=== PATIENT | female | born 1960 | race Caucasian/White ===

== ENCOUNTER → 2016-10-08 | Outpatient (CLI) | payer MEDICARE ==
--- NOTE | 2016-10-11 07:43 | MM ---
Reason for exam: screening (asymptomatic). Last mammogram was performed 1 year and 8 months ago. History: Patient is postmenopausal. Physical Findings: A clinical breast exam by your physician is recommended on an annual basis and results should be correlated with mammographic findings. MG 3D Screening Mammo W/Cad Bilateral CC and MLO view(s) were taken. Prior study comparison: January 31, 2015, bilateral MG screening mammo w CAD. November 23, 2012, CAD bilateral diagnostic mammogram. There are scattered fibroglandular densities. Finding: There are typically benign round calcifications in the right breast. There is no discrete abnormality. ASSESSMENT: Benign, BI-RAD 2 RECOMMENDATION: Routine screening mammogram of both breasts in 1 year. Manage on a clinical basis with regard to bilatearl pain.
== END | disposition home or self-care (01) ==
LOC: RADMAMWWP 07:28
PROVIDERS: ATTEND Internal Medicine
DX: Z12.31 Encounter for screening mammogram for malignant neoplasm of breast (principal)
CPT/HCPCS: 77052; 77063; G0202

== ENCOUNTER → 2016-12-07 | Outpatient (CLI) | payer MEDICARE, OTHER ==
[2016-12-07 11:24] LABS: Calcium 9.2 mg/dL (8.4-10.2)
[2016-12-07 12:00] LABS: Hemoglobin A1C 4.9 % (4.2-6.1)
--- NOTE | 2016-12-07 13:47 | XR ---
EXAMINATION TYPE: XR hand complete bilateral DATE OF EXAM: 12/07/2016 10:55 AM COMPARISON: NONE HISTORY: Pain TECHNIQUE: 3 view left hand FINDINGS: Left ankle: No acute fractures are evident. Joint spaces are preserved. Couple of punctate calcificat ions in the proximal interphalangeal joint space narrowing finger. Right hand: No acute fractures are evident. Soft tissues appear normal. Ulnar styloid avulsion with n onunion is likely present. IMPRESSION: 1. No acute osseous abnormality bilateral hands.
[2016-12-09 09:43] LABS: Vitamin E (Alpha Tocopherol) 980 ug/dL (500-1800)
[2016-12-13 10:29] LABS: Mis test requested (Blood) Vitamin B3/Niacin
[2016-12-15 19:39] LABS: Vitamin K 299 pg/mL (80-1160)
== END ==
LOC: LABWHC1 10:09
PROVIDERS: ATTEND Psychiatry & Neurology Pain Medicine
DX: M79.641 Pain in right hand (principal); M79.642 Pain in left hand; G89.29 Other chronic pain; Z79.899 Other long term (current) drug therapy
CPT/HCPCS: 36415; 82306; 82310; 82550; 82607; 83036; 83519; 83735; 84207; 84425; 84446; 84590; 84591; 84597

== ENCOUNTER → 2017-08-16 | Outpatient (CLI) | payer MEDICARE, OTHER ==
[2017-08-16 12:36] LABS: CH 29.7; CHCM 31.9; HCT 48.1 % (34.0-46.0); HDW 2.34; HGB 15.4 gm/dL (11.4-16.0); MCH 29.9 pg (25.0-35.0); MCV 93.6 fL (80.0-100.0); Mean Platelet Volume 7.6; RBC 5.14 m/uL (3.80-5.40); RDW 15.1 % (11.5-15.5); WBC 9.5 k/uL (3.8-10.6)
[2017-08-16 12:48] LABS: Anion Gap 12 mmol/L; Blood Urea Nitrogen 16 mg/dL (7-17); Calcium 10.2 mg/dL (8.4-10.2); Carbon Dioxide 24 mmol/L (22-30); Chloride 105 mmol/L (98-107); Glucose 92 mg/dL (74-99); Non-African American GFR(MDRD) >60 (>60 ml/min/1.73 sqM); Potassium 4.8 mmol/L (3.5-5.1); Sodium 141 mmol/L (137-145)
== END | disposition home or self-care (01) ==
LOC: LABWHC1 12:06
PROVIDERS: ATTEND Internal Medicine Clinical Cardiac Electrophysiology
DX: I49.3 Ventricular premature depolarization (principal)
CPT/HCPCS: 36415; 80048; 85027

== ENCOUNTER 2017-08-22 05:44 | Day surgery (SDC) | payer MEDICARE, OTHER ==
[2017-08-22] MEDS ORDERED: SODIUM CHLORIDE 0.9% 1,000 ML IV SCH (05:55)
[2017-08-22] MEDS ORDERED: HYDROmorphone 0.5 MG/0.5 ML SYRINGE IVP PRN (05:55)
[2017-08-22] MEDS ORDERED: LACTATED RINGERS 1,000 ML IV SCH (05:55)
[2017-08-22] MEDS ORDERED: MIDAZOLAM 2 MG/2 ML VIAL IV PRN (05:55)
[2017-08-22] MEDS ORDERED: MIDAZOLAM 2 MG/2 ML VIAL IV ONE (07:02)
[2017-08-22] MEDS ORDERED: ISOPROTERENOL 250 MCG/1.25 ML SYR IV ONE (07:26)
[2017-08-22] MEDS ORDERED: diphenhydrAMINE 50 MG/ML 1 ML VIAL ONE (07:26)
[2017-08-22] MEDS ORDERED: MIDAZOLAM 2 MG/2 ML VIAL ONE (07:26)
[2017-08-22] MEDS ORDERED: HEPARIN SODIUM,PORCINE 5,000 UNIT/ML 1 ML VIAL ONE (07:26)
[2017-08-22] MEDS ORDERED: fentaNYL (PF) 50 MCG/ML 2 ML AMP ONE (07:26)
[2017-08-22] MEDS ORDERED: ONDANSETRON 4 MG/2 ML VIAL ONE (07:26)
[2017-08-22] MEDS ORDERED: LIDOCAINE 2% INJ 20 MG/ML SQ ONE ×2 (08:21→08:30)
[2017-08-22] MEDS ORDERED: HEPARIN SODIUM,PORCINE/D5W PMX 25,000 UNIT in DEXTROSE/WATER 1 500ML.BAG IV ONE (09:54)
[2017-08-22] MEDS ORDERED: HEPARIN SODIUM (1,000 UNIT/ML) 1,000 UNIT in SODIUM CHLORIDE 0.9% 1,000 ML IRRIGATION ONE (10:30)
[2017-08-22] MEDS ORDERED: ACETAMINOPHEN IV (For NPO) 1,000 MG in EMPTY BAG 1 BAG IVPB ONE (12:04)
[2017-08-22] MEDS ORDERED: ACETAMINOPHEN TAB 325 MG TAB PO PRN (12:04)
[2017-08-22] MEDS ORDERED: HYDROcodone/APAP 5-325MG 1 EACH TAB PO PRN (12:04)
[2017-08-22] MEDS: SODIUM CHLORIDE 0.9% 500 ML IV ONE ×2 (12:36→14:33)
--- NOTE | 2017-08-22 13:04 | CE ---
CARDIAC ELECTROPHYSIOLOGY REPORT Brunilda Wan is a 56-year-old female who has recurrent palpitations and symptomatic PVCs with very high frequency. She has 2 different PVC morphologies with one predominant one for the left ventricle on the anterior base. She is brought in to the EP lab for an EP study and radiofrequency ablation. She also has a history of nonsustained atrial tachycardia and is on low-dose verapamil and this does not suppress her arrhythmias. Patient was brought to the EP lab in a fasting state. Written informed consent was obtained prior to the procedure. She was experiencing very frequent PVCs when she entered the lab, but even with light sedation which she received through the procedure, the PVC frequency significantly reduced. Therefore making the mapping process slow and tedious. Right and left groins were prepped and draped as per protocol. An 8-Yoruba sheath was placed in the right femoral artery and 3 venous sheaths were placed in the right and left femoral veins. Via these diagnostic catheters, intracardiac echo catheter, mapping catheter and ablation catheter were placed. The catheters were placed in the high right atrial, HIS bundle area, RV coronary sinus and the left ventricle. Sinus cycle length 1097 milliseconds, PA interval 178 milliseconds, QRS 79 milliseconds, QT 434 milliseconds. AH interval 74 milliseconds. HV interval 35 milliseconds. Sinus node recovery times of 600, 500, and 400 milliseconds. The 600 and 500 milliseconds were 639 and 1136 milliseconds respectively. Corresponding corrected sinus node recovery times were respectively. AV node Wenckebach block 410 milliseconds, VA Wenckebach block greater than 700 milliseconds. AV node ERP from coronary sinus was 500/380 milliseconds on Isuprel and with ventricular extra stimulation the ventricular ERP was 500/220 milliseconds on high-dose Isuprel. High-dose Isuprel did not induce any ventricular tachycardia. Intracardiac echocardiography was performed and 3-D mapping and anatomic mapping of the left ventricle and aortic root was performed. A PentaRay catheter was then placed in the left ventricle and mapping of the PVCs was performed. This PVC had a right bundle branch block morphology with an M shaped pattern in lead V1 and upright QRS's in the inferior leads and upright QRS's all along the precordial leads. The aVL was negatively oriented. Activation mapping was performed and was superimposed on the anatomic map of the left ventricle and the earliest activation site was identified just about 1.2 cm lateral to the left bundle that was tagged. Following that, the ablation catheter was then placed in the left ventricle and pace mapping was performed. Pace maps were suboptimal at these sites but the patient started to experience more PVCs as she was woken up and with very detailed mapping of the anterior base of the left ventricle the left bundle was identified and tagged and about 1.2 cm away laterally was the earliest activation site. Excellent bipolar signals which were earlier than the onset of the QRS as well as unipolar signals were obtained. RF ablation lesions were delivered at this site. The catheter was placed in a reverse loop and was very stable. Contact force was between 20 to 40 . RF ablation was begun at 10 painting then increased to 15 then to 20 and then to a max of 25 painting. Successful ablation was performed and thereafter no PVCs were identified from the left ventricle. Wide open Isuprel was used and during Isuprel infusion as well as during Isuprel withdrawal, no PVCs were induced. Ventricular extra stimulation was performed. No PVCs induced. Please note that the patient has a second PVC that was originally seen prior to inserting catheters. This is originating from the right ventricle closer to the apex and along the inferior wall but these PVCs subsided completely as mapping of the left ventricle was performed and were not seen even afterwards. If she experiences right- sided PVCs in the future, I will proceed with ablation of these PVCs. Following that, all catheters were removed. Intracardiac echo revealed absence of any pericardial effusion and normal LV function at the end of the procedure. Heparin had been given during the procedure and this was reversed at the end of the procedure and sheaths were removed. FemoStop was applied to the femoral artery puncture site. RESULT: Diagnostic EP study revealin. Normal baseline measurements. 2. Normal AH and HV intervals. 3. Normal sinus node function. 4. Normal AV node function without evidence for any slow pathway conduction or accessory pathway conduction. 5. Very frequent premature ventricular contractions of two different morphologies but one predominant morphology the second morphology subsided completely as the procedure went on. Successful mapping and ablation of an LV PVC from the base of the anterior LV just beyond the aortic root and about 1.2 cm lateral to the left bundle. The patient's AV node conduction remained intact. The PVCs were completely eliminated. MMODL / IJN: [id number] /
--- NOTE | 2017-08-22 13:16 | LTR ---
August 22, 2017 Re: Brunilda Wan Dear Dr. Jernigan: I had the pleasure of seeing Brunilda Wan in electrophysiology. Brunilda Wan underwent mapping and ablation of the left-sided PVCs and these PVCs were originating from the base of the anterior wall about 1.2 cm lateral to the left bundle/left-sided His bundle. They were successfully ablated without injuring the AV node. She also had a second PVC originating from the right ventricle but as the procedure went on these PVCs completely disappeared and therefore obviously were not mapped. If in the future these PVCs reappear, which is quite likely, we will proceed with mapping of these right-sided PVCs. I have asked her to take aspirin 325 mg p.o. daily for one month after this procedure. She also has nonsustained atrial tachycardia and therefore would continue verapamil for now. Thank you for entrusting me in the care of your patient. Warm regards. Sincerely, MD ALEJANDRO Amezcua / EDWIN: [id number] /
[2017-08-22] MEDS ORDERED: ONDANSETRON 4 MG/2 ML VIAL IVP PRN (16:56)
[2017-08-22] MEDS ORDERED: LATANOPROST 0.005% OPHTH DROPS 2.5 ML BTL BOTH EYES SCH (21:00)
[2017-08-22] MEDS ORDERED: MONTELUKAST 10 MG TAB PO SCH (21:00)
[2017-08-22 21:15] VITALS: BMI 30.4
[2017-08-23] MEDS: SERTRALINE 50 MG TAB PO SCH ×2 (00:11→08:22)
[2017-08-23] MEDS ORDERED: LEVOTHYROXINE 25 MCG TAB PO SCH (06:30)
[2017-08-23] MEDS ORDERED: PANTOPRAZOLE 40 MG TABLET PO SCH (07:30)
[2017-08-23 07:59] VITALS: RESP 18; TEMP 98.7
[2017-08-23] MEDS ORDERED: VERAPAMIL SR 120 MG TABLET.ER PO SCH (09:00)
[2017-08-23 12:11] VITALS: BP 124/58; PULSE 74
--- NOTE | 2017-08-23 18:30 | P.DS ---
Providers Attending physician: George Dailey Primary care physician: [facility] Course: Patient is doing well. She complains of a vague discomfort in the chest but looks very comfortable. This is a constant discomfort since yesterday since the ablation. Examination reveals no evidence for any pericardial rub. No JVD heart sounds are normal breath sounds are clear no rhonchi no crackles. She looks very comfortable she is resting comfortably in bed Afebrile 98.7F pulse rate in the 70s, blood pressure 124/58 mmHg Heart sounds S1 and S2 are normal Breath sounds are clear Extremity is warm no edema Groins have healed well Impression Very frequent PVCs from the anterior wall of the left ventricle anterior base just below the aortic root Status post ablation, successful This site was 1.2 cm lateral to the His bundle/left fascicle Today's 12-lead ECG shows sinus rhythm normal SD narrow QRS and normal ST segments No evidence for pericarditis on twelve-lead ECG or ischemia Plan Discharge home today and follow-up in the office in about 2 weeks Patient Condition at Discharge: Stable Plan - Discharge Summary Discharge Rx Participant: No New Discharge Prescriptions: New RX: Aspirin EC [Ecotrin] 325 mg PO DAILY #1 tablet. No Action Albuterol Sulfate [Proair Hfa] 1 - 2 puff INHALATION Q4HR PRN #1 inhaler PRN Reason: difficulty in breathing Sertraline HCl [Zoloft] 50 mg PO DAILY RX: Omeprazole 20 mg PO DAILY RX: Latanoprost Ophth [Xalatan 0.005%] 1 drop BOTH EYES HS Montelukast [Singulair] 10 mg PO HS Levothyroxine Sodium [Synthroid] 12.5 mcg PO DAILY ALPRAZolam [Xanax] 0.5 mg PO HS PRN PRN Reason: Anxiety Verapamil HCl [Verapamil ER] 120 mg PO DAILY Ibuprofen [Motrin] 400 mg PO Q6HR PRN PRN Reason: Moderate Pain Discharge Medication List Albuterol Sulfate [Proair Hfa] 1 - 2 puff INHALATION Q4HR PRN #1 inhaler [Rx] ALPRAZolam [Xanax] 0.5 mg PO HS PRN 08/17/17 [History] Levothyroxine Sodium [Synthroid] 12.5 mcg PO DAILY 08/17/17 [History] Montelukast [Singulair] 10 mg PO HS 08/17/17 [History] RX: Latanoprost Ophth [Xalatan 0.005%] 1 drop BOTH EYES HS 08/17/17 [History] RX: Omeprazole 20 mg PO DAILY 08/17/17 [History] Sertraline HCl [Zoloft] 50 mg PO DAILY 08/17/17 [History] Verapamil HCl [Verapamil ER] 120 mg PO DAILY 08/17/17 [History] Ibuprofen [Motrin] 400 mg PO Q6HR PRN 08/22/17 [History] RX: Aspirin EC [Ecotrin] 325 mg PO DAILY #1 tablet. 08/22/17 [Rx] Follow up Appointment(s)/Referral(s): George Dailey MD [STAFF PHYSICIAN] - 2 Weeks (Keep appointment as scheduled.) Patient Instructions/Handouts: Cardiac Ablation (DC) Care Plan Goals (MU): Post EP study - Ablation instructions 1. Keep access sites dry for 2 days. 2. No heavy lifting or straining for 2 days. 3. Avoid bending the hips repeatedly for 2 days. 4. You may go up and down stairs slowly Call if the following is noted 1. Bleeding, increasing swelling or pain at the access sites. 2. Increasing chest discomfort, especially upon taking a deep breath. 3. Increasing shortness of breath, at rest or with exertion. 4. Undue cough / phlegm 5. Difficulty or pain while swallowing. 6. Pain or change in color in the extremities. 7. Fever, chills, rigors. 8. Increasing headache or neurologic symptoms. 9. Dizziness, fainting, palpitations Discharge Disposition: HOME SELF-CARE
== END 2017-08-23 16:05 | disposition home or self-care (01) ==
LOC: CATHEP 05:44 → 3OBS 11:35 → CATHEP 08-23 16:05
PROVIDERS: ATTEND Internal Medicine Clinical Cardiac Electrophysiology
DX: I49.3 Ventricular premature depolarization (principal); I45.10 Unspecified right bundle-branch block; Z82.49 Family history of ischemic heart disease and other diseases of the circulatory system; E07.9 Disorder of thyroid, unspecified; K21.9 Gastro-esophageal reflux disease without esophagitis; Z79.51 Long term (current) use of inhaled steroids; Z79.899 Other long term (current) drug therapy; Z88.6 Allergy status to analgesic agent; Z88.3 Allergy status to other anti-infective agents
CPT/HCPCS: 93623; 93654; 93662

== ENCOUNTER → 2018-01-20 | Outpatient (CLI) | payer MEDICARE, OTHER ==
[2018-01-20 09:20] LABS: Basophils % (A) 0 %; Eosinophils # (A) 0.1 k/uL (0-0.7); Eosinophils % (A) 2 %; HCT 41.3 % (34.0-46.0); HGB 13.8 gm/dL (11.4-16.0); Lymphocytes # (A) 1.3 k/uL (1.0-4.8); Lymphocytes % (A) 21 %; MCH 30.4 pg (25.0-35.0); MCHC 33.5 g/dL (31.0-37.0); MCV 90.9 fL (80.0-100.0); Mean Platelet Volume 6.8; Monocytes # (A) 0.4 k/uL (0-1.0); Monocytes % (A) 6 %; Neutrophils # (A) 4.2 k/uL (1.3-7.7); Neutrophils % (A) 69 %; Platelet Count 285 k/uL (150-450); RBC 4.54 m/uL (3.80-5.40); RDW 14.1 % (11.5-15.5); WBC 6.1 k/uL (3.8-10.6)
[2018-01-20 10:39] LABS: ALT 17 U/L (9-52); AST 16 U/L (14-36); Albumin 3.9 g/dL (3.5-5.0); Alkaline Phosphatase 68 U/L (38-126); Anion Gap 14 mmol/L; Blood Urea Nitrogen 27 mg/dL (7-17); Calcium 9.5 mg/dL (8.4-10.2); Carbon Dioxide 25 mmol/L (22-30); Chloride 107 mmol/L (98-107); Cholesterol 211 mg/dL (<200); Glucose 95 mg/dL (74-99); HDL Cholesterol 63 mg/dL (40-60); LDL Cholesterol,Calculated 132 mg/dL (0-99); Potassium 4.3 mmol/L (3.5-5.1); Sodium 146 mmol/L (137-145); Total Bilirubin 0.4 mg/dL (0.2-1.3); Total Protein 6.3 g/dL (6.3-8.2); Triglycerides 80 mg/dL (<150)
[2018-01-20 10:57] LABS: T4, Free (Free Thyroxine) 0.94 ng/dL (0.78-2.19)
== END | disposition home or self-care (01) ==
LOC: LABWHC1 08:40
PROVIDERS: ATTEND Internal Medicine
DX: I10 Essential (primary) hypertension (principal); E78.5 Hyperlipidemia, unspecified; E03.9 Hypothyroidism, unspecified; E66.9 Obesity, unspecified; D32.0 Benign neoplasm of cerebral meninges; I63.9 Cerebral infarction, unspecified
CPT/HCPCS: 36415; 80053; 80061; 84439; 84443; 84481; 85025

== ENCOUNTER → 2018-01-23 | Outpatient (CLI) | payer MEDICARE, OTHER ==
--- NOTE | 2018-01-23 18:31 | US ---
EXAMINATION TYPE: US carotid duplex BILAT DATE OF EXAM: 01/23/2018 COMPARISON: NONE CLINICAL HISTORY: I63.9 Cerebral infarction / D32.9 Meningioma. TIA weakness EXAM MEASUREMENTS: RIGHT: Peak Systolic Velocity (PSV) cm/sec ----- Right CCA: 90.0 ----- Right ICA: 94.4 ----- Right ECA: 95.8 ICA/CCA ratio: 1.0 RIGHT: End Diastole cm/sec ----- Right CCA: 24.6 ----- Right ICA: 33.3 ----- Right ECA: 11.5 LEFT: Peak Systolic Velocity (PSV) cm/sec ----- Left CCA: 73.9 ----- Left ICA: 84.5 ----- Left ECA: 97.7 ICA/CCA ratio: 1.1 LEFT: End Diastole cm/sec ----- Left CCA: 21.0 ----- Left ICA: 26.3 ----- Left ECA: 10.4 VERTEBRALS (direction of flow): Right Vertebral: Antegrade Left Vertebral: Antegrade Rhythm: Normal No significant stenosis seen IMPRESSION: There is antegrade flow in the vertebral arteries. The images and measurements suggest l ess than 25% stenosis in both internal carotid arteries. Criteria for Assigning % of Stenosis / Diameter reduction (Estimation based on the indirect measurements of the internal carotid artery velocities (ICA PSV). 1. Normal (no stenosis)=ICA PSV < 125 cm/s: ratio < 2.0: ICA EDV<40 cm/s. 2. Less than 50% stenosis=ICA PSV < 125 cm/s: ratio < 2.0: ICA EDV<40 cm/s. 3. 50 to 69% stenosis=ICA PSV of 125 to 230 cm/s: ration 2.0 ? 4.0: ICA EDV 40-100 cm/s. 4. Greater than 70% stenosis to near occlusion= ICA PSV > 230 cm/s: ratio > 4.0: ICA EDV > 100 cm/s. 5. Near occlusion= ICA PSV velocities may be low or undetectable: variable ratio and ICA EDV. 6. Total occlusion=unable to detect flow.
--- NOTE | 2018-01-23 23:51 | MR ---
EXAMINATION TYPE: MR brain wo/w con DATE OF EXAM: 01/23/2018 COMPARISON: NONE HISTORY: TIA, meningioma TECHNIQUE: Multiplanar, multisequence images of the brain and brainstem is performed without and with IV contras t, utilizing 7.5 mL intravenous Gadavist . FINDINGS: On the FLAIR images there are scattered white matter high signal foci at the figueroa-white mat ter junction of both cerebral hemispheres. The largest measures 8 mm on the left side. The total numb ers less than 10. There is a 1 cm area of slight increased signal on the right side of the sangita. Ther e is no midline shift. There is no sign of intracranial hemorrhage. The contrast images show no patho logic enhancement. Sella turcica appears normal. IMPRESSION: There are scattered white matter lesions that also involve the right side of the sangita. Th erum appear slightly more numerous and larger than the previous exam. This could relate to demyelinati ng disease or microvascular ischemia. I do not see evidence of a meningioma.
== END | disposition home or self-care (01) ==
LOC: RADMRIMAIN 16:59
PROVIDERS: ATTEND Psychiatry & Neurology Neurology
DX: I63.9 Cerebral infarction, unspecified (principal); Z88.2 Allergy status to sulfonamides; Z88.1 Allergy status to other antibiotic agents
CPT/HCPCS: 70553; 93880

== ENCOUNTER → 2018-02-16 | Outpatient (CLI) | payer MEDICARE, OTHER ==
--- NOTE | 2018-02-16 13:40 | MM ---
Reason for exam: screening (asymptomatic). Last mammogram was performed 1 year and 4 months ago. History: Patient is postmenopausal. Physical Findings: A clinical breast exam by your physician is recommended on an annual basis and results should be correlated with mammographic findings. MG 3D Screening Mammo W/Cad Bilateral CC and MLO view(s) were taken. Prior study comparison: October 08, 2016, bilateral MG 3d screening mammo w/cad. January 31, 2015, bilateral MG screening mammo w CAD. There are scattered fibroglandular densities. No suspicious abnormality. ASSESSMENT: Negative, BI-RAD 1 RECOMMENDATION: Routine screening mammogram of both breasts in 1 year. Manage patient on a clinical basis. Clinical evaluation of patient's left breast lump/soreness. If this is a new finding diagnostic ultrasound of the left breast is recommended.
== END | disposition home or self-care (01) ==
LOC: RADMAMWWP 08:23
PROVIDERS: ATTEND Internal Medicine
DX: Z12.31 Encounter for screening mammogram for malignant neoplasm of breast (principal)
CPT/HCPCS: 77063; 77067

== ENCOUNTER 2018-03-13 06:43 | Emergency (ER) | payer MEDICARE, OTHER ==
[2018-03-13 06:50] VITALS: BP 138/82; PULSE 78; RESP 20; TEMP 98.1
[2018-03-13] MEDS ORDERED: AMOXIC-POT CLAV 875-125MG 1 EACH TAB PO STA (07:39)
[2018-03-13] MEDS ORDERED: predniSONE 50 MG TAB PO STA (07:39)
--- NOTE | 2018-03-13 07:44 | ED ---
URI HPI - General Chief Complaint: Upper Respiratory Infection Stated Complaint: Sore Thorat/Cough/SOB Time Seen by Provider: 03/13/18 07:20 Source: patient, RN notes reviewed Mode of arrival: ambulatory Limitations: no limitations - History of Present Illness Initial Comments: This is a 57-year-old female with a history of asthma COPD who states she had the onset over the past 1-2 days of sore throat cough with yellow phlegm some sweats slight headache. She states her developed this 2 days earlier after going to a graduation ceremony a local auditory and. She denies any chest pain with this no lightheadedness or dizziness just a cough. She states she does have an albuterol inhaler at home this has helped somewhat with the cough but now feel her symptoms. No other modifying factors at this time MD Complaint: cough, sore throat, other - Related Data Home Medications Medication Instructions Recorded Confirmed ALPRAZolam [Xanax] 0.5 mg PO HS PRN 08/17/17 08/22/17 Latanoprost Ophth [Xalatan 0.005%] 1 drop BOTH EYES HS 08/17/17 08/22/17 Levothyroxine Sodium [Synthroid] 12.5 mcg PO DAILY 08/17/17 08/22/17 Montelukast [Singulair] 10 mg PO HS 08/17/17 08/22/17 Omeprazole 20 mg PO DAILY 08/17/17 08/22/17 Sertraline HCl [Zoloft] 50 mg PO DAILY 08/17/17 08/22/17 Verapamil HCl [Verapamil ER] 120 mg PO DAILY 08/17/17 08/22/17 Ibuprofen [Motrin] 400 mg PO Q6HR PRN 08/22/17 08/22/17 Previous Rx's Medication Instructions Recorded Albuterol Sulfate [Proair Hfa] 1 - 2 puff INHALATION Q4HR PRN #1 01/11/16 inhaler Aspirin EC [Ecotrin] 325 mg PO DAILY #1 tablet. 08/22/17 Amoxicillin/Potassium Clav 1 tab PO Q12HR #20 tab 03/13/18 [Augmentin 875-125 Tablet] predniSONE 20 mg PO BID #10 tab 03/13/18 Allergies Allergy/AdvReac Type Severity Reaction Status Date / Time bacitracin Allergy Rash/Hives Verified 03/13/18 06:50 bacitracin zinc Allergy Rash/Hives Verified 03/13/18 06:50 [From Neosporin ([id number])] ketorolac [From Toradol] Allergy Swelling Verified 03/13/18 06:50 neomycin sulfate Allergy Rash/Hives Verified 03/13/18 06:50 [From Neosporin ([id number])] polymyxin B Allergy Rash/Hives Verified 03/13/18 06:50 [From Neosporin ([id number])] Review of Systems ROS Statement: Those systems with pertinent positive or pertinent negative responses have been documented in the HPI. ROS Other: All systems not noted in ROS Statement are negative. Past Medical History Past Medical History: Asthma, GERD/Reflux Additional Past Medical History / Comment(s): hiatel hernia, glaucoma History of Any Multi-Drug Resistant Organisms: None Reported Past Surgical History: Cholecystectomy Additional Past Surgical History / Comment(s): carpal tunnel, sinus surgery, heart ablasion Past Psychological History: No Psychological Hx Reported Smoking Status: Former smoker Past Alcohol Use History: None Reported Past Drug Use History: Marijuana General Exam - General Exam Comments Initial Comments: This is a well-developed well-nourished awake alert oriented 3 female Limitations: no limitations General appearance: alert, in no apparent distress Head exam: Present: atraumatic, normocephalic, normal inspection Eye exam: Present: normal appearance, PERRL, EOMI. Absent: scleral icterus, conjunctival injection, periorbital swelling ENT exam: Present: TM's normal bilaterally, other (Posterior pharyngeal hyperemia with tonsillar hyperemia mild prominence of the tonsils.) Neck exam: Present: normal inspection, full ROM, other (Some nontender lymphadenopathy noted.) Respiratory exam: Present: other (Some basilar rhonchi that clear with coughing and deep breathing.) Cardiovascular Exam: Present: regular rate, normal rhythm, normal heart sounds. Absent: systolic murmur, diastolic murmur, rubs, gallop, clicks GI/Abdominal exam: Present: soft, normal bowel sounds. Absent: distended, tenderness, guarding, rebound, rigid Extremities exam: Present: normal inspection, full ROM, normal capillary refill. Absent: tenderness, pedal edema, joint swelling, calf tenderness Back exam: Present: normal inspection Neurological exam: Present: alert, oriented X3, CN II-XII intact Psychiatric exam: Present: normal affect, normal mood Skin exam: Present: warm, dry, intact, normal color. Absent: rash Course Vital Signs 03/13/18 06:47 Temperature 98.1 F Pulse Rate 78 Respiratory 20 Rate Blood Pressure 138/82 O2 Sat by Pulse 97 Oximetry Medical Decision Making - Medical Decision Making No further workup was indicated this time the presentation is consistent with a tonsillitis and bronchitis. Patient will be placed on appropriate medication she has an inhaler at home she is instructed to use this as needed Disposition Clinical Impression: Tonsillitis, Tracheobronchitis Disposition: HOME SELF-CARE Condition: Good Instructions: Tonsillitis (ED), Acute Bronchitis (ED) Prescriptions: Amoxicillin/Potassium Clav [Augmentin 875-125 Tablet] 1 tab PO Q12HR #20 tab predniSONE 20 mg PO BID #10 tab Is patient prescribed a controlled substance at d/c from ED?: No Referrals: Jay Fall DO [Primary Care Provider] - 1-2 days
== END 2018-03-13 07:50 | disposition home or self-care (01) ==
LOC: EC 06:43
DX: J03.90 Acute tonsillitis, unspecified (principal); J44.9 Chronic obstructive pulmonary disease, unspecified; K21.9 Gastro-esophageal reflux disease without esophagitis; Z87.891 Personal history of nicotine dependence; Z79.899 Other long term (current) drug therapy; Z88.1 Allergy status to other antibiotic agents; Z88.6 Allergy status to analgesic agent
CPT/HCPCS: 99283 ×2; 73721; J7512

== ENCOUNTER → 2018-03-13 | Outpatient (CLI) | payer MEDICARE, OTHER ==
--- NOTE | 2018-03-13 08:24 | MR ---
EXAMINATION TYPE: MR knee RT wo con DATE OF EXAM: 03/13/2018 COMPARISON: NONE HISTORY: Right knee pain TECHNIQUE: Multiplanar, multisequence imaging of the right knee is performed without IV contrast. FINDINGS: MEDIAL MENISCUS: There is blunting of the free edge of the posterior horn of the lateral meniscus com patible with a small radial tear appearing more pronounced at the superior articular surface. LATERAL MENISCUS: Anterior and posterior horns are intact without tear. CRUCIATE LIGAMENTS: The anterior and posterior cruciate ligaments are intact and unremarkable. COLLATERAL LIGAMENTS: The medial collateral ligament and lateral collateral ligament complex are inta ct and unremarkable. EXTENSOR MECHANISM: Visualized quadriceps and patellar tendons are intact. There is slight increased signal at the origin of the patellar tendon insertion of the quadriceps tendon compatible low-grade i njury. Minimal nonspecific subcutaneous soft tissue swelling is seen overlying the patellar tendon. EFFUSION: No significant suprapatellar joint effusion. POPLITEAL CYST: There is a mildly loculated popliteal cyst that is elongated measuring at least 5.3 cm in craniocaudal dimension. TRICOMPARTMENT SPACES: There is mild medial compartment and patellofemoral compartment joint space na rrowing. CARTILAGE: Patellofemoral cartilage is slightly heterogenous in signal in the lateral facet but maint ained. There is partial thickness chondral defect of the weightbearing surface of the medial femoral condyle measuring 1.1 cm x 0.6 cm with focal fissure more laterally. There is generalized thinning and signal heterogeneity in the lateral compartment cartilage with smal l focal fissure towards the tibial eminence and small partial thickness chondral defect measuring 5 m m. BONE MARROW SIGNAL: There are bilateral stable appearing osteochondral defects. Within the lateral fe moral condyle the osteochondral defect measures 1.8 x 0.9 cm in anterior posterior by transverse dime nsion. Within the medial femoral condyle the osteochondral defect at the posterior weightbearing surf manoj is best seen on coronal images measuring 9 mm in transverse dimension and 9 mm in anterior notch machine operator ior dimension. This also appears stable. IMPRESSION: 1. Small radial tear of the free edge of the posterior horn of the medial meniscus best seen at the s uperior articular surface. 2. Stable appearing osteochondral defects of both the medial femoral condyle and lateral femoral cond yle measuring up to 1.8 cm within the lateral femoral condyle and 9 mm within the medial femoral cond yle. 3. Tricompartmental arthrosis and tricompartmental chondrosis with no full-thickness cartilaginous de fects. Partial-thickness chondral defect of the medial weightbearing surface measures 1.1 cm. 4. Elongated multiloculated popliteal cyst extending 5.3 cm in craniocaudal dimension. 5. Minimal increased signal at the insertion of the quadriceps tendon and origin of the patellar tend on compatible with low-grade injury.
== END | disposition home or self-care (01) ==
LOC: RADMRIMAIN 06:06
PROVIDERS: ATTEND Psychiatry & Neurology Pain Medicine
DX: S83.241A Other tear of medial meniscus, current injury, right knee, initial encounter (principal); M17.11 Unilateral primary osteoarthritis, right knee

== ENCOUNTER → 2018-06-01 | Outpatient (CLI) | payer MEDICARE, OTHER ==
[2018-06-01 09:05] LABS: T4, Free (Free Thyroxine) 0.94 ng/dL (0.78-2.19)
[2018-06-01 21:02] LABS: Iron Saturation 31.45 (12.00-45.00)
== END | disposition home or self-care (01) ==
LOC: LABWHC1 08:00
PROVIDERS: ATTEND Psychiatry & Neurology Neurology
DX: E03.9 Hypothyroidism, unspecified (principal); R53.82 Chronic fatigue, unspecified
CPT/HCPCS: 36415; 82607; 82728; 82746; 83540; 83550; 84207; 84425; 84439; 84443; 84466; 84481; 84591

== ENCOUNTER 2018-07-09 08:18 | Emergency (ER) | payer MEDICARE, OTHER ==
[2018-07-09] MEDS ORDERED: ONDANSETRON 4 MG/2 ML VIAL IVP STA (08:36)
[2018-07-09] MEDS ORDERED: SODIUM CHLORIDE 0.9% 2,000 ML IV STA (08:36)
[2018-07-09] MEDS ORDERED: SODIUM CHLORIDE 0.9% 1,000 ML IV STA (08:36)
--- NOTE | 2018-07-09 09:02 | ED ---
Nausea/Vomiting/Diarrhea HPI - General Chief complaint: Nausea/Vomiting/Diarrhea Stated complaint: Stomach pain/vomiting Time Seen by Provider: 07/09/18 08:29 Source: patient, family, RN notes reviewed Mode of arrival: wheelchair Limitations: no limitations - History of Present Illness Initial comments: This is a 57-year-old female who had the onset of nausea vomiting and diarrhea about 4 AM this morning. She's had multiple episodes of nausea vomiting and presents retching and vomiting to the emergency department. states that they're concerned about food poisoning days the same restaurant but had different food last night. She has not been sick. Additionally she has been sprain plants yesterday for about 4 hours with spinasyd and was concerned this may be the cause. No fevers chills nausea vomiting sweats chest pain or shortness of breath MD complaint: nausea, vomiting, diarrhea - Related Data Home Medications Medication Instructions Recorded Confirmed ALPRAZolam [Xanax] 0.5 mg PO HS PRN 08/17/17 08/22/17 Latanoprost Ophth [Xalatan 0.005%] 1 drop BOTH EYES HS 08/17/17 08/22/17 Levothyroxine Sodium [Synthroid] 12.5 mcg PO DAILY 08/17/17 08/22/17 Montelukast [Singulair] 10 mg PO HS 08/17/17 08/22/17 Omeprazole 20 mg PO DAILY 08/17/17 08/22/17 Sertraline HCl [Zoloft] 50 mg PO DAILY 08/17/17 08/22/17 Verapamil HCl [Verapamil ER] 120 mg PO DAILY 08/17/17 08/22/17 Ibuprofen [Motrin] 400 mg PO Q6HR PRN 08/22/17 08/22/17 Previous Rx's Medication Instructions Recorded Albuterol Sulfate [Proair Hfa] 1 - 2 puff INHALATION Q4HR PRN #1 01/11/16 inhaler Aspirin EC [Ecotrin] 325 mg PO DAILY #1 tablet. 08/22/17 Amoxicillin/Potassium Clav 1 tab PO Q12HR #20 tab 03/13/18 [Augmentin 875-125 Tablet] predniSONE 20 mg PO BID #10 tab 03/13/18 Promethazine [Phenergan] 25 mg PO Q6HR PRN #12 tablet 07/09/18 Allergies Allergy/AdvReac Type Severity Reaction Status Date / Time bacitracin Allergy Rash/Hives Verified 03/13/18 06:50 bacitracin zinc Allergy Rash/Hives Verified 03/13/18 06:50 [From Neosporin ([id number])] ketorolac [From Toradol] Allergy Swelling Verified 03/13/18 06:50 neomycin sulfate Allergy Rash/Hives Verified 03/13/18 06:50 [From Neosporin ([id number])] polymyxin B Allergy Rash/Hives Verified 03/13/18 06:50 [From Neosporin ([id number])] Review of Systems ROS Statement: Those systems with pertinent positive or pertinent negative responses have been documented in the HPI. ROS Other: All systems not noted in ROS Statement are negative. Past Medical History Past Medical History: Asthma, GERD/Reflux Additional Past Medical History / Comment(s): hiatel hernia, glaucoma History of Any Multi-Drug Resistant Organisms: None Reported Past Surgical History: Cholecystectomy Additional Past Surgical History / Comment(s): carpal tunnel, sinus surgery, heart ablasion Past Psychological History: No Psychological Hx Reported Smoking Status: Former smoker Past Alcohol Use History: None Reported Past Drug Use History: Marijuana General Exam - General Exam Comments Initial Comments: This is a well-developed well-nourished awake alert oriented 3 female she is actively vomiting Limitations: no limitations General appearance: alert, anxious, in distress Head exam: Present: atraumatic, normocephalic, normal inspection Eye exam: Present: normal appearance, PERRL, EOMI. Absent: scleral icterus, conjunctival injection, periorbital swelling ENT exam: Present: mucous membranes dry Neck exam: Present: normal inspection. Absent: tenderness, meningismus, lymphadenopathy Respiratory exam: Present: normal lung sounds bilaterally. Absent: respiratory distress, wheezes, rales, rhonchi, stridor Cardiovascular Exam: Present: regular rate, normal rhythm, normal heart sounds. Absent: systolic murmur, diastolic murmur, rubs, gallop, clicks GI/Abdominal exam: Present: soft, normal bowel sounds. Absent: distended, tenderness, guarding, rebound, rigid Extremities exam: Present: normal inspection, full ROM, normal capillary refill. Absent: tenderness, pedal edema, joint swelling, calf tenderness Back exam: Present: normal inspection Neurological exam: Present: alert, oriented X3, CN II-XII intact Psychiatric exam: Present: normal affect, anxious Skin exam: Present: warm, dry, intact, normal color. Absent: rash Course Vital Signs 07/09/18 08:24 Temperature 97.6 F Pulse Rate 73 Respiratory 22 Rate Blood Pressure 162/94 O2 Sat by Pulse 99 Oximetry Medical Decision Making - Medical Decision Making I did reevaluate patient several occasions she is feeling much improved at this time she will be discharged - Lab Data Result diagrams: 07/09/18 09:07 07/09/18 09:07 Lab Results 07/09/18 07/09/18 07/09/18 Range/Units 09:07 09:07 09:07 WBC 14.3 H (3.8-10.6) k/uL RBC 4.89 (3.80-5.40) m/uL Hgb 14.7 (11.4-16.0) gm/dL Hct 43.4 (34.0-46.0) % MCV 88.8 (80.0-100.0) fL MCH 30.0 (25.0-35.0) pg MCHC 33.8 (31.0-37.0) g/dL RDW 14.4 (11.5-15.5) % Plt Count 303 (150-450) k/uL Neutrophils % 91 % Lymphocytes % 5 % Monocytes % 3 % Eosinophils % 1 % Basophils % 0 % Neutrophils # 13.0 H (1.3-7.7) k/uL Lymphocytes # 0.7 L (1.0-4.8) k/uL Monocytes # 0.4 (0-1.0) k/uL Eosinophils # 0.1 (0-0.7) k/uL Basophils # 0.0 (0-0.2) k/uL Sodium 142 (137-145) mmol/L Potassium 4.4 (3.5-5.1) mmol/L Chloride 111 H (98-107) mmol/L Carbon Dioxide 21 L (22-30) mmol/L Anion Gap 10 mmol/L BUN 23 H (7-17) mg/dL Creatinine 0.72 (0.52-1.04) mg/dL Est GFR (CKD-EPI)AfAm >90 (>60 ml/min/1.73 sqM) Est GFR (CKD-EPI)NonAf >90 (>60 ml/min/1.73 sqM) Glucose 196 H (74-99) mg/dL Calcium 9.6 (8.4-10.2) mg/dL Total Bilirubin 0.6 (0.2-1.3) mg/dL AST 21 (14-36) U/L ALT 25 (9-52) U/L Alkaline Phosphatase 87 (38-126) U/L Total Creatine Kinase 104 (30-135) U/L CK-MB (CK-2) 1.2 (0.0-2.4) ng/mL CK-MB (CK-2) Rel Index 1.2 Troponin I <0.012 (0.000-0.034) ng/mL Total Protein 7.0 (6.3-8.2) g/dL Albumin 4.3 (3.5-5.0) g/dL Amylase 90 (30-110) U/L Lipase 156 (23-300) U/L - Radiology Data Radiology results: report reviewed, image reviewed (I did review the imaging and report no acute findings.) Disposition Clinical Impression: Gastroenteritis, Dehydration Disposition: HOME SELF-CARE Condition: Good Instructions: Acute Nausea and Vomiting (ED), Acute Diarrhea (ED), Dehydration (ED) Prescriptions: Promethazine [Phenergan] 25 mg PO Q6HR PRN #12 tablet PRN Reason: Nausea Is patient prescribed a controlled substance at d/c from ED?: No Referrals: Jay Fall DO [Primary Care Provider] - 1-2 days
[2018-07-09 09:16] LABS: Basophils % (A) 0 %; Eosinophils # (A) 0.1 k/uL (0-0.7); Eosinophils % (A) 1 %; HCT 43.4 % (34.0-46.0); HGB 14.7 gm/dL (11.4-16.0); Lymphocytes # (A) 0.7 k/uL (1.0-4.8); Lymphocytes % (A) 5 %; MCHC 33.8 g/dL (31.0-37.0); MCV 88.8 fL (80.0-100.0); Mean Platelet Volume 6.9; Monocytes # (A) 0.4 k/uL (0-1.0); Monocytes % (A) 3 %; Neutrophils % (A) 91 %; Platelet Count 303 k/uL (150-450); RBC 4.89 m/uL (3.80-5.40); RDW 14.4 % (11.5-15.5); WBC 14.3 k/uL (3.8-10.6)
[2018-07-09 09:25] LABS: ALT 25 U/L (9-52); AST 21 U/L (14-36); Albumin 4.3 g/dL (3.5-5.0); Alkaline Phosphatase 87 U/L (38-126); Amylase 90 U/L (30-110); Anion Gap 10 mmol/L; Blood Urea Nitrogen 23 mg/dL (7-17); Calcium 9.6 mg/dL (8.4-10.2); Carbon Dioxide 21 mmol/L (22-30); Chloride 111 mmol/L (98-107); Glucose 196 mg/dL (74-99); Lipase 156 U/L (23-300); Potassium 4.4 mmol/L (3.5-5.1); Sodium 142 mmol/L (137-145); Total Bilirubin 0.6 mg/dL (0.2-1.3)
[2018-07-09] MEDS ORDERED: PROMETHAZINE INJ 25 MG in SODIUM CHLORIDE 0.9% 50 ML IVPB STA (09:26)
[2018-07-09 09:38] LABS: Creatine Kinase 104 U/L (30-135)
[2018-07-09 09:51] LABS: Creatine Kinase MB 1.2 ng/mL (0.0-2.4); Troponin I <0.012 ng/mL (0.000-0.034)
--- NOTE | 2018-07-09 10:23 | XR ---
EXAMINATION TYPE: XR KUB , 2 VIEWS DATE OF EXAM ORDERED: 07/09/2018 HISTORY: pain. COMPARISON: None. FINDINGS: The lung bases are clear. Within the abdomen, the gallbladder is been removed. There is a paucity of gas within the bowel. Ther e is no evidence of obstruction or free air. No unusual calcifications are seen. IMPRESSION: NO ACUTE INTRA-ABDOMINAL ABNORMALITY.
[2018-07-09 11:33] VITALS: BP 131/79; PULSE 69; RESP 18; TEMP 98.2
== END 2018-07-09 11:33 | disposition home or self-care (01) ==
LOC: EC 08:18
DX: K52.9 Noninfective gastroenteritis and colitis, unspecified (principal); J45.909 Unspecified asthma, uncomplicated; K21.9 Gastro-esophageal reflux disease without esophagitis; H40.9 Unspecified glaucoma; Z87.19 Personal history of other diseases of the digestive system; Z90.49 Acquired absence of other specified parts of digestive tract; Z87.891 Personal history of nicotine dependence; Z79.899 Other long term (current) drug therapy; Z88.1 Allergy status to other antibiotic agents; Z88.6 Allergy status to analgesic agent
CPT/HCPCS: 36415; 80053; 82150; 82550; 82553; 83690; 84484; 85025; 74018; 99284; 96365; 96375; 96361; J2550; J2405

== ENCOUNTER → 2019-05-02 | Outpatient (CLI) | payer MEDICARE, OTHER ==
--- NOTE | 2019-05-02 13:41 | XR ---
EXAMINATION TYPE: XR cervical spine 6 views comp, XR lumbosacral spine 5 views DATE OF EXAM: 05/02/2019 COMPARISON: None HISTORY: 58-year-old female cervicalgia and low back pain FINDINGS: Cervical spine: Degenerative changes of the C1 dens articulation. No predental space widening or prevertebral soft ti ssue swelling. Moderate disc/endplate degenerative change at C5-C7 levels with endplate spondylosis. Facet arthropathy and uncovertebral joint arthropathy also noted mid cervical spine. On the right, there is moderate bony neuroforaminal narrowing at C5-C6. On the left, there is mild bony neuroforaminal narrowing C4-C5 and C5-C6 and mild to moderate at C6-C 7. Normal odontoid view. Cervical alignment is maintained. Lumbar spine: No pars interarticularis defect. Facet arthropathy lower lumbar spine. Transitional lumbosacral segme nt is noted as a sacralized L5. Vertebral body heights are preserved and alignment is maintained. Mil d degenerative disc disease throughout. IMPRESSION: 1. Cervical spine: Moderate spondylotic change especially from C5 through C7 levels. No malalignment. 2. Lumbar spine: Facet arthropathy lower lumbar spine and a transitional lumbosacral segment (sacrali zed L5). Mild multilevel degenerative disc disease. No vertebral compression collapse or malalignment .
== END | disposition home or self-care (01) ==
LOC: RADXRMAIN 11:26
PROVIDERS: ATTEND Family Medicine
DX: M51.36 Other intervertebral disc degeneration, lumbar region (principal); M47.812 Spondylosis without myelopathy or radiculopathy, cervical region; M46.96 Unspecified inflammatory spondylopathy, lumbar region
CPT/HCPCS: 72050; 72110

== ENCOUNTER → 2019-05-18 | Outpatient (CLI) | payer MEDICARE, OTHER ==
--- NOTE | 2019-05-18 19:57 | MR ---
EXAMINATION TYPE: MR cervical spine wo con DATE OF EXAM: 05/18/2019 COMPARISON: Plain film 05/02/2019 HISTORY: Neck pain, Vincent arm pain/stiffness TECHNIQUE: Multiplanar, multisequence images of the cervical spine were acquired. C2-C3: No evidence for degenerative disc disease. No disc bulge/herniation or protrusion. No Canal stenosis. Foramina are patent bilaterally. C3-C4: No evidence for degenerative disc disease. No disc bulge/herniation or protrusion. No Canal stenosis. Foramina are patent bilaterally. C4-C5: Posterior extension endplate disc complex causes anterior mass effect on the thecal sac and mi ld central stenosis. Uncovertebral joint hypertrophy results in bilateral foraminal encroachment. C5-C6: Similar findings as at C4-5, posterior extension endplate disc complex may contact the anterio r cervical cord, there is mild to moderate central stenosis. Bilateral foraminal encroachment is note d. C6-C7: Posterior extension endplate disc complex results in mild central stenosis. There is some left -sided foraminal encroachment greater than right. C7-T1: No evidence for degenerative disc disease. No disc bulge/herniation or protrusion. No Canal stenosis. Foramina are patent bilaterally. Cervical segments are intact. There is normal alignment. Cervical spinal cord is of normal signal. Craniovertebral junction relationships are within normal limits. Cervical vertebral bodies show anita e endplate discogenic marrow signal change, spondylosis especially at C4-5, C5-6 and C6-7 with associ ated loss of disc height and signal compatible disc desiccation and degenerative disc disease. IMPRESSION: Degenerative disc disease, foraminal encroachment as described.
== END | disposition home or self-care (01) ==
LOC: RADMRIMAIN 14:39
PROVIDERS: ATTEND Family Medicine
DX: M50.323 Other cervical disc degeneration at C6-C7 level (principal); M47.812 Spondylosis without myelopathy or radiculopathy, cervical region
CPT/HCPCS: 72141

== ENCOUNTER → 2019-05-30 | Outpatient (CLI) | payer MEDICARE, OTHER ==
--- NOTE | 2019-05-31 14:28 | MM ---
Reason for exam: screening (asymptomatic). Last mammogram was performed 1 year and 3 months ago. History: Patient is postmenopausal. Took hormonal contraceptives for 7 years. Physical Findings: A clinical breast exam by your physician is recommended on an annual basis and results should be correlated with mammographic findings. MG 3D Screening Mammo W/Cad Bilateral CC and MLO view(s) were taken. Prior study comparison: February 16, 2018, bilateral MG 3d screening mammo w/cad. October 08, 2016, bilateral MG 3d screening mammo w/cad. There are scattered fibroglandular densities. There is no discrete abnormality. ASSESSMENT: Negative, BI-RAD 1 RECOMMENDATION: Routine screening mammogram of both breasts in 1 year.
== END | disposition home or self-care (01) ==
LOC: RADMAMWWP 08:34
PROVIDERS: ATTEND Family Medicine
DX: Z12.31 Encounter for screening mammogram for malignant neoplasm of breast (principal)
CPT/HCPCS: 77063; 77067

== ENCOUNTER → 2019-06-16 | Outpatient (CLI) | payer MEDICARE, OTHER ==
--- NOTE | 2019-06-17 17:41 | MR ---
EXAMINATION TYPE: MR brain wo/w con DATE OF EXAM: 06/16/2019 COMPARISON: Prior MRI brain January 23, 2018 HISTORY: Headaches TECHNIQUE: Multiplanar, multisequence images of the brain and brainstem is performed without and with IV contras t, utilizing 7 mL intravenous Gadavist . FINDINGS: Diffusion weighted images demonstrate no evidence of a recent infarct or other diffusion ab normality. There is no worrisome extra-axial fluid collection. There is diffuse ventricular and sulc al prominence. Some scattered foci T2 intensity is seen throughout the white matter bilaterally. Refe rence 6 mm posterior left frontal lesion noted at axial image 20. Lesions are nonspecific in appearan ce and distribution and are most likely on basis of product of chronic small vessel ischemic change i n patient of this age. Midline structures demonstrate normal morphology. The craniocervical junction appears within normal limits. Post contrast images demonstrate no abnormal enhancement. The dural venous sinuses appear pa tent. The visualized sinuses are clear and the globes are intact. IMPRESSION: Redemonstration of mild diffuse age-related cerebral atrophy and mild nonspecific white m atter changes presumed on the basis of product of chronic small vessel ischemic change. No significan t change from prior MRI.
== END ==
LOC: RADMRIMAIN 14:26
PROVIDERS: ATTEND Psychiatry & Neurology Pain Medicine
DX: G31.1 Senile degeneration of brain, not elsewhere classified (principal); R90.89 Other abnormal findings on diagnostic imaging of central nervous system; Z88.1 Allergy status to other antibiotic agents
CPT/HCPCS: 70553; A9585

== ENCOUNTER → 2020-07-31 | Outpatient (CLI) | payer MEDICARE, OTHER ==
--- NOTE | 2020-08-04 08:15 | MM ---
Reason for exam: screening (asymptomatic). Last mammogram was performed 1 year and 2 months ago. History: Patient is postmenopausal. Took hormonal contraceptives for 7 years. Physical Findings: A clinical breast exam by your physician is recommended on an annual basis and results should be correlated with mammographic findings. MG 3D Screening Mammo W/Cad Bilateral CC, MLO, and XCCL view(s) were taken. Prior study comparison: May 30, 2019, bilateral MG 3d screening mammo w/cad. February 16, 2018, bilateral MG 3d screening mammo w/cad. There are scattered fibroglandular densities. There is no discrete abnormality. ASSESSMENT: Negative, BI-RAD 1 RECOMMENDATION: Routine screening mammogram of both breasts in 1 year.
== END | disposition home or self-care (01) ==
LOC: RADMAMWWP 12:24
PROVIDERS: ATTEND Family Medicine
DX: Z12.31 Encounter for screening mammogram for malignant neoplasm of breast (principal)
CPT/HCPCS: 77063; 77067

== ENCOUNTER → 2021-12-09 | Outpatient (CLI) | payer MEDICARE, OTHER ==
--- NOTE | 2021-12-09 10:19 | CT ---
EXAMINATION TYPE: CT neck chest w con DATE OF EXAM: 12/09/2021 9:19 AM COMPARISON: CT dated 07/13/2013 HISTORY: cough, hoarseness CT DLP: 767.9 mGycm Automated exposure control for dose reduction was used. CONTRAST: CT scan of the neck is performed following with IV Contrast, patient injected with 100 mL of Isovue 3 00. Axial images are obtained, coronal and sagittal reformatted images are reviewed. FINDINGS: Neck: Asymmetrical soft tissue fullness is seen between the proximal portions of the left internal and exte rnal carotid arteries posteriorly measuring 7 x 10 mm, not well appreciated previously and not seen o n the right side. This could represent a prominent hypertrophic muscle however underlying lesion diane ot be excluded. Unremarkable nasopharynx, oropharynx, hypopharynx and larynx. Symmetrical unremarkable parotid and elaine bmandibular salivary glands. Unremarkable thyroid gland. Scattered arterial atherosclerotic calcifica tions. Patent major neck vessels. No pathologically enlarged lymph nodes in the neck. Degenerative changes at the atlantoodontoid artic ulation as well as at C4-5, C5-6 and C6-7 levels. No aggressive bone lesion. Unremarkable visualized portion of the brain and orbits. CHEST: Minimal bilateral basal linear pulmonary atelectasis and subpleural reticulations. Minimal right uppe r lobe centrilobular emphysematous changes. Unremarkable lungs otherwise. Patent central airways. No pleural or pericardial effusion. No gross cardiomegaly. Scattered arterial atherosclerotic calcificat ions. The right pulmonary artery measures 3.2 cm which may suggest pulmonary hypertension. No pathologicall y enlarged lymph nodes in the chest. Previous cholecystectomy. Small bowel intussusception is seen in the left upper abdominal quadrant, possibly representing benign transient intussusception, please co rrelate clinically. Degenerative changes of the thoracic spine. IMPRESSION: 1. The described soft tissue fullness between the proximal portions of the left internal and external carotid arteries is nonspecific and could represent a hypertrophic muscle however underlying soft ti ssue lesion can't be excluded. Recommend further PET scan assessment. 2. No other suspicious lesion or lymphadenopathy seen in the neck or the chest. Incidental findings a s described above.
== END | disposition home or self-care (01) ==
LOC: RADCTMAIN 08:22
PROVIDERS: ATTEND Otolaryngology
DX: R49.0 Dysphonia (principal); R05.9 Cough, unspecified
CPT/HCPCS: 70491; 71260; Q9967

== ENCOUNTER → 2022-01-01 | Outpatient (CLI) | payer MEDICARE, OTHER ==
--- NOTE | 2022-01-02 11:51 | PE ---
EXAMINATION TYPE: PET CT fusion skull to thigh DATE OF EXAM: 01/01/2022 COMPARISON: CT neck and chest December 09, 2021. HISTORY: Unknown primary. Abnormal findings on diagnostic imaging. TECHNIQUE: Following the intravenous administration of 8.98 mCi of F-18 FDG, whole body images are p erformed from the skull base to the midthigh. Images are reviewed on the computer in the coronal, ax ial, and sagittal planes. Reconstructed rotating images are created on independent workstation and r eviewed on the computer. A localization and attenuation correction CT is performed in conjunction w ith the PET scan. Dedicated PET/CT imaging of the neck is performed. Blood glucose level equals 91. SCAN: Initial Scan FINDINGS: SKULL BASE AND NECK: No suspicious hypermetabolic uptake with particular attention to the area of shankar bcentimeter soft tissue fullness between left internal/external carotid artery shortly after the cherry tid bulb. CHEST, MEDIASTINUM, AND HILAR REGION: Persistent slightly prominent 9 x 7 mm lower left axillary lymp h node axial image 93 with mild hypermetabolic uptake. 2 views less than 2.5. No additional areas of abnormal hypermetabolic uptake.. ABDOMEN AND PELVIS: Normal excretion. Mild nonspecific bowel uptake appears slightly more prominent m oderate gastric uptake at site of persistent moderate concentric wall thickening. No additional areas of abnormal hypermetabolic uptake. OSSEOUS STRUCTURES: No additional areas of abnormal hypermetabolic uptake. OTHER CT: Prominent pulmonary arteries suggesting underlying pulmonary artery hypertension redemonstr ated. Cholecystectomy clips are redemonstrated. Moderate calcified plaque in the distal abdominal aorta. Shankar spect small calcified fibroid right aspect of the uterus axilla image 207. Small scattered inferior p elvic phleboliths. A few diverticula in the sigmoid colon are present. Facet arthropathy lower lumbar levels. IMPRESSION: No suspicious hypermetabolic uptake to suggest malignancy.
== END | disposition home or self-care (01) ==
LOC: RADPETMAIN 13:09
PROVIDERS: ATTEND Otolaryngology
DX: C80.1 Malignant (primary) neoplasm, unspecified (principal); R93.0 Abnormal findings on diagnostic imaging of skull and head, not elsewhere classified
CPT/HCPCS: 78815; A9552

== ENCOUNTER → 2022-01-27 | Outpatient (CLI) | payer MEDICARE, OTHER ==
--- NOTE | 2022-01-28 12:39 | MM ---
Reason for exam: screening (asymptomatic). Last mammogram was performed 1 year and 6 months ago. History: Patient is postmenopausal. Took hormonal contraceptives for 7 years. Physical Findings: A clinical breast exam by your physician is recommended on an annual basis and results should be correlated with mammographic findings. MG 3D Screening Mammo W/Cad Bilateral CC and MLO view(s) were taken. Prior study comparison: July 31, 2020, bilateral MG 3d screening mammo w/cad. May 30, 2019, bilateral MG 3d screening mammo w/cad. There are scattered fibroglandular densities. There is no discrete abnormality. ASSESSMENT: Negative, BI-RAD 1 RECOMMENDATION: Routine screening mammogram of both breasts in 1 year.
== END | disposition home or self-care (01) ==
LOC: RADMAMWWP 10:12
PROVIDERS: ATTEND Family Medicine
DX: Z12.31 Encounter for screening mammogram for malignant neoplasm of breast (principal); Z78.0 Asymptomatic menopausal state
CPT/HCPCS: 77063; 77067

== ENCOUNTER 2023-03-27 08:56 | Inpatient (IN) | payer MEDICARE, OTHER ==
[2023-03-27] MEDS ORDERED: methylPREDNISolone SOD SUCCI 125 MG/2 ML VIAL IV STA (09:17)
[2023-03-27] MEDS ORDERED: IPRATROPIUM-ALBUTEROL 3 ML NEB INHALATION STA (09:17)
[2023-03-27] MEDS ORDERED: FAMOTIDINE 20 MG/2 ML VIAL IV STA (09:18)
[2023-03-27] MEDS ORDERED: ONDANSETRON 4 MG/2 ML VIAL IVP STA (09:18)
--- NOTE | 2023-03-27 09:23 | ED ---
General Adult HPI - General Chief complaint: Shortness of Breath Stated complaint: JOVAN, nausea Time Seen by Provider: 03/27/23 09:12 Source: patient, RN notes reviewed Mode of arrival: wheelchair Limitations: no limitations - History of Present Illness Initial comments: Patient is a pleasant 62-year-old female presenting to the emergency Department with cough and dyspnea. Onset of symptoms was over a week ago. Patient has subjective fevers and chills. Patient has myalgias. Patient is nonproductive cough. Patient does have history of similar cough and dyspnea associated with COPD. No leg pain or leg swelling. No chest pain. Patient does have some nausea and decreased appetite - Related Data Home Medications Medication Instructions Recorded Confirmed ALPRAZolam [Xanax] 0.5 mg PO HS PRN 08/17/17 08/22/17 Latanoprost Ophth [Xalatan 0.005%] 1 drop BOTH EYES HS 08/17/17 08/22/17 Levothyroxine Sodium [Synthroid] 12.5 mcg PO DAILY 08/17/17 08/22/17 Montelukast [Singulair] 10 mg PO HS 08/17/17 08/22/17 Omeprazole 20 mg PO DAILY 08/17/17 08/22/17 Sertraline HCl [Zoloft] 50 mg PO DAILY 08/17/17 08/22/17 Verapamil HCl [Verapamil ER] 120 mg PO DAILY 08/17/17 08/22/17 Ibuprofen [Motrin] 400 mg PO Q6HR PRN 08/22/17 08/22/17 Previous Rx's Medication Instructions Recorded Albuterol Sulfate [Proair Hfa] 1 - 2 puff INHALATION Q4HR PRN #1 01/11/16 inhaler Aspirin EC [Ecotrin] 325 mg PO DAILY #1 tablet. 08/22/17 Amoxicillin/Potassium Clav 1 tab PO Q12HR #20 tab 03/13/18 [Augmentin 875-125 Tablet] predniSONE [Deltasone] 20 mg PO BID #10 tab 03/13/18 Promethazine [Phenergan] 25 mg PO Q6HR PRN #12 tablet 07/09/18 Allergies Allergy/AdvReac Type Severity Reaction Status Date / Time bacitracin Allergy Rash/Hives Verified 03/27/23 09:09 bacitracin zinc Allergy Rash/Hives Verified 03/27/23 09:09 [From Neosporin ([id number])] ketorolac [From Toradol] Allergy Swelling Verified 03/13/18 06:50 neomycin sulfate Allergy Rash/Hives Verified 03/27/23 09:09 [From Neosporin ([id number])] polymyxin B Allergy Rash/Hives Verified 03/27/23 09:09 [From Neosporin ([id number])] Review of Systems ROS Statement: Those systems with pertinent positive or pertinent negative responses have been documented in the HPI. ROS Other: All systems not noted in ROS Statement are negative. Constitutional: Reports: as per HPI Eyes: Denies: eye pain ENT: Denies: ear pain Respiratory: Reports: as per HPI, cough, dyspnea Cardiovascular: Denies: chest pain Endocrine: Reports: fatigue Gastrointestinal: Reports: nausea. Denies: abdominal pain, vomiting Genitourinary: Denies: urgency Musculoskeletal: Denies: back pain Skin: Denies: rash Neurological: Denies: weakness Past Medical History Past Medical History: Asthma, GERD/Reflux Additional Past Medical History / Comment(s): hiatel hernia, glaucoma History of Any Multi-Drug Resistant Organisms: None Reported Past Surgical History: Cholecystectomy Additional Past Surgical History / Comment(s): carpal tunnel, sinus surgery, heart ablasion Past Psychological History: No Psychological Hx Reported Smoking Status: Current every day smoker Past Alcohol Use History: None Reported Past Drug Use History: Marijuana General Exam Limitations: no limitations General appearance: alert, in no apparent distress Head exam: Present: normocephalic Eye exam: Present: normal appearance Neck exam: Present: normal inspection Respiratory exam: Present: wheezes, decreased breath sounds Cardiovascular Exam: Present: regular rate, normal rhythm GI/Abdominal exam: Present: soft. Absent: tenderness Extremities exam: Present: normal inspection. Absent: pedal edema, calf tenderness Neurological exam: Present: alert Psychiatric exam: Present: normal affect, normal mood Skin exam: Present: normal color Course Vital Signs 03/27/23 03/27/23 03/27/23 09:05 10:07 10:12 Temperature 98.1 F Pulse Rate 99 78 79 Respiratory 20 18 18 Rate Blood Pressure 125/77 O2 Sat by Pulse 93 L Oximetry 03/27/23 03/27/23 03/27/23 10:23 10:41 11:18 Temperature 98 F Pulse Rate 86 84 Respiratory 20 18 18 Rate Blood Pressure 130/62 116/65 O2 Sat by Pulse 91 L 96 96 Oximetry EKG Findings - EKG Results: EKG: interpreted by ERMD, sinus rhythm, normal axis, normal QRS, normal ST/T Medical Decision Making - Medical Decision Making Was pt. sent in by a medical professional or institution (, [facility], [facility]PR[facility], urgent care, hospital, or [facility]...) When possible be specific @ -No Did you speak to anyone other than the patient for history (EMS, parent, family, police, friend...)? What history was obtained from this source @ -No Did you review nursing and triage notes (agree or disagree)? Why? @ -I reviewed and agree with nursing and triage notes Were old charts reviewed (outside hosp., previous admission, EMS record, old EKG, old radiological studies, urgent care reports/EKG's, [facility] records)? Report findings @ -No old charts were reviewed Differential Diagnosis (chest pain, altered mental status, abdominal pain women, abdominal pain men, vaginal bleeding, weakness, fever, dyspnea, syncope, headache, dizziness, GI bleed, back pain, seizure, CVA, palpatations, mental health)? @ -Differential Dyspnea: Coronary syndrome, arrhythmia, tamponade, asthma, COPD, pulmonary embolism, pneumonia, pneumothorax, pulmonary effusion, anaphylaxis, diabetic ketoacidosis, flailed chest, pulmonary contusion, diaphragmatic rupture, anemia, neuromuscular, this is not meant to be an all-inclusive list. EKG interpreted by me (3pts min.). @ -As above X-rays interpreted by me (1pt min.). @ -Is x-ray shows no acute process CT interpreted by me (1pt min.). @ -None done U/S interpreted by me (1pt. min.). @ -None done What testing was considered but not performed or refused? (CT, X-rays, U/S, labs)? Why? @ -None What meds were considered but not given or refused? Why? @ -None Did you discuss the management of the patient with other professionals (professionals i.e. MALICK Hunter, [facility], lab, RT, psych nurse, group social worker, account administrator, teacher, driver license reviewing officer, returned case inspector)? Give summary @ -Case was discussed with Dr. sheet, who will admit covering Dr. Sheets. Was smoking cessation discussed for >3mins.? @ -No Was critical care preformed (if so, how long)? @ -No Were there social determinants of health that impacted care today? How? (Homelessness, low income, unemployed, alcoholism, drug addiction, transportation, low edu. Level, literacy, decrease access to med. care, prison, rehab)? @ -No Was there de-escalation of care discussed even if they declined (Discuss DNR or withdrawal of care, Hospice)? DNR status @ -No What co-morbidities impacted this encounter? (DM, HTN, Smoking, COPD, CAD, Ca ncer, CVA, ARF, Chemo, Hep., AIDS, mental health diagnosis, sleep apnea, morbid obesity)? @ -None Was patient admitted / discharged? Hospital course, mention meds given and route, prescriptions, significant lab abnormalities, going to OR and other pertinent info. @ -Patient reevaluated and still has short of breath. Patient is somewhat imp roved however is not want another treatment at this time. Patient updated on results and plan. Patient will be admitted with pulmonary consult. Undiagnosed new problem with uncertain prognosis? @ -No Drug Therapy requiring intensive monitoring for toxicity (Heparin, Nitro, Insulin, Cardizem)? @ -No Were any procedures done? @ -No Diagnosis/symptom? @ -COPD Acute, or Chronic, or Acute on Chronic? @ -Acute Uncomplicated (without systemic symptoms) or Complicated (systemic symptoms)? @ -default Side effects of treatment? @ -No Exacerbation, Progression, or Severe Exacerbation? @ -No Poses a threat to life or bodily function? How? (Chest pain, [place], [place], pneumonia, PE, COPD, DKA, ARF, appy, cholecystitis, CVA, Diverticulitis, Homicidal, Suicidal, threat to staff... and all critical care pts) @ -No - Lab Data Result diagrams: 03/27/23 09:34 03/27/23 09:34 Lab Results 03/27/23 03/27/23 03/27/23 Range/Units 09:34 09:34 09:34 WBC 14.3 H (3.8-10.6) k/uL RBC 4.56 (3.80-5.40) m/uL Hgb 12.8 (11.4-16.0) gm/dL Hct 38.9 (34.0-46.0) % MCV 85.2 (80.0-100.0) fL MCH 28.1 (25.0-35.0) pg MCHC 33.0 (31.0-37.0) g/dL RDW 15.9 H (11.5-15.5) % Plt Count 310 (150-450) k/uL MPV 7.8 Neutrophils % 87 % Lymphocytes % 8 % Monocytes % 4 % Eosinophils % 0 % Basophils % 0 % Neutrophils # 12.4 H (1.3-7.7) k/uL Lymphocytes # 1.2 (1.0-4.8) k/uL Monocytes # 0.6 (0-1.0) k/uL Eosinophils # 0.0 (0-0.7) k/uL Basophils # 0.0 (0-0.2) k/uL PT 11.3 (9.0-12.0) sec INR 1.1 (<1.2) APTT 25.4 (22.0-30.0) sec Sodium 136 L (137-145) mmol/L Potassium 3.6 (3.5-5.1) mmol/L Chloride 104 (98-107) mmol/L Carbon Dioxide 24 (22-30) mmol/L Anion Gap 8 mmol/L BUN 9 (7-17) mg/dL Creatinine 0.63 (0.52-1.04) mg/dL Est GFR (CKD-EPI)AfAm >90 (>60 ml/min/1.73 sqM) Est GFR (CKD-EPI)NonAf >90 (>60 ml/min/1.73 sqM) Glucose 102 H (74-99) mg/dL Plasma Lactic Acid Shaheed (0.7-2.0) mmol/L Calcium 8.8 (8.4-10.2) mg/dL Total Bilirubin 0.9 (0.2-1.3) mg/dL AST 26 (14-36) U/L ALT 19 (4-34) U/L Alkaline Phosphatase 80 (38-126) U/L Total Protein 6.2 L (6.3-8.2) g/dL Albumin 3.6 (3.5-5.0) g/dL Influenza Type A (PCR) (Not Detectd) Influenza Type B (PCR) (Not Detectd) RSV (PCR) (Not Detectd) SARS-CoV-2 (PCR) (Not Detectd) 03/27/23 03/27/23 Range/Units 09:34 09:39 WBC (3.8-10.6) k/uL RBC (3.80-5.40) m/uL Hgb (11.4-16.0) gm/dL Hct (34.0-46.0) % MCV (80.0-100.0) fL MCH (25.0-35.0) pg MCHC (31.0-37.0) g/dL RDW (11.5-15.5) % Plt Count (150-450) k/uL MPV Neutrophils % % Lymphocytes % % Monocytes % % Eosinophils % % Basophils % % Neutrophils # (1.3-7.7) k/uL Lymphocytes # (1.0-4.8) k/uL Monocytes # (0-1.0) k/uL Eosinophils # (0-0.7) k/uL Basophils # (0-0.2) k/uL PT (9.0-12.0) sec INR (<1.2) APTT (22.0-30.0) sec Sodium (137-145) mmol/L Potassium (3.5-5.1) mmol/L Chloride (98-107) mmol/L Carbon Dioxide (22-30) mmol/L Anion Gap mmol/L BUN (7-17) mg/dL Creatinine (0.52-1.04) mg/dL Est GFR (CKD-EPI)AfAm (>60 ml/min/1.73 sqM) Est GFR (CKD-EPI)NonAf (>60 ml/min/1.73 sqM) Glucose (74-99) mg/dL Plasma Lactic Acid Shaheed 1.0 (0.7-2.0) mmol/L Calcium (8.4-10.2) mg/dL Total Bilirubin (0.2-1.3) mg/dL AST (14-36) U/L ALT (4-34) U/L Alkaline Phosphatase (38-126) U/L Total Protein (6.3-8.2) g/dL Albumin (3.5-5.0) g/dL Influenza Type A (PCR) Not Detected (Not Detectd) Influenza Type B (PCR) Not Detected (Not Detectd) RSV (PCR) Not Detected (Not Detectd) SARS-CoV-2 (PCR) Not Detected (Not Detectd) Disposition Clinical Impression: Acute exacerbation of chronic obstructive pulmonary disease Disposition: ADMITTED IP TO THIS HOSP Is patient prescribed a controlled substance at d/c from ED?: No Referrals: Tarah Clark MD [Primary Care Provider] - 1-2 days Time of Disposition: 11:23
[2023-03-27 09:54] LABS: Basophils % (A) 0 %; Eosinophils % (A) 0 %; HCT 38.9 % (34.0-46.0); HGB 12.8 gm/dL (11.4-16.0); Lymphocytes # (A) 1.2 k/uL (1.0-4.8); Lymphocytes % (A) 8 %; MCH 28.1 pg (25.0-35.0); MCV 85.2 fL (80.0-100.0); Mean Platelet Volume 7.8; Monocytes # (A) 0.6 k/uL (0-1.0); Monocytes % (A) 4 %; Neutrophils # (A) 12.4 k/uL (1.3-7.7); Neutrophils % (A) 87 %; Platelet Count 310 k/uL (150-450); RBC 4.56 m/uL (3.80-5.40); RDW 15.9 % (11.5-15.5); WBC 14.3 k/uL (3.8-10.6)
[2023-03-27 10:03] LABS: INR 1.1 (<1.2); Partial Thromboplastin Time 25.4 sec (22.0-30.0); Prothrombin Time 11.3 sec (9.0-12.0)
[2023-03-27 10:07] LABS: ALT 19 U/L (4-34); AST 26 U/L (14-36); African American GFR (CKD) >90 (>60 ml/min/1.73 sqM); Albumin 3.6 g/dL (3.5-5.0); Alkaline Phosphatase 80 U/L (38-126); Anion Gap 8 mmol/L; Blood Urea Nitrogen 9 mg/dL (7-17); Calcium 8.8 mg/dL (8.4-10.2); Carbon Dioxide 24 mmol/L (22-30); Chloride 104 mmol/L (98-107); Glucose 102 mg/dL (74-99); Non-African American GFR(CKD) >90 (>60 ml/min/1.73 sqM); Potassium 3.6 mmol/L (3.5-5.1); Sodium 136 mmol/L (137-145); Total Bilirubin 0.9 mg/dL (0.2-1.3); Total Protein 6.2 g/dL (6.3-8.2)
--- NOTE | 2023-03-27 10:10 | XR ---
EXAMINATION TYPE: XR chest 2V DATE OF EXAM: 03/27/2023 COMPARISON: 01/11/2016 HISTORY: Shortness of breath TECHNIQUE: Frontal and lateral views of the chest are obtained. FINDINGS: Scattered senescent parenchymal changes noted. Hyperinflation compatible with COPD. No evidence for infiltrate. No evidence for atelectasis. Heart size is stable. Mediastinal structures are stable and grossly unremarkable. No evidence for hilar prominence. Degenerative changes dorsal spine. IMPRESSION: 1. No evidence for acute pulmonary disease.
[2023-03-27] MEDS ORDERED: ACETAMINOPHEN TAB 500 MG TAB PO STA (10:28)
[2023-03-27] MEDS ORDERED: NALOXONE 0.4 MG/ML 1 ML VIAL IVP PRN (11:24)
[2023-03-27] MEDS ORDERED: ONDANSETRON 4 MG/2 ML VIAL IVP PRN (11:24)
[2023-03-27] MEDS ORDERED: IPRATROPIUM-ALBUTEROL 3 ML NEB INHALATION PRN (11:24)
[2023-03-27] MEDS: IPRATROPIUM-ALBUTEROL 3 ML NEB INHALATION SCH ×3 (12:13→20:37)
[2023-03-27] MEDS: AZITHROMYCIN 500 MG TAB PO SCH (12:26)
[2023-03-27] MEDS: methylPREDNISolone SOD SUCCI 125 MG/2 ML VIAL IV SCH ×3 (12:27→23:21)
[2023-03-27] MEDS ORDERED: DEXTROSE 50% SYRINGE 50 ML IVP PRN ×2 (13:10)
--- NOTE | 2023-03-27 13:40 | P.HPIM ---
History of Present Illness This is a pleasant 62 years old female with multiple medical problems including COPD, asthma and GERD. Past because of dyspnea and coughing 10 days pt had diarrhea which is just stoped about three days ago, currently patient has good appetite no more GI stress or urinary symptoms. She has mild headache about 2/10. She drinks 10-12 cigarettes per day and she wants to quit but she declines nicotine patch no alcohol or illicit drugs Vital signs stable and afebrile Showed mild leukocytosis 14.3 rest of CBC, INR, BMP, liver enzymes are unremarkable Influenza A and type B, RSV, SARS (coronavirus) are and detected Chest x-ray: No acute process, COPD changes EKG showing normal sinus rhythm at [address] changes Review of Systems Review of systems CONSTITUTIONAL: No fever, no malaise, no fatigue. HEENT: No recent visual problems or hearing problems. Denied any sore throat. CARDIOVASCULAR: No orthopnea, PND, no palpitations, no syncope. PULMONARY: No chest wall tenderness, no hemoptysis. GASTROINTESTINAL: No diarrhea, no nausea, no vomiting, no abdominal pain. Normoactive bowel sounds. NEUROLOGICAL: No headaches, no weakness, no numbness. HEMATOLOGICAL: Denies any bleeding or petechiae. GENITOURINARY: Denies any burning micturition, frequency, or urgency. MUSCULOSKELETAL/RHEUMATOLOGICAL: Denies any joint pain, swelling, or any muscle pain. ENDOCRINE: Denies any polyuria or polydipsia. Chest wall tenderness Past Medical History Past Medical History: Asthma, GERD/Reflux Additional Past Medical History / Comment(s): hiatel hernia, glaucoma History of Any Multi-Drug Resistant Organisms: None Reported Past Surgical History: Cholecystectomy Additional Past Surgical History / Comment(s): carpal tunnel, sinus surgery, heart ablasion Past Psychological History: No Psychological Hx Reported Smoking Status: Current every day smoker Past Alcohol Use History: None Reported Past Drug Use History: Marijuana Medications and Allergies Home Medications Medication Instructions Recorded Confirmed Type Levothyroxine Sodium [Synthroid] 25 mcg PO DAILY 08/17/17 03/27/23 History Montelukast [Singulair] 10 mg PO HS 08/17/17 03/27/23 History Omeprazole 20 mg PO DAILY 08/17/17 03/27/23 History Verapamil HCl [Verapamil ER] 120 mg PO DAILY 08/17/17 03/27/23 History Albuterol Sulfate [Proair Hfa] 2 puff INHALATION RT-Q4H PRN 03/27/23 03/27/23 History Amoxicillin/Potassium Clav 1 tab PO DIRECTED 03/27/23 03/27/23 History [Augmentin 875-125 Tablet] Atorvastatin [Lipitor] 20 mg PO HS 03/27/23 03/27/23 History Cyclobenzaprine [Flexeril] 10 mg PO HS 03/27/23 03/27/23 History DULoxetine HCL [Cymbalta] 60 mg PO HS 03/27/23 03/27/23 History Gabapentin [Neurontin] 100 mg PO HS 03/27/23 03/27/23 History predniSONE [Deltasone] 20 mg PO DIRECTED 03/27/23 03/27/23 History Allergies Allergy/AdvReac Type Severity Reaction Status Date / Time bacitracin Allergy Rash/Hives Verified 03/27/23 12:03 bacitracin zinc Allergy Rash/Hives Verified 03/27/23 12:03 [From Neosporin ([id number])] ketorolac [From Toradol] Allergy Swelling Verified 03/27/23 12:03 neomycin sulfate Allergy Rash/Hives Verified 03/27/23 12:03 [From Neosporin ([id number])] polymyxin B Allergy Rash/Hives Verified 03/27/23 12:03 [From Neosporin ([id number])] Physical Exam Vitals: Vital Signs Temp Pulse Resp BP Pulse Ox 03/27/23 12:14 76 18 122/61 95 03/27/23 11:18 84 18 116/65 96 03/27/23 10:41 18 96 03/27/23 10:23 98 F 86 20 130/62 91 L 03/27/23 10:12 79 18 03/27/23 10:07 78 18 03/27/23 09:05 98.1 F 99 20 125/77 93 L Intake and Output 03/26/23 03/27/23 03/27/23 22:59 06:59 14:59 Other: Weight 71.214 kg GENERAL: The patient is alert and oriented x3, not in any acute distress. Well developed, well nourished. HEENT: Pupils are round and equally reacting to light. EOMI. No scleral icterus. No conjunctival pallor. Normocephalic, atraumatic. No pharyngeal erythema. No thyromegaly. CARDIOVASCULAR: S1 and S2 present. No murmurs, rubs, or gallops. -PULMONARY: Chest is clear to auscultation, bilateral expiratory wheezing , no crackles. ABDOMEN: Soft, nontender, nondistended, normoactive bowel sounds. No palpable organomegaly. MUSCULOSKELETAL: No joint swelling or deformity. EXTREMITIES: No cyanosis, clubbing, or pedal edema. NEUROLOGICAL: Gross neurological examination did not reveal any focal deficits. SKIN: No rashes. no petechiae. Results CBC & Chem 7: 03/27/23 09:34 03/27/23 09:34 Labs: Abnormal Lab Results - Last 24 Hours (Table) 03/27/23 03/27/23 Range/Units 09:34 09:34 WBC 14.3 H (3.8-10.6) k/uL RDW 15.9 H (11.5-15.5) % Neutrophils # 12.4 H (1.3-7.7) k/uL Sodium 136 L (137-145) mmol/L Glucose 102 H (74-99) mg/dL Total Protein 6.2 L (6.3-8.2) g/dL Assessment and Plan Assessment: Acute COPD/asthma exacerbation History of GERD nicotine dependance Plan: Solu-Medrol 60 mg intravenously Bronchodilator Breathing treatment Pulmonary consult Labs and medication were reviewed.. Continue same treatment. Continue with symptomatic treatment. Resume home medication. Monitor labs and vitals. DVT and GI prophylaxis. Further recommendations as per clinical course of the patient DVT prophylaxis: Subcutaneous heparin GI Prophylaxis: Pepcid Prognosis is guarded
[2023-03-27 17:24] LABS: Glucose,Whole Blood 160 mg/dL (70-110)
[2023-03-27] MEDS: INSULIN ASPART (NovoLOG) 100 UNIT/ML VIAL SQ SCH ×2 (18:04→20:43)
[2023-03-27 20:09] LABS: Glucose,Whole Blood 198 mg/dL (70-110)
[2023-03-27] MEDS: CYCLOBENZAPRINE 10 MG TAB PO SCH (20:43)
[2023-03-27] MEDS: ATORVASTATIN 20 MG TAB PO SCH (20:43)
[2023-03-27] MEDS: GABAPENTIN 100 MG CAP PO SCH (20:43)
[2023-03-27] MEDS: MONTELUKAST 10 MG TAB PO SCH (20:43)
[2023-03-27] MEDS: FAMOTIDINE 20 MG TAB PO SCH (20:43)
[2023-03-27] MEDS: DULoxetine HCL 60 MG CAPSULE.DR PO SCH (20:43)
[2023-03-27] MEDS: HEPARIN SODIUM,PORCINE/PF 5,000 UNIT/0.5 ML SYRINGE SQ SCH (20:44)
[2023-03-27] MEDS ORDERED: FAMOTIDINE 20 MG/2 ML VIAL IV SCH (21:00)
--- NOTE | 2023-03-28 00:49 | P.CNPUL ---
History of Present Illness Consult date: 03/28/23 Requesting physician: Zeferino Castellanos Reason for consult: COPD Chief complaint: Shortness of breath History of present illness: I am seeing this patient in new consultation today 03/28/2023 for a COPD exacerbation. Patient is a 62-year-old female with past medical history significant for mild to moderate COPD, chronic nicotine dependence, left axillary lymphadenopathy, hiatal hernia, GERD, hypothyroidism. Patient does follow in the office with Dr. Breen for management of her COPD. She utilizes a when necessary Ventolin inhaler. She continues to smoke tobacco, approximately one half pack per day. Patient presented to the emergency room yesterday morning complaining of shortness of breath for the last 10 days. She's also had associated nonproductive cough and chest tightness. She admits to subjective fevers and chills. Denies any significant sputum production, hemoptysis. Denies sick contacts. Denies chest pain, heart palpitations, lightheadedness, syncope, orthopnea, lower extremity swelling. She did reach out to her primary care provider, Dr. Myers, who had prescribed her antibiotics and steroids; however, she never picked up these medications from the pharmacy. Patient is currently sitting up in bed, on 2 L nasal cannula, in no acute distress. Chest x-ray on arrival shows no acute infiltrates or evidence of pneumonia. CBC on arrival shows some mild leukocytosis with a WBC count of 14.3, hemoglobin 12.8, hematocrit 38.9, platelets 310. BMP on arrival was unremarkable. Patient was negative for influenza, RSV, COVID-19. Patient was started empirically on az ithromycin. She is afebrile. Patient is admitted to the general medical floor. Review of Systems REVIEW OF SYSTEMS: CONSTITUTIONAL: Denies any recent significant weight loss or weight gain. EYES: Denies change in vision. EARS, NOSE, MOUTH, THROAT: Denies headaches, denies sore throat. CARDIOVASCULAR: See HPI RESPIRATORY: see HPI GASTROINTESTINAL: Admits nausea and some diarrhea which stopped approximately 3 years ago. No abdominal pain or reduced appetite. GENITOURINARY: Denies hematuria, denies infections. MUSKULOSKELETAL: Denies pain, denies swelling. INTEGUMENTARY: Denies rash, denies eczema. NEUROLOGICAL: Denies recent memory loss, no recent seizure activity. PSYCHIATRIC: Denies anxiety, denies depression. HEMATOLOGIC/LYMPHATIC: Denies anemia, denies enlarged lymph node Past Medical History Past Medical History: Asthma, COPD, GERD/Reflux Additional Past Medical History / Comment(s): hiatel hernia, glaucoma History of Any Multi-Drug Resistant Organisms: None Reported Past Surgical History: Cholecystectomy Additional Past Surgical History / Comment(s): carpal tunnel, sinus surgery, heart ablasion Past Anesthesia/Blood Transfusion Reactions: No Reported Reaction Past Psychological History: Anxiety Smoking Status: Current every day smoker Past Alcohol Use History: None Reported Past Drug Use History: Marijuana Additional Drug Use History / Comment(s): daily marijuana smoker - Past Family History Mother Family Medical History: Diabetes Mellitus, Hypertension Medications and Allergies Home Medications Medication Instructions Recorded Confirmed Type Levothyroxine Sodium [Synthroid] 25 mcg PO DAILY 08/17/17 03/27/23 History Montelukast [Singulair] 10 mg PO HS 08/17/17 03/27/23 History Omeprazole 20 mg PO DAILY 08/17/17 03/27/23 History Verapamil HCl [Verapamil ER] 120 mg PO DAILY 08/17/17 03/27/23 History Albuterol Sulfate [Proair Hfa] 2 puff INHALATION RT-Q4H PRN 03/27/23 03/27/23 History Amoxicillin/Potassium Clav 1 tab PO DIRECTED 03/27/23 03/27/23 History [Augmentin 875-125 Tablet] Atorvastatin [Lipitor] 20 mg PO HS 03/27/23 03/27/23 History Cyclobenzaprine [Flexeril] 10 mg PO HS 03/27/23 03/27/23 History DULoxetine HCL [Cymbalta] 60 mg PO HS 03/27/23 03/27/23 History Gabapentin [Neurontin] 100 mg PO HS 03/27/23 03/27/23 History predniSONE [Deltasone] 20 mg PO DIRECTED 03/27/23 03/27/23 History Allergies Allergy/AdvReac Type Severity Reaction Status Date / Time bacitracin Allergy Rash/Hives Verified 03/27/23 12:03 bacitracin zinc Allergy Rash/Hives Verified 03/27/23 12:03 [From Neosporin ([id number])] ketorolac [From Toradol] Allergy Swelling Verified 03/27/23 12:03 neomycin sulfate Allergy Rash/Hives Verified 03/27/23 12:03 [From Neosporin ([id number])] polymyxin B Allergy Rash/Hives Verified 03/27/23 12:03 [From Neosporin ([id number])] Physical Exam Vitals: Vital Signs Temp Pulse Pulse Resp BP BP Pulse Ox 03/27/23 20:50 20 03/27/23 20:49 100 03/27/23 20:39 98 03/27/23 19:01 98.3 F 98 20 113/69 94 L 03/27/23 15:51 74 16 03/27/23 15:41 75 16 03/27/23 14:45 97.6 F 89 18 117/70 92 L 03/27/23 14:19 80 18 102/55 96 03/27/23 12:14 76 18 122/61 95 03/27/23 11:18 84 18 116/65 96 03/27/23 10:41 18 96 03/27/23 10:23 98 F 86 20 130/62 91 L 03/27/23 10:12 79 18 03/27/23 10:07 78 18 03/27/23 09:05 98.1 F 99 20 125/77 93 L Intake and Output 03/27/23 03/27/23 03/28/23 14:59 22:59 06:59 Other: # Voids 1 Weight 71.214 kg GENERAL EXAM: Alert, 62-year-old white female , comfortable in no apparent distress. HEAD: Normocephalic and atraumatic EYES: Normal reaction of pupils, equal size. NOSE: Clear with pink turbinates. THROAT: No erythema or exudates. NECK: No masses, no JVD. CHEST: No chest wall deformity. LUNGS: Equal air entry with expiratory wheezes and rhonchi. Bronchospastic. On 2 L nasal cannula. No conversational dyspnea or accessory muscle use.. CVS: S1 and S2 normal with a soft systolic ejection murmur grade 1, regular rhythm. No other extra heart sounds ABDOMEN: No hepatosplenomegaly, active bowel sounds, no guarding or rigidity. SPINE: No scoliosis or deformity SKIN: No rashes CENTRAL NERVOUS SYSTEM: No focal deficits, tone is normal in all 4 extremities. EXTREMITIES: There is no peripheral edema, clubbing, or cyanosis. Peripheral pulses are intact. Results - Laboratory Findings CBC and BMP: 03/27/23 09:34 03/27/23 09:34 PT/INR, D-dimer PT 11.3 sec (9.0-12.0) 03/27/23 09:34 INR 1.1 (<1.2) 03/27/23 09:34 Abnormal lab findings: Abnormal Labs 03/27/23 03/27/23 03/27/23 09:34 09:34 17:22 WBC 14.3 H RDW 15.9 H Neutrophils # 12.4 H Sodium 136 L Glucose 102 H POC Glucose (mg/dL) 160 H Total Protein 6.2 L 03/27/23 20:07 WBC RDW Neutrophils # Sodium Glucose POC Glucose (mg/dL) 198 H Total Protein - Diagnostic Findings Chest x-ray: image reviewed Assessment and Plan Assessment: Acute COPD exacerbation. Chest x-ray on arrival shows no focal consolidation or evidence of pneumonia. Negative for influenza, RSV, COVID-19. Leukocytosis Hiatal hernia GERD without esophagitis Hypothyroidism History of left axillary lymphadenopathy, being followed up outpatient. Chronic nicotine dependence, continues to smoke one half pack per day Plan: Patient's medications, labs, chest x-ray reviewed Continue supplemental oxygen to maintain oxygen saturation 92% or greater Continue empiric azithromycin Check procalcitonin level Start the patient on a combination of bronchodilators, Symbicort inhaler, IV Solu-Medrol Smoking cessation education performed Nicotine replacement offered We will continue to follow I have personally seen and examined the patient, performed the documentation and the assessment and plan as written. Number of minutes spent on the visit:20 Time with Patient: Greater than 30
[2023-03-28] MEDS: methylPREDNISolone SOD SUCCI 125 MG/2 ML VIAL IV SCH ×4 (05:22→23:37)
[2023-03-28 07:19] LABS: Glucose,Whole Blood 146 mg/dL (70-110)
[2023-03-28] MEDS: LEVOTHYROXINE 25 MCG TAB PO SCH (08:30)
[2023-03-28] MEDS: AZITHROMYCIN 500 MG TAB PO SCH (08:30)
[2023-03-28] MEDS: HEPARIN SODIUM,PORCINE/PF 5,000 UNIT/0.5 ML SYRINGE SQ SCH ×2 (08:30→20:57)
[2023-03-28] MEDS: FAMOTIDINE 20 MG TAB PO SCH ×2 (08:30→20:56)
[2023-03-28] MEDS: INSULIN ASPART (NovoLOG) 100 UNIT/ML VIAL SQ SCH ×4 (08:36→20:57)
[2023-03-28] MEDS: NICOTINE 14MG/24HR PATCH TRANSDERM SCH (08:37)
[2023-03-28] MEDS: IPRATROPIUM-ALBUTEROL 3 ML NEB INHALATION SCH ×4 (10:00→21:03)
[2023-03-28] MEDS: SYMBICORT 160-4.5 MCG INHALER INHALATION SCH ×2 (10:00→21:03)
[2023-03-28] MEDS: VERAPAMIL SR 120 MG TABLET.ER PO SCH (11:40)
[2023-03-28] MEDS: ACETAMINOPHEN TAB 325 MG TAB PO PRN ×2 (11:41→23:38)
[2023-03-28 11:53] LABS: Glucose,Whole Blood 121 mg/dL (70-110)
[2023-03-28 17:10] LABS: Glucose,Whole Blood 178 mg/dL (70-110)
[2023-03-28 20:18] LABS: Glucose,Whole Blood 206 mg/dL (70-110)
--- NOTE | 2023-03-28 20:29 | P.PN ---
Subjective This is a pleasant 62 years old female with multiple medical problems including COPD, asthma and GERD. Past because of dyspnea and coughing 10 days pt had diarrhea which is just stoped about three days ago, currently patient has good appetite no more GI stress or urinary symptoms. She has mild headache about 2/10. She drinks 10-12 cigarettes per day and she wants to quit but she declines nicotine patch no alcohol or illicit drugs Vital signs stable and afebrile Showed mild leukocytosis 14.3 rest of CBC, INR, BMP, liver enzymes are unremark able Influenza A and type B, RSV, SARS (coronavirus) are and detected Chest x-ray: No acute process, COPD changes EKG showing normal sinus rhythm at [address] T changes 03/28/2023 Patient still shortness of breath She still has wheezing Continuous to the neutral Continue with Zithromax as part of COPD exacerbation. No evidence of pneumonia. Objective - Vital Signs Vital signs: Vital Signs Temp 99.0 F 03/28/23 07:19 Pulse 84 03/28/23 07:19 Resp 18 03/28/23 07:19 BP 124/71 03/28/23 07:19 Pulse Ox 92 L 03/28/23 07:19 FiO2 Intake & Output 03/27/23 03/28/23 03/28/23 18:59 06:59 18:59 Weight 71.214 kg Other: # Voids 1 2 - Exam GENERAL: The patient is alert and oriented x3, not in any acute distress. Well developed, well nourished. HEENT: Pupils are round and equally reacting to light. EOMI. No scleral icterus. No conjunctival pallor. Normocephalic, atraumatic. No pharyngeal erythema. No thyromegaly. CARDIOVASCULAR: S1 and S2 present. No murmurs, rubs, or gallops. -PULMONARY: Chest is clear to auscultation, bilateral expiratory wheezing . no crackles. ABDOMEN: Soft, nontender, nondistended, normoactive bowel sounds. No palpable organomegaly. MUSCULOSKELETAL: No joint swelling or deformity. EXTREMITIES: No cyanosis, clubbing, or pedal edema. NEUROLOGICAL: Gross neurological examination did not reveal any focal deficits. SKIN: No rashes. no petechiae. - Labs CBC & Chem 7: 03/27/23 09:34 03/27/23 09:34 Labs: Abnormal Lab Results - Last 24 Hours (Table) 03/27/23 03/27/23 03/28/23 Range/Units 17:22 20:07 07:17 POC Glucose (mg/dL) 160 H 198 H 146 H (70-110) mg/dL Assessment and Plan Assessment: Acute COPD/asthma exacerbation History of GERD nicotine dependance Plan: Solu-Medrol 60 mg intravenously Bronchodilator Breathing treatment Pulmonary consult Labs and medication were reviewed.. Continue same treatment. Continue with sym ptomatic treatment. Resume home medication. Monitor labs and vitals. DVT and GI prophylaxis. Further recommendations as per clinical course of the patient DVT prophylaxis: Subcutaneous heparin GI Prophylaxis: Pepcid Prognosis is guarded
[2023-03-28] MEDS: MONTELUKAST 10 MG TAB PO SCH (20:56)
[2023-03-28] MEDS: ATORVASTATIN 20 MG TAB PO SCH (20:56)
[2023-03-28] MEDS: GABAPENTIN 100 MG CAP PO SCH (20:56)
[2023-03-28] MEDS: CYCLOBENZAPRINE 10 MG TAB PO SCH (20:56)
[2023-03-28] MEDS: DULoxetine HCL 60 MG CAPSULE.DR PO SCH (20:56)
[2023-03-29] MEDS: methylPREDNISolone SOD SUCCI 125 MG/2 ML VIAL IV SCH ×4 (05:33→23:16)
[2023-03-29 07:55] LABS: Glucose,Whole Blood 126 mg/dL (70-110)
[2023-03-29] MEDS: SYMBICORT 160-4.5 MCG INHALER INHALATION SCH ×2 (07:56→21:28)
[2023-03-29] MEDS: IPRATROPIUM-ALBUTEROL 3 ML NEB INHALATION SCH ×4 (07:56→21:28)
[2023-03-29] MEDS: AZITHROMYCIN 500 MG TAB PO SCH (08:51)
[2023-03-29] MEDS: VERAPAMIL SR 120 MG TABLET.ER PO SCH (08:51)
[2023-03-29] MEDS: LEVOTHYROXINE 25 MCG TAB PO SCH (08:51)
[2023-03-29] MEDS: FAMOTIDINE 20 MG TAB PO SCH ×2 (08:51→21:57)
[2023-03-29] MEDS: HEPARIN SODIUM,PORCINE/PF 5,000 UNIT/0.5 ML SYRINGE SQ SCH ×2 (08:52→21:56)
[2023-03-29] MEDS: NICOTINE 14MG/24HR PATCH TRANSDERM SCH (08:52)
[2023-03-29] MEDS: INSULIN ASPART (NovoLOG) 100 UNIT/ML VIAL SQ SCH ×4 (08:52→21:20)
[2023-03-29] MEDS: ACETAMINOPHEN TAB 325 MG TAB PO PRN (08:54)
[2023-03-29 12:02] LABS: Glucose,Whole Blood 132 mg/dL (70-110)
--- NOTE | 2023-03-29 12:16 | P.PN ---
Subjective Progress Note Date: 03/29/23 I am seeing this patient in new consultation today 03/28/2023 for a COPD exacerbation. Patient is a 62-year-old female with past medical history significant for mild to moderate COPD, chronic nicotine dependence, left axillary lymphadenopathy, hiatal hernia, GERD, hypothyroidism. Patient does follow in the office with Dr. Breen for management of her COPD. She utilizes a when necessary Ventolin inhaler. She continues to smoke tobacco, approximately one half pack per day. Patient presented to the emergency room yesterday morning complaining of shortness of breath for the last 10 days. She's also had associated nonproductive cough and chest tightness. She admits to subjective fevers and chills. Denies any significant sputum production, hemoptysis. Denies sick contacts. Denies chest pain, heart palpitations, lightheadedness, syncope, orthopnea, lower extremity swelling. She did reach out to her primary care provider, Dr. Myers, who had prescribed her antibiotics and steroids; however, she never picked up these medications from the pharmacy. Patient is currently sitting up in bed, on 2 L nasal cannula, in no acute distress. Chest x-ray on arrival shows no acute infiltrates or evidence of pneumonia. CBC on arrival shows some mild leukocytosis with a WBC count of 14.3, hemoglobin 12.8, hematocrit 38.9, platelets 310. BMP on arrival was unremarkable. Patient was negative for influenza, RSV, COVID-19. Patient was started empirically on azithromycin. She is afebrile. Patient is admitted to the general medical floor. The patient is seen today 03/29/2023 in follow-up on the regular medical floor. She is currently sitting up at the bedside. Awake and alert in no acute distress. She states she is doing a bit better but did have a rough night. She continues to have a lot of cough and congestion. She continues to maintain good O2 saturations in the 90s on room air. She's been afebrile. Hemodynamically stable. Blood glucose 126. She is continued on DuoNeb inhalations, Symbicort, IV Solu-Medrol and Singulair. NicoDerm patch in place. Heparin for DVT proph ylaxis. Objective - Vital Signs Vital signs: Vital Signs Temp 98.5 F 03/29/23 11:25 Pulse 66 03/29/23 11:25 Resp 16 03/29/23 11:25 BP 133/68 03/29/23 11:25 Pulse Ox 97 03/29/23 11:25 FiO2 Intake & Output 03/28/23 03/29/23 03/29/23 18:59 06:59 18:59 Intake Total 120 Balance 120 Intake: Oral 120 Other: Voiding Method Toilet # Voids 3 2 - Exam GENERAL EXAM: Alert, pleasant 62-year-old female, on room air, fairly comfortable in no apparent distress. HEAD: Normocephalic. EYES: Normal reaction of pupils, equal size. NOSE: Clear with pink turbinates. THROAT: No erythema or exudates. NECK: No masses, no JVD. CHEST: No chest wall deformity. LUNGS: Equal air entry with bilateral end expiratory wheeze, diminished. CVS: S1 and S2 normal with no audible murmur, regular rhythm. ABDOMEN: No hepatosplenomegaly, normal bowel sounds, no guarding or rigidity. SPINE: No scoliosis or deformity SKIN: No rashes CENTRAL NERVOUS SYSTEM: No focal deficits, tone is normal in all 4 extremities. EXTREMITIES: There is no peripheral edema. No clubbing, no cyanosis. Peripheral pulses are intact. - Labs CBC & Chem 7: 03/27/23 09:34 03/27/23 09:34 Labs: Abnormal Lab Results - Last 24 Hours (Table) 03/28/23 03/28/23 03/29/23 Range/Units 17:09 20:18 07:52 POC Glucose (mg/dL) 178 H 206 H 126 H (70-110) mg/dL 03/29/23 Range/Units 12:00 POC Glucose (mg/dL) 132 H (70-110) mg/dL Assessment and Plan Assessment: Acute COPD exacerbation. Chest x-ray on arrival shows no focal consolidation or evidence of pneumonia. Pro-calcitonin 0.08. Negative for influenza, RSV, COVID- 19. Leukocytosis Hiatal hernia GERD without esophagitis Hypothyroidism History of left axillary lymphadenopathy, being followed up outpatient. Chronic nicotine dependence, continues to smoke one half pack per day Plan: The patient was seen and evaluated Medications are reviewed Not quite back to her baseline Continue the current treatment plan Educated regarding the importance of complete smoking cessation NicoDerm patch in place We will continue to follow I have personally seen and examined the patient, performed the documentation and the assessment and plan as written. Number of minutes spent on the visit: 10.
[2023-03-29 17:17] LABS: Glucose,Whole Blood 154 mg/dL (70-110)
[2023-03-29 20:12] LABS: Glucose,Whole Blood 121 mg/dL (70-110)
--- NOTE | 2023-03-29 21:33 | P.PN ---
Subjective This is a pleasant 62 years old female with multiple medical problems including COPD, asthma and GERD. Past because of dyspnea and coughing 10 days pt had diarrhea which is just stoped about three days ago, currently patient has good appetite no more GI stress or urinary symptoms. She has mild headache about 2/10. She drinks 10-12 cigarettes per day and she wants to quit but she declines nicotine patch no alcohol or illicit drugs Vital signs stable and afebrile Showed mild leukocytosis 14.3 rest of CBC, INR, BMP, liver enzymes are unremark able Influenza A and type B, RSV, SARS (coronavirus) are and detected Chest x-ray: No acute process, COPD changes EKG showing normal sinus rhythm at [address] T changes 03/28/2023 Patient still shortness of breath She still has wheezing Continuous to the neutral Continue with Zithromax as part of COPD exacerbation. No evidence of pneumonia. 03/29/2023 patient continued to improve and she looks better today however she is not completely resolved Continue with Solu-Medrol and the bronchodilator Anticipated discharge in 24-48 hours Objective - Vital Signs Vital signs: Vital Signs Temp 98.5 F 03/29/23 11:25 Pulse 66 03/29/23 11:25 Resp 16 03/29/23 11:25 BP 133/68 03/29/23 11:25 Pulse Ox 97 03/29/23 11:25 FiO2 Intake & Output 03/28/23 03/29/23 03/29/23 18:59 06:59 18:59 Intake Total 120 Balance 120 Intake: Oral 120 Other: Voiding Method Toilet # Voids 3 2 - Exam GENERAL: The patient is alert and oriented x3, not in any acute distress. Well developed, well nourished. HEENT: Pupils are round and equally reacting to light. EOMI. No scleral icterus. No conjunctival pallor. Normocephalic, atraumatic. No pharyngeal erythema. No thyromegaly. CARDIOVASCULAR: S1 and S2 present. No murmurs, rubs, or gallops. -PULMONARY: Chest is clear to auscultation, bilateral expiratory wheezing . no crackles. ABDOMEN: Soft, nontender, nondistended, normoactive bowel sounds. No palpable organomegaly. MUSCULOSKELETAL: No joint swelling or deformity. EXTREMITIES: No cyanosis, clubbing, or pedal edema. NEUROLOGICAL: Gross neurological examination did not reveal any focal deficits. SKIN: No rashes. no petechiae. - Labs CBC & Chem 7: 03/27/23 09:34 03/27/23 09:34 Labs: Abnormal Lab Results - Last 24 Hours (Table) 03/28/23 03/28/23 03/29/23 Range/Units 17:09 20:18 07:52 POC Glucose (mg/dL) 178 H 206 H 126 H (70-110) mg/dL 03/29/23 Range/Units 12:00 POC Glucose (mg/dL) 132 H (70-110) mg/dL Assessment and Plan Assessment: Acute COPD/asthma exacerbation History of GERD nicotine dependance Plan: Solu-Medrol 60 mg intravenously Bronchodilator Breathing treatment Pulmonary consult Labs and medication were reviewed.. Continue same treatment. Continue with symptomatic treatment. Resume home medication. Monitor labs and vitals. DVT and GI prophylaxis. Further recommendations as per clinical course of the patient DVT prophylaxis: Subcutaneous heparin GI Prophylaxis: Pepcid Prognosis is guarded
[2023-03-29] MEDS: CYCLOBENZAPRINE 10 MG TAB PO SCH (21:57)
[2023-03-29] MEDS: DULoxetine HCL 60 MG CAPSULE.DR PO SCH (21:57)
[2023-03-29] MEDS: GABAPENTIN 100 MG CAP PO SCH (21:57)
[2023-03-29] MEDS: ATORVASTATIN 20 MG TAB PO SCH (21:57)
[2023-03-29] MEDS: MONTELUKAST 10 MG TAB PO SCH (21:57)
[2023-03-30] MEDS: methylPREDNISolone SOD SUCCI 125 MG/2 ML VIAL IV SCH ×2 (05:20→12:41)
[2023-03-30] MEDS: ACETAMINOPHEN TAB 325 MG TAB PO PRN (05:24)
[2023-03-30 07:25] LABS: Glucose,Whole Blood 117 mg/dL (70-110)
[2023-03-30] MEDS: INSULIN ASPART (NovoLOG) 100 UNIT/ML VIAL SQ SCH ×2 (07:49→12:41)
[2023-03-30 08:08] VITALS: BP 136/73; RESP 16; TEMP 98.2
[2023-03-30] MEDS: SYMBICORT 160-4.5 MCG INHALER INHALATION SCH (08:55)
[2023-03-30] MEDS: IPRATROPIUM-ALBUTEROL 3 ML NEB INHALATION SCH ×2 (08:55→11:43)
[2023-03-30] MEDS: HEPARIN SODIUM,PORCINE/PF 5,000 UNIT/0.5 ML SYRINGE SQ SCH (08:58)
[2023-03-30] MEDS: NICOTINE 14MG/24HR PATCH TRANSDERM SCH (08:58)
[2023-03-30] MEDS: VERAPAMIL SR 120 MG TABLET.ER PO SCH (08:58)
[2023-03-30] MEDS: FAMOTIDINE 20 MG TAB PO SCH (08:59)
[2023-03-30] MEDS: LEVOTHYROXINE 25 MCG TAB PO SCH (08:59)
--- NOTE | 2023-03-30 10:43 | P.PN ---
Subjective Progress Note Date: 03/30/23 I am seeing this patient in new consultation today 03/28/2023 for a COPD exacerbation. Patient is a 62-year-old female with past medical history significant for mild to moderate COPD, chronic nicotine dependence, left axillary lymphadenopathy, hiatal hernia, GERD, hypothyroidism. Patient does follow in the office with Dr. Breen for management of her COPD. She utilizes a when necessary Ventolin inhaler. She continues to smoke tobacco, approximately one half pack per day. Patient presented to the emergency room yesterday morning complaining of shortness of breath for the last 10 days. She's also had associated nonproductive cough and chest tightness. She admits to subjective fevers and chills. Denies any significant sputum production, hemoptysis. Denies sick contacts. Denies chest pain, heart palpitations, lightheadedness, syncope, orthopnea, lower extremity swelling. She did reach out to her primary care provider, Dr. Myers, who had prescribed her antibiotics and steroids; however, she never picked up these medications from the pharmacy. Patient is currently sitting up in bed, on 2 L nasal cannula, in no acute distress. Chest x-ray on arrival shows no acute infiltrates or evidence of pneumonia. CBC on arrival shows some mild leukocytosis with a WBC count of 14.3, hemoglobin 12.8, hematocrit 38.9, platelets 310. BMP on arrival was unremarkable. Patient was negative for influenza, RSV, COVID-19. Patient was started empirically on azithromycin. She is afebrile. Patient is admitted to the general medical floor. The patient is seen today 03/29/2023 in follow-up on the regular medical floor. She is currently sitting up at the bedside. Awake and alert in no acute distress. She states she is doing a bit better but did have a rough night. She continues to have a lot of cough and congestion. She continues to maintain good O2 saturations in the 90s on room air. She's been afebrile. Hemodynamically stable. Blood glucose 126. She is continued on DuoNeb inhalations, Symbicort, IV Solu-Medrol and Singulair. NicoDerm patch in place. Heparin for DVT proph ylaxis. The patient is seen today 03/30/2023 in follow-up on the regular medical floor. She remains awake and alert in no acute distress. Feeling back to her baseline. Maintaining O2 saturation in the low 90s on room air. Afebrile. Hemodynamically stable. Blood glucose 117. She is continued on DuoNeb inhalations, Symbicort, Solu-Medrol and Singulair. NicoDerm patch in place. Heparin for DVT prophylaxis. Objective - Vital Signs Vital signs: Vital Signs Temp 98.2 F 03/30/23 07:24 Pulse 76 03/30/23 09:03 Resp 16 03/30/23 07:24 BP 136/73 03/30/23 07:24 Pulse Ox 92 L 03/30/23 08:56 FiO2 Intake & Output 03/29/23 03/30/23 03/30/23 18:59 06:59 18:59 Other: Voiding Method Toilet Toilet # Voids 1 2 # Bowel Movements 0 - Exam GENERAL EXAM: Alert, 62-year-old female, on room air, comfortable in no apparent distress. HEAD: Normocephalic. EYES: Normal reaction of pupils, equal size. NOSE: Clear with pink turbinates. THROAT: No erythema or exudates. NECK: No masses, no JVD. CHEST: No chest wall deformity. LUNGS: Equal air entry with bilateral end expiratory wheeze, diminished. CVS: S1 and S2 normal with no audible murmur, regular rhythm. ABDOMEN: No hepatosplenomegaly, normal bowel sounds, no guarding or rigidity. SPINE: No scoliosis or deformity SKIN: No rashes CENTRAL NERVOUS SYSTEM: No focal deficits, tone is normal in all 4 extremities. EXTREMITIES: There is no peripheral edema. No clubbing, no cyanosis. Peripheral pulses are intact. - Labs CBC & Chem 7: 03/27/23 09:34 03/27/23 09:34 Labs: Abnormal Lab Results - Last 24 Hours (Table) 03/29/23 03/29/23 03/29/23 Range/Units 12:00 17:15 20:10 POC Glucose (mg/dL) 132 H 154 H 121 H (70-110) mg/dL 03/30/23 Range/Units 07:24 POC Glucose (mg/dL) 117 H (70-110) mg/dL Assessment and Plan Assessment: Acute COPD exacerbation. Chest x-ray on arrival shows no focal consolidation or evidence of pneumonia. Pro-calcitonin 0.08. Negative for influenza, RSV, COVID- 19. Leukocytosis Hiatal hernia GERD without esophagitis Hypothyroidism History of left axillary lymphadenopathy, being followed up outpatient. Chronic nicotine dependence, continues to smoke one half pack per day Plan: The patient was seen and evaluated Medications are reviewed Currently stable and on room air Cleared for discharge from the pulmonary stand Continue Symbicort, albuterol, prednisone taper Again educated regarding the importance of complete smoking cessation NicoDerm patch in place Follow-up in the office in 1 week I have personally seen and examined the patient, performed the documentation and the assessment and plan as written. Number of minutes spent on the visit: 10.
[2023-03-30 11:54] VITALS: PULSE 79
[2023-03-30 12:37] LABS: Glucose,Whole Blood 105 mg/dL (70-110)
--- NOTE | 2023-03-30 22:24 | P.DS ---
Providers Date of admission: 03/27/23 11:24 Attending physician: Jr Watts MD Consults: 03/27/23 11:24 Consult Physician Routine Consulting Provider: Jeannie Arceo Consult Reason/Comments: copd Do you want consulting provider notified?: Yes Primary care physician: Tarah Clark [facility] Course: Diagnoses: Acute COPD/asthma exacerbation History of GERD nicotine dependance Hospital course: This is a pleasant 62 years old female with multiple medical problems including COPD, asthma and GERD. Past because of dyspnea and coughing 10 days Patient found to have acute COPD exacerbation treated with Solu-Medrol and Zithromax with pulmonary service were following the patient closely. Patient showed interval improvement and back to baseline. No new symptoms upon discharge. No need for home oxygen upon discharge Patient was cleared for discharge by pulmonary service Patient will be discharged on tapering steroids prednisone Problems and management plan were discussed with the patient and he verbalized understanding and acceptance Patient was found stable and can be discharged home in guarded prognosis however he needs follow-up as an outpatient. Patient was instructed to follow up with PCP Dr. cho within one week and patient agrees Patient was instructed to follow up with her internal corrosion specialist Dr. Gonzales in 1-2 weeks and she agrees Physical exam Gen: patient is a AAOx3, no distress CVS: S1-S2, RRR, no murmur Lungs: B/L CTA, no wheezing Abdomen: soft, no distention, no tenderness, positive bowel sounds Extremity: no leg edema or induration Time spent more than 35 minutes Plan - Discharge Summary Discharge Rx Participant: Yes New Discharge Prescriptions: New predniSONE 10 mg PO DIRECTED #40 tab Albuterol Inhaler [Ventolin Hfa Inhaler] 1 - 2 puff INHALATION Q6H PRN #1 each PRN Reason: Shortness Of Breath Or Wheezing Continue Omeprazole 20 mg PO DAILY Montelukast [Singulair] 10 mg PO HS Levothyroxine Sodium [Synthroid] 25 mcg PO DAILY Verapamil HCl [Verapamil ER] 120 mg PO DAILY Gabapentin [Neurontin] 100 mg PO HS Atorvastatin [Lipitor] 20 mg PO HS Albuterol Sulfate [Proair Hfa] 2 puff INHALATION RT-Q4H PRN PRN Reason: Shortness Of Breath DULoxetine HCL [Cymbalta] 60 mg PO HS Cyclobenzaprine [Flexeril] 10 mg PO HS Discontinued predniSONE [Deltasone] 20 mg PO DIRECTED Amoxicillin/Potassium Clav [Augmentin 875-125 Tablet] 1 tab PO DIRECTED Discharge Medication List Levothyroxine Sodium [Synthroid] 25 mcg PO DAILY 08/17/17 [History] Montelukast [Singulair] 10 mg PO HS 08/17/17 [History] Omeprazole 20 mg PO DAILY 08/17/17 [History] Verapamil HCl [Verapamil ER] 120 mg PO DAILY 08/17/17 [History] Albuterol Sulfate [Proair Hfa] 2 puff INHALATION RT-Q4H PRN 03/27/23 [History] Atorvastatin [Lipitor] 20 mg PO HS 03/27/23 [History] Cyclobenzaprine [Flexeril] 10 mg PO HS 03/27/23 [History] DULoxetine HCL [Cymbalta] 60 mg PO HS 03/27/23 [History] Gabapentin [Neurontin] 100 mg PO HS 03/27/23 [History] Albuterol Inhaler [Ventolin Hfa Inhaler] 1 - 2 puff INHALATION Q6H PRN #1 each 03/30/23 [Rx] predniSONE 10 mg PO DIRECTED #40 tab 03/30/23 [Rx] Follow up Appointment(s)/Referral(s): Prem Breen MD [STAFF PHYSICIAN] - 04/15/23 2:15 pm Tarah Clark MD [Primary Care Provider] - 04/29/23 9:00 am Patient Instructions/Handouts: Albuterol (By breathing), Prednisone (By mouth), COPD (Chronic Obstructive Pulmonary Disease) (DC) Activity/Diet/Wound Care/Special Instructions: Low carbohydrate diet while he was on steroids Activity is restricted till you see your doctor Discharge Disposition: HOME SELF-CARE
== END 2023-03-30 14:06 | disposition home or self-care (01) | DRG 191 ==
LOC: EC 08:56 → 5NMEDONC 11:24
PROVIDERS: ADMIT Internal Medicine; ATTEND Internal Medicine
DX: J44.1 Chronic obstructive pulmonary disease with (acute) exacerbation (principal); J45.901 Unspecified asthma with (acute) exacerbation; Z20.822 Contact with and (suspected) exposure to COVID-19; R51.9 Headache, unspecified; R59.1 Generalized enlarged lymph nodes; K21.9 Gastro-esophageal reflux disease without esophagitis; F17.210 Nicotine dependence, cigarettes, uncomplicated; K44.9 Diaphragmatic hernia without obstruction or gangrene; E03.9 Hypothyroidism, unspecified; Z71.6 Tobacco abuse counseling; Z79.890 Hormone replacement therapy; Z79.82 Long term (current) use of aspirin; Z90.49 Acquired absence of other specified parts of digestive tract; Z79.899 Other long term (current) drug therapy; Z88.1 Allergy status to other antibiotic agents; Z88.2 Allergy status to sulfonamides; Z88.8 Allergy status to other drugs, medicaments and biological substances
CPT/HCPCS: 36415; 71046; 80053; 83036; 83605; 84145; 85025; 85610; 85730; 87636; 93005; 94640; 94760; 96367; 96374; 96375; 99285

== ENCOUNTER → 2023-09-07 | Outpatient (CLI) | payer MEDICARE, OTHER ==
--- NOTE | 2023-09-07 07:59 | CTL ---
EXAMINATION TYPE: CT Low Dose Lung DATE OF EXAM ORDERED: 09/07/2023 HISTORY: Long-term tobacco use. Lung cancer screening CT DLP: 77.[address] CTDI: 23 mGy Automated exposure control for dose reduction was used. SCREENING VISIT: Baseline COMPARISON: None TECHNIQUE: Low dose computed tomography scan was performed through the chest at 1 mm thick sections a nd reconstructed images in multiple planes at 1 mm and [address] DIAGNOSTIC QUALITY: Satisfactory FINDINGS: LUNG NODULES: Present, detailed below: Some scattered small nodules for reference 3 mm right upper lobe nodule axial image 51. No greater th an 5 mm pulmonary nodules. LUNGS: COPD: Severity: Mild Fibrosis: Severity: Minimal bibasilar Lymph nodes: None Other findings: None RNone PLEURAL SPACE: Nonesion: None CaNoneication: None TNoneening: None Pneumothorax: None None PLEURAL SPACE: Nonesion: None CaNoneication: None TNoneening: None PneumothoraNormale HEART: Heart Size: NNonel Coronary CalcificatioNoneone Pericardial Effusion: None ONone FINDINGS: UppNonebdomen: Cholecystectomy clips. Bony thorax: Mild multilevel spurring. SupracNonecular region: e Other: None IMPRESSION: Tiny upper lung nodules. No greater than 5 mm noncalcified pulmonary nodules CT LUNG RAD D CT CHEST RECOMMENDATION: 2-benign S Modifier (other clin lly significant findings): None
--- NOTE | 2023-09-07 19:30 | BD ---
EXAMINATION TYPE: Axial Bone Density DATE OF EXAM: 09/07/2023 CLINICAL HISTORY: 62 years old Female. ICD-10 CODE: Z78.0 ASYMPTOMATIC MENOPAUSAL Height: 60.3 Weight: 176 FRAX RISK QUESTIONS: Glucocorticoids (More than 3mos): yes, copd meds (Ex: prednisone, prednisolone, methylprednisolone, dexamethasone, and hydrocortisone). History of Fracture in Adulthood: yes Secondary Osteoporosis: yes 3. Menopause before 45: yes Current Tobacco Use: yes RISK FACTORS HISTORY OF: hx of rt foot broken as an adult Postmenopausal woman: yes, early 40s, Lost more than 2 inches in height since high school: yes. 5'2" in highschool. Hyperparathyroidism: no Adrenal Insufficiency: no MEDICATIONS: Prednisone or other steroids: inhaler for copd, ventolin, Thyroid Medications: synthroid for 5 yrs. Additional Medications: bp meds, heart meds, reflux meds, statin for cholesterol, Additional History: hypertension, heart concerns, reflux, cholesterol, copd, thyroid, EXAM MEASUREMENTS: Bone mineral densitometry was performed using the tracx System. Bone mineral density as measured about the Lumbar spine is: ----- L1-L4(G/cm2): 1.150 T Score Values are as follows: ----- L1: -2.0 ----- L2: -1.0 ----- L3: 0.3 ----- L4: 1.4 ----- L1-L4: -0.2 Z Score Values are as follows: ----- L1: -1.2 ----- L2: -0.2 ----- L3: 1.1 ----- L4: 2.2 ----- L1-L4: 0.5 Bone mineral density is her first DEXA scan, baseline study. Bone mineral density about the R hip (g/cm2): 0.958 Bone mineral density about the L hip (g/cm2): 0.962 T Score values are as follows: -----R Neck: -0.1 -----L Neck: -0.6 -----R Total: -0.4 -----L Total: -0.4 Z Score values are as follows: -----R Neck: 0.8 -----L Neck: 0.3 -----R Total: 0.2 -----L Total: 0.2 Bone mineral density is her baseline study today. FRAX%s: The graph provided illustrates a 16.8% chance for a major osteoporotic fx and a 1.4% chance f or the hips probability for fx in 10 years time. IMPRESSION: Normal (Values between +1 and -1 indicate normal bone mass). Consider repeating this study in 5 year s or sooner if there is some new clinical indication. NOTE: T-SCORE=SD OF THE YOUNG ADULT MEAN.
--- NOTE | 2023-09-08 12:32 | MM ---
Reason for Exam: Screening (asymptomatic). Last mammogram was performed 1 year(s) and 8 month(s) ago. Patient History: Menarche at age 15. First Full-Term at age 20. Postmenopausal. Patient used Hormonal Contraceptives for 7 years. Risk Values: Mona 5 year model risk: 1.0%. NCI Lifetime model risk: 5.3%. Prior Study Comparison: 05/30/2019 Bilateral Screening Mammogram, [facility]. 07/31/2020 Bilateral Screening Mammogram, [facility]. 01/27/2022 Bilateral Screening Mammogram, [facility]. Tissue Density: There are scattered fibroglandular densities. Findings: Analyzed By CAD. There is no suspicious group of microcalcifications or new suspicious mass in either breast. Overall Assessment: Negative, BI-RAD 1 Management: Screening Mammogram of both breasts in 1 year. . Patient should continue monthly self-breast exams. A clinical breast exam by your physician is recommended on an annual basis. This exam should not preclude additional follow-up of suspicious palpable abnormalities. Note on Mona scores and lifetime risk: 1. A Mona score greater than 3% is considered moderate risk. If this is the case, consider specialist referral to assess eligibility for a risk reducing agent. 2. If overall lifetime risk for the development of breast cancer is 20% or higher, the patient may qualify for future screening with alternating mammogram and breast MRI. Electronically signed and approved by: Bony Guillen M.D. Radiologis
== END | disposition home or self-care (01) ==
LOC: RADCTMAIN 07:04
PROVIDERS: ATTEND Family Medicine
DX: Z12.2 Encounter for screening for malignant neoplasm of respiratory organs (principal); Z12.31 Encounter for screening mammogram for malignant neoplasm of breast; Z13.820 Encounter for screening for osteoporosis; I10 Essential (primary) hypertension; M85.88 Other specified disorders of bone density and structure, other site; Z87.891 Personal history of nicotine dependence; Z78.0 Asymptomatic menopausal state
CPT/HCPCS: 71271; 77063; 77067; 77080

== ENCOUNTER 2023-10-26 12:06 | Inpatient (IN) | payer MEDICARE, OTHER ==
--- NOTE | 2023-10-26 12:43 | XR ---
EXAMINATION TYPE: XR chest 2V DATE OF EXAM: 10/26/2023 COMPARISON: 03/27/2023 INDICATION: Cough and short of breath TECHNIQUE: Frontal and lateral views of the chest are obtained. FINDINGS: The heart size is normal. The pulmonary vasculature is normal. The lungs are clear. IMPRESSION: 1. No acute pulmonary process.
[2023-10-26 15:44] LABS: Basophils % (A) 0 %; Eosinophils % (A) 1 %; HCT 38.1 % (34.0-46.0); HGB 12.6 gm/dL (11.4-16.0); Hypochromasia Slight; Lymphocytes % (A) 14 %; MCH 27.4 pg (25.0-35.0); Mean Platelet Volume 7.5; Monocytes # (A) 0.2 k/uL (0-1.0); Monocytes % (A) 2 %; Neutrophils # (A) 5.9 k/uL (1.3-7.7); Neutrophils % (A) 82 %; Platelet Count 295 k/uL (150-450); RBC 4.59 m/uL (3.80-5.40); RDW 15.9 % (11.5-15.5); WBC 7.2 k/uL (3.8-10.6)
[2023-10-26 15:55] LABS: ALT 21 U/L (4-34); AST 24 U/L (14-36); African American GFR (CKD) >90 (>60 ml/min/1.73 sqM); Albumin 4.5 g/dL (3.5-5.0); Alkaline Phosphatase 83 U/L (38-126); Anion Gap 10 mmol/L; Blood Urea Nitrogen 16 mg/dL (7-17); Calcium 9.5 mg/dL (8.4-10.2); Carbon Dioxide 23 mmol/L (22-30); Chloride 106 mmol/L (98-107); Glucose 101 mg/dL (74-99); Non-African American GFR(CKD) >90 (>60 ml/min/1.73 sqM); Potassium 4.4 mmol/L (3.5-5.1); Sodium 139 mmol/L (137-145); Total Bilirubin 0.6 mg/dL (0.2-1.3); Total Protein 7.1 g/dL (6.3-8.2)
[2023-10-26 16:03] LABS: INR 0.9 (<1.2); Partial Thromboplastin Time 22.4 sec (22.0-30.0); Prothrombin Time 10.4 sec (10.0-12.5)
[2023-10-26 16:04] LABS: NT-Pro-B-Type Natriuretic Pept 129 pg/mL
[2023-10-26] MEDS: IPRATROPIUM-ALBUTEROL 3 ML NEB INHALATION STA ×2 (16:44→18:36)
[2023-10-26] MEDS: methylPREDNISolone SOD SUCCI 125 MG/2 ML VIAL IV STA (16:52)
[2023-10-26] MEDS: BENZONATATE 100 MG CAP PO STA (18:32)
--- NOTE | 2023-10-26 18:50 | ED ---
General Adult HPI - General Chief complaint: Shortness of Breath Stated complaint: SOB, history of COPD Time Seen by Provider: 10/26/23 13:39 Source: patient, RN notes reviewed Mode of arrival: ambulatory Limitations: no limitations - History of Present Illness Initial comments: 62-year-old female presents to the emergency department for evaluation of w orsening cough and shortness of breath. Patient states that her symptoms have been going on for around 7 days. He states that she was a Z-Deion and Medrol Dosepak with her last doses being yesterday. She states that she feels her shortness of breath has been getting worse. She has been utilizing her breathing treatments at home with minimal relief. She denies recent fever, chills, nausea, vomiting. - Related Data Home Medications Medication Instructions Recorded Confirmed Levothyroxine Sodium [Synthroid] 25 mcg PO DAILY 08/17/17 03/27/23 Montelukast [Singulair] 10 mg PO HS 08/17/17 03/27/23 Omeprazole 20 mg PO DAILY 08/17/17 03/27/23 Verapamil HCl [Verapamil ER] 120 mg PO DAILY 08/17/17 03/27/23 Albuterol Sulfate [Proair Hfa] 2 puff INHALATION RT-Q4H PRN 03/27/23 03/27/23 Atorvastatin [Lipitor] 20 mg PO HS 03/27/23 03/27/23 Cyclobenzaprine [Flexeril] 10 mg PO HS 03/27/23 03/27/23 DULoxetine HCL [Cymbalta] 60 mg PO HS 03/27/23 03/27/23 Gabapentin [Neurontin] 100 mg PO HS 03/27/23 03/27/23 Previous Rx's Medication Instructions Recorded Albuterol Inhaler [Ventolin Hfa 1 - 2 puff INHALATION Q6H PRN #1 03/30/23 Inhaler] each predniSONE 10 mg PO DIRECTED #40 tab 03/30/23 Allergies Allergy/AdvReac Type Severity Reaction Status Date / Time bacitracin Allergy Rash/Hives Verified 10/26/23 12:31 bacitracin zinc Allergy Rash/Hives Verified 10/26/23 12:31 [From Neosporin ([id number])] ketorolac [From Toradol] Allergy Swelling Verified 10/26/23 12:31 neomycin sulfate Allergy Rash/Hives Verified 10/26/23 12:31 [From Neosporin ([id number])] polymyxin B Allergy Rash/Hives Verified 10/26/23 12:31 [From Neosporin ([id number])] Review of Systems ROS Statement: Those systems with pertinent positive or pertinent negative responses have been documented in the HPI. ROS Other: All systems not noted in ROS Statement are negative. Past Medical History Past Medical History: Asthma, COPD, GERD/Reflux Additional Past Medical History / Comment(s): hiatel hernia, glaucoma History of Any Multi-Drug Resistant Organisms: None Reported Past Surgical History: Cholecystectomy Additional Past Surgical History / Comment(s): carpal tunnel, sinus surgery, heart ablasion Past Anesthesia/Blood Transfusion Reactions: No Reported Reaction Past Psychological History: Anxiety Smoking Status: Current every day smoker Past Alcohol Use History: None Reported Past Drug Use History: Marijuana - Past Family History Mother Family Medical History: Diabetes Mellitus, Hypertension General Exam Limitations: no limitations General appearance: alert, in distress (mild respiratory distress) Head exam: Present: atraumatic, normocephalic, normal inspection Eye exam: Present: normal appearance, PERRL, EOMI. Absent: scleral icterus, conjunctival injection, periorbital swelling ENT exam: Present: normal exam, mucous membranes moist Neck exam: Present: normal inspection, full ROM. Absent: tenderness, meningismus, lymphadenopathy Respiratory exam: Present: wheezes. Absent: respiratory distress, rales, rhonchi, stridor Cardiovascular Exam: Present: regular rate, normal rhythm, normal heart sounds. Absent: systolic murmur, diastolic murmur, rubs, gallop, clicks Extremities exam: Present: normal inspection, full ROM, normal capillary refill. Absent: tenderness, pedal edema, joint swelling, calf tenderness Back exam: Present: normal inspection Neurological exam: Present: alert, oriented X3 Psychiatric exam: Present: normal affect, normal mood Skin exam: Present: warm, dry, intact, normal color. Absent: rash Course Vital Signs 10/26/23 10/26/23 10/26/23 12:26 16:37 16:44 Temperature 97.9 F 98.3 F Pulse Rate 94 85 Respiratory 18 22 18 Rate Blood Pressure 149/68 128/83 O2 Sat by Pulse 96 95 Oximetry 10/26/23 10/26/2324 16:47 16:56 18:22 Temperature Pulse Rate 98 92 Respiratory Rate Blood Pressure O2 Sat by Pulse 93 L Oximetry 10/26/23 10/26/23 10/26/23 18:25 18:38 18:49 Temperature 98.1 F Pulse Rate 83 86 94 Respiratory 20 Rate Blood Pressure 146/79 O2 Sat by Pulse 95 Oximetry Medical Decision Making - Medical Decision Making Was pt. sent in by a medical professional or institution (, PA, PRESSROOM WORKER, urgent care, hospital, or halfway...) When possible be specific @ -No Did you speak to anyone other than the patient for history (EMS, parent, family, police, friend...)? What history was obtained from this source @ -No Did you review nursing and triage notes (agree or disagree)? Why? @ -I reviewed and agree with nursing and triage notes Were old charts reviewed (outside hosp., previous admission, EMS record, old EKG, old radiological studies, urgent care reports/EKG's, halfway records)? Report findings @ -No old charts were reviewed Differential Diagnosis (chest pain, altered mental status, abdominal pain women, abdominal pain men, vaginal bleeding, weakness, fever, dyspnea, syncope, headache, dizziness, GI bleed, back pain, seizure, CVA, palpatations, mental health, musculoskeletal)? @ -Differential Dyspnea: Coronary syndrome, arrhythmia, tamponade, asthma, COPD, pulmonary embolism, pneumonia, pneumothorax, pulmonary effusion, anaphylaxis, diabetic ketoacidosis, flailed chest, pulmonary contusion, diaphragmatic rupture, anemia, n euromuscular, this is not meant to be an all-inclusive list. EKG interpreted by me (3pts min.). @ -EKG at 1524 shows sinus rhythm rate 83, FL 136, QRS 94, QTQTc [id number] X-rays interpreted by me (1pt min.). @ -Chest x-ray shows no acute infiltrate CT interpreted by me (1pt min.). @ -None done U/S interpreted by me (1pt. min.). @ -None done What testing was considered but not performed or refused? (CT, X-rays, U/S, labs)? Why? @ -None What meds were considered but not given or refused? Why? @ -None Did you discuss the management of the patient with other professionals (professionals i.e. , MALICK, PRESSROOM WORKER, lab, RT, psych nurse, social insurance adviser, air surveillance operator, teacher, forest fire officer, family service caseworker)? Give summary @ -Management discussed with RT therapy who believes patient will benefit from IV steroids and breathing treatments. Case discussed with Delilah Bob NP with [facility] who is accepting of the admission Was smoking cessation discussed for >3mins.? @ -No Was critical care preformed (if so, how long)? @ -No Were there social determinants of health that impacted care today? How? (Homelessness, low income, unemployed, alcoholism, drug addiction, transportation, low edu. Level, literacy, decrease access to med. care, shelter, rehab)? @ -No Was there de-escalation of care discussed even if they declined (Discuss DNR or withdrawal of care, Hospice)? DNR status @ -No What co-morbidities impacted this encounter? (DM, HTN, Smoking, COPD, CAD, Cancer, CVA, ARF, Chemo, Hep., AIDS, mental health diagnosis, sleep apnea, morbid obesity)? @ -None Was patient admitted / discharged? Hospital course, mention meds given and route, prescriptions, significant lab abnormalities, going to OR and other pertinent info. @ -Admitted. Patient presented to the emergency department for evaluation of worsening shortness of breath and cough x 7 days. She has been on a Medrol Dosepak and a Z-Deion. She states that she did not have any significant improvement with this. Laboratory studies obtained which are essentially unremarkable. Patient did test positive for RSV. Patients O2 stable at rest. O2 dropped to 91% while ambulatory. Based on clinical presentation, patient will be admitted for IV steroids and duo-neb treatments. Patient did receive Solu- Medrol and 2 DuoNeb treatments in the emergency department. Case discussed with Delilah Bob with [facility] who is accepting of the admission. Patient stable at time of admission. Case discussed with Dr. Resendez Undiagnosed new problem with uncertain prognosis? @ -No Drug Therapy requiring intensive monitoring for toxicity (Heparin, Nitro, Insu ryan, Cardizem)? @ -No Were any procedures done? @ -No Diagnosis/symptom? @ -RSV, COPD exacerbation Acute, or Chronic, or Acute on Chronic? @ -acute Uncomplicated (without systemic symptoms) or Complicated (systemic symptoms)? @ -uncomplicated Side effects of treatment? @ -No Exacerbation, Progression, or Severe Exacerbation? @ -No Poses a threat to life or bodily function? How? (Chest pain, USA, MD, pneumonia, PE, COPD, DKA, ARF, appy, cholecystitis, CVA, Diverticulitis, Homicidal, Suicid al, threat to staff... and all critical care pts) @ -No - Lab Data Result diagrams: 10/26/23 15:29 10/26/23 15:29 Lab Results 10/26/23 10/26/23 10/26/23 Range/Units 12:31 15:29 15:29 WBC 7.2 (3.8-10.6) k/uL RBC 4.59 (3.80-5.40) m/uL Hgb 12.6 (11.4-16.0) gm/dL Hct 38.1 (34.0-46.0) % MCV 83.0 (80.0-100.0) fL MCH 27.4 (25.0-35.0) pg MCHC 33.0 (31.0-37.0) g/dL RDW 15.9 H (11.5-15.5) % Plt Count 295 (150-450) k/uL MPV 7.5 Neutrophils % 82 % Lymphocytes % 14 % Monocytes % 2 % Eosinophils % 1 % Basophils % 0 % Neutrophils # 5.9 (1.3-7.7) k/uL Lymphocytes # 1.0 (1.0-4.8) k/uL Monocytes # 0.2 (0-1.0) k/uL Eosinophils # 0.0 (0-0.7) k/uL Basophils # 0.0 (0-0.2) k/uL Hypochromasia Slight PT 10.4 (10.0-12.5) sec INR 0.9 (<1.2) APTT 22.4 (22.0-30.0) sec Sodium (137-145) mmol/L Potassium (3.5-5.1) mmol/L Chloride (98-107) mmol/L Carbon Dioxide (22-30) mmol/L Anion Gap mmol/L BUN (7-17) mg/dL Creatinine (0.52-1.04) mg/dL Est GFR (CKD-EPI)AfAm (>60 ml/min/1.73 sqM) Est GFR (CKD-EPI)NonAf (>60 ml/min/1.73 sqM) Glucose (74-99) mg/dL Plasma Lactic Acid Shaheed (0.7-2.0) mmol/L Calcium (8.4-10.2) mg/dL Total Bilirubin (0.2-1.3) mg/dL AST (14-36) U/L ALT (4-34) U/L Alkaline Phosphatase (38-126) U/L NT-Pro-B Natriuret Pep pg/mL Total Protein (6.3-8.2) g/dL Albumin (3.5-5.0) g/dL Influenza Type A (PCR) Not Detected (Not Detectd) Influenza Type B (PCR) Not Detected (Not Detectd) RSV (PCR) Detected A (Not Detectd) SARS-CoV-2 (PCR) Not Detected (Not Detectd) 10/26/23 10/26/23 Range/Units 15:29 15:29 WBC (3.8-10.6) k/uL RBC (3.80-5.40) m/uL Hgb (11.4-16.0) gm/dL Hct (34.0-46.0) % MCV (80.0-100.0) fL MCH (25.0-35.0) pg MCHC (31.0-37.0) g/dL RDW (11.5-15.5) % Plt Count (150-450) k/uL MPV Neutrophils % % Lymphocytes % % Monocytes % % Eosinophils % % Basophils % % Neutrophils # (1.3-7.7) k/uL Lymphocytes # (1.0-4.8) k/uL Monocytes # (0-1.0) k/uL Eosinophils # (0-0.7) k/uL Basophils # (0-0.2) k/uL Hypochromasia PT (10.0-12.5) sec INR (<1.2) APTT (22.0-30.0) sec Sodium 139 (137-145) mmol/L Potassium 4.4 (3.5-5.1) mmol/L Chloride 106 (98-107) mmol/L Carbon Dioxide 23 (22-30) mmol/L Anion Gap 10 mmol/L BUN 16 (7-17) mg/dL Creatinine 0.71 (0.52-1.04) mg/dL Est GFR (CKD-EPI)AfAm >90 (>60 ml/min/1.73 sqM) Est GFR (CKD-EPI)NonAf >90 (>60 ml/min/1.73 sqM) Glucose 101 H (74-99) mg/dL Plasma Lactic Acid Shaheed 1.0 (0.7-2.0) mmol/L Calcium 9.5 (8.4-10.2) mg/dL Total Bilirubin 0.6 (0.2-1.3) mg/dL AST 24 (14-36) U/L ALT 21 (4-34) U/L Alkaline Phosphatase 83 (38-126) U/L NT-Pro-B Natriuret Pep 129 pg/mL Total Protein 7.1 (6.3-8.2) g/dL Albumin 4.5 (3.5-5.0) g/dL Influenza Type A (PCR) (Not Detectd) Influenza Type B (PCR) (Not Detectd) RSV (PCR) (Not Detectd) SARS-CoV-2 (PCR) (Not Detectd) Disposition Clinical Impression: RSV (acute bronchiolitis due to respiratory syncytial virus), COPD exacerbation Disposition: ADMITTED IP TO THIS HOSP Condition: Stable Instructions (If sedation given, give patient instructions): Respiratory Syncytial Virus (ED) Is patient prescribed a controlled substance at d/c from ED?: No Referrals: Tarah Clark MD [Primary Care Provider] - 1-2 days
[2023-10-26] MEDS ORDERED: NALOXONE 0.4 MG/ML 1 ML VIAL IVP PRN (19:07)
[2023-10-26] MEDS: LORazepam 1 MG TAB PO STA (19:24)
[2023-10-26] MEDS: IPRATROPIUM-ALBUTEROL 3 ML NEB INHALATION SCH (20:04)
[2023-10-26] MEDS: DOXYCYCLINE 100 MG CAP PO SCH (20:17)
[2023-10-26] MEDS: methylPREDNISolone SOD SUCCI 125 MG/2 ML VIAL IV SCH (23:50)
[2023-10-27] MEDS: BENZONATATE 100 MG CAP PO PRN
--- NOTE | 2023-10-27 03:34 | P.CNPUL ---
History of Present Illness Consult date: 10/27/23 Requesting physician: Kinza Cooper Reason for consult: COPD, other (RSV) Chief complaint: Shortness of breath and cough that started last Tuesday History of present illness: I am seeing this patient in consultation today October 27, 2023 in the emergency room after she failed outpatient treatment for COPD exacerbation. Patient is a 62-year-old white female with past medical history significant for COPD, GERD, recent ex-smoker as of April,. Patient is known to have mild COPD, she does follow with Dr. Gonzales in the pulmonary office. Most recent FEV1 80% of predicted. She was recently treated for a COPD exacerbation outpatient last month. Starting last Tuesday the patient started to develop recurrent symptoms of progressively worsening shortness of breath, mostly nonproductive cough with occasional white frothy sputum, chest tightness, and wheezing. Denies fevers, chest pain, hemoptysis. Patient states that she received another round of azithromycin and Medrol Dosepak on Tuesday. Despite taking these medications, her symptoms became severe starting 2 days ago, and she presented the emergency room yesterday afternoon. On arrival, she was found to be positive for RSV. Chest x-ray does not show any acute cardiopulmonary process. No focal infiltrates or evidence of pneumonia. CBC on arrival unremarkable. No leukocytosis. BMP on arrival also unremarkable. She has been started on standard medications for COPD including bronchodilators, Symbicort inhaler, and IV Solu-Medrol. She is currently afebrile. She is resting in bed on 2 L nasal cannula, in no acute distress. She appears nontoxic. Vital signs are stable. Review of Systems REVIEW OF SYSTEMS: CONSTITUTIONAL: Denies any recent significant weight loss or weight gain. Admi ts generalized malaise and fatigue. Denies fevers. EYES: Denies change in vision. EARS, NOSE, MOUTH, THROAT: Denies headaches, denies sore throat. CARDIOVASCULAR: Denies chest pain or syncopal episodes or lower extremity swelling or orthopnea. Admits occasional self-limiting heart palpitations RESPIRATORY: See HPI GASTROINTESTINAL: Denies abdominal pain, nausea and vomiting, or diarrhea. Admits reduced appetite GENITOURINARY: Denies hematuria, denies infections. MUSKULOSKELETAL: Denies pain, denies swelling. INTEGUMENTARY: Denies rash, denies eczema. NEUROLOGICAL: Denies recent memory loss, no recent seizure activity. PSYCHIATRIC: Denies anxiety, denies depression. HEMATOLOGIC/LYMPHATIC: Denies anemia, denies enlarged lymph node Past Medical History Past Medical History: Asthma, COPD, GERD/Reflux Additional Past Medical History / Comment(s): hiatel hernia, glaucoma History of Any Multi-Drug Resistant Organisms: None Reported Past Surgical History: Cholecystectomy Additional Past Surgical History / Comment(s): carpal tunnel, sinus surgery, h eart ablasion Past Anesthesia/Blood Transfusion Reactions: No Reported Reaction Past Psychological History: Anxiety Smoking Status: Current every day smoker Past Alcohol Use History: None Reported Past Drug Use History: Marijuana - Past Family History Mother Family Medical History: Diabetes Mellitus, Hypertension Medications and Allergies Home Medications Medication Instructions Recorded Confirmed Type Montelukast [Singulair] 10 mg PO HS 08/17/17 10/26/23 History Omeprazole 20 mg PO DAILY 08/17/17 10/26/23 History Verapamil HCl [Verapamil ER] 120 mg PO DAILY 08/17/17 10/26/23 History Atorvastatin [Lipitor] 20 mg PO HS 03/27/23 10/26/23 History Cyclobenzaprine [Flexeril] 10 mg PO HS 03/27/23 10/26/23 History DULoxetine HCL [Cymbalta] 60 mg PO HS 03/27/23 10/26/23 History Albuterol Inhaler [Ventolin Hfa 1 - 2 puff INHALATION RT-Q6H PRN 10/26/23 0 10/26/23 History Inhaler] Levothyroxine Sodium [Synthroid] 50 mcg PO [id number]-[id number] 10/26/23 10/26/23 History methylPREDNISolone Dose Pack See Taper PO DIRECTED 10/26/23 10/26/23 History [Medrol Dose Pack] rOPINIRole HCL [Requip] 0.25 mg PO HS 10/26/23 10/26/23 History Allergies Allergy/AdvReac Type Severity Reaction Status Date / Time bacitracin Allergy Rash/Hives Verified 10/26/23 19:38 bacitracin zinc Allergy Rash/Hives Verified 10/26/23 19:38 [From Neosporin ([id number])] ketorolac [From Toradol] Allergy Swelling Verified 10/26/23 19:38 neomycin sulfate Allergy Rash/Hives Verified 10/26/23 19:38 [From Neosporin ([id number])] polymyxin B Allergy Rash/Hives Verified 10/26/23 19:38 [From Neosporin ([id number])] Physical Exam Vitals: Vital Signs Temp Pulse Pulse Resp BP BP Pulse Ox 10/27/23 01:05 98.3 F 95 17 152/81 97 10/26/23 20:23 95 10/26/23 20:18 98.3 F 89 20 162/85 94 L 10/26/23 20:14 90 10/26/23 20:05 89 10/26/23 18:49 94 10/26/23 18:38 86 10/26/23 18:25 98.1 F 83 20 146/79 95 10/26/23 18:22 93 L 10/26/23 16:56 92 10/26/23 16:47 98 10/26/23 16:44 98.3 F 85 18 128/83 95 10/26/23 16:37 22 10/26/23 12:26 97.9 F 94 18 149/68 96 Intake and Output 10/26/23 10/26/23 10/27/23 14:59 22:59 06:59 Other: # Voids 1 Weight 77.111 kg GENERAL EXAM: Alert, 62-year-old white female, comfortable in no apparent distress. HEAD: Normocephalic and atraumatic EYES: Normal reaction of pupils, equal size. NOSE: Clear with pink turbinates. THROAT: No erythema or exudates. NECK: No masses, no JVD. CHEST: No chest wall deformity. LUNGS: Equal air entry with end expiratory wheezes heard throughout. She has a persistent harsh cough that is nonproductive. On 2 L/min nasal cannula. no conversational dyspnea or accessory muscle use while at rest.. CVS: S1 and S2 normal with no audible murmur, regular rhythm. No extra heart sounds ABDOMEN: No hepatosplenomegaly, active bowel sounds, no guarding or rigidity. SPINE: No scoliosis or deformity SKIN: No rashes CENTRAL NERVOUS SYSTEM: No focal deficits, tone is normal in all 4 extremities. EXTREMITIES: There is no peripheral edema, clubbing, or cyanosis. Peripheral pulses are intact. Results - Laboratory Findings CBC and BMP: 10/26/23 15:29 10/26/23 15:29 PT/INR, D-dimer PT 10.4 sec (10.0-12.5) 10/26/23 15:29 INR 0.9 (<1.2) 10/26/23 15:29 Abnormal lab findings: Abnormal Labs 10/26/23 10/26/23 10/26/23 12:31 15:29 15:29 RDW 15.9 H Glucose 101 H RSV (PCR) Detected A - Diagnostic Findings Chest x-ray: image reviewed Assessment and Plan Assessment: Acute COPD exacerbation, secondary to acute bronchitis and RSV infection. Chest x-ray on arrival shows no focal infiltrates or evidence of pneumonia. She is positive for RSV. Negative for influenza and COVID-19. GERD without esophagitis Hypothyroidism History of left axillary lymphadenopathy, being followed up outpatient History of hiatal hernia Recent ex-smoker as of April, Obesity, with a BMI of 31.1 kg/m Plan: Patient's medications, labs, chest x-ray reviewed Continue supplemental oxygen Continue combination of bronchodilators, Symbicort inhaler, and IV Solu-Medrol Patient was started on empiric doxycycline in the emergency room. Continue supportive treatment for RSV infection. She is tolerating oral intake now. Continue as needed Tessalon Perles for persistent cough. We will continue to follow I have personally seen and examined the patient, performed the documentation and the assessment and plan as written. Number of minutes spent on the visit:20 Time with Patient: Greater than 30
[2023-10-27] MEDS: ACETAMINOPHEN TAB 325 MG TAB PO PRN (07:35)
[2023-10-27] MEDS: SYMBICORT 160-4.5 MCG INHALER INHALATION SCH (09:52)
[2023-10-27] MEDS: PANTOPRAZOLE 40 MG TABLET PO SCH (12:41)
[2023-10-27] MEDS: LEVOTHYROXINE 50 MCG TAB PO SCH (12:41)
[2023-10-27] MEDS: VERAPAMIL SR 120 MG TABLET.ER PO SCH (14:51)
[2023-10-27] MEDS: HEPARIN SODIUM,PORCINE 5,000 UNIT/ML 1 ML VIAL SQ SCH (14:52)
[2023-10-27] MEDS: DULoxetine HCL 60 MG CAPSULE.DR PO SCH (20:56)
[2023-10-27] MEDS: MONTELUKAST 10 MG TAB PO SCH (20:56)
[2023-10-27] MEDS: ATORVASTATIN 20 MG TAB PO SCH (20:56)
--- NOTE | 2023-10-28 00:09 | P.HPIM ---
History of Present Illness H&P Date: 10/27/23 Chief Complaint: Shortness of breath Patient is a 62-year-old female with a known history of COPD/asthma, GERD, anxiety, current everyday smoker and occasional marijuana use presents to ER with complaints of worsening shortness of breath for the past 5 days. Patient was recently treated for COPD exacerbation as an outpatient. She has been having progressively worsening shortness of breath and cough with whitish sputum production and chest tightness. Denies any fever or chills. No nausea or vomiting or abdominal pain. Patient was started on antibiotics azithromycin and Medrol Dosepak as an outpatient on Tuesday. Patient started taking her medications getting worse. Presents to ER for further evaluation. In the ER chest x-ray showed no acute cardiopulmonary process. EKG showed sinus rhythm. Laboratory data showed WBC 7.2 hemoglobin 12.6 and platelets 295 BUN 16 creatinine 0.71 [place] episode not elevated. proBNP 129 and patient is tested positive for RSV PCR. Review of Systems Constitutional: Patient denies any fever or chills . Generalized weakness and fatigue. Abdomen: Patient denied any nausea or vomiting or abd. pain Cardiovascular: Patient denies any chest pain positive for short of breath no palpitations. No leg swelling Respiratory: patient complains of cough with whitish sputum production. Does have shortness of breath Neurologic: Patient denied any numbness or tingling or headache. Musculoskeletal: Patient denies any complaints of joint swelling or deformity. Skin: Negative Psychiatric: Negative Endocrine: No heat or cold intolerance. No recent weight gain. Genitourinary: No dysuria or hematuria. All other 14 point ROS negative except the above Past Medical History Past Medical History: Asthma, COPD, GERD/Reflux Additional Past Medical History / Comment(s): hiatel hernia, glaucoma History of Any Multi-Drug Resistant Organisms: None Reported Past Surgical History: Cholecystectomy Additional Past Surgical History / Comment(s): carpal tunnel, sinus surgery, heart ablasion Past Anesthesia/Blood Transfusion Reactions: No Reported Reaction Past Psychological History: Anxiety Smoking Status: Current every day smoker Past Alcohol Use History: None Reported Past Drug Use History: Marijuana - Past Family History Mother Family Medical History: Diabetes Mellitus, Hypertension Medications and Allergies Home Medications Medication Instructions Recorded Confirmed Type RX: Montelukast [Singulair] 10 mg PO HS 08/17/17 10/26/23 History RX: Omeprazole 20 mg PO DAILY 08/17/17 10/26/23 History RX: Verapamil HCl [Verapamil ER] 120 mg PO DAILY 08/17/17 10/26/23 History RX: Atorvastatin [Lipitor] 20 mg PO HS 03/27/23 10/26/23 History RX: Cyclobenzaprine [Flexeril] 10 mg PO HS 03/27/23 10/26/23 History RX: DULoxetine HCL [Cymbalta] 60 mg PO HS 03/27/23 10/26/23 History Levothyroxine Sodium [Synthroid] 50 mcg PO AC-BRKFST 10/26/23 10/26/23 History RX: Albuterol Inhaler [Ventolin 1 - 2 puff INHALATION RT-Q6H PRN 10/26/23 10/26/23 History Hfa Inhaler] methylPREDNISolone Dose Pack See Taper PO DIRECTED 10/26/23 10/26/23 History [Medrol Dose Pack] rOPINIRole HCL [Requip] 0.25 mg PO HS 10/26/23 10/26/23 History Allergies Allergy/AdvReac Type Severity Reaction Status Date / Time bacitracin Allergy Rash/Hives Verified 10/26/23 19:38 bacitracin zinc Allergy Rash/Hives Verified 10/26/23 19:38 [From Neosporin ([id number])] ketorolac [From Toradol] Allergy Swelling Verified 10/26/23 19:38 neomycin sulfate Allergy Rash/Hives Verified 10/26/23 19:38 [From Neosporin ([id number])] polymyxin B Allergy Rash/Hives Verified 10/26/23 19:38 [From Neosporin ([id number])] Physical Exam Vitals: Vital Signs Temp Pulse Pulse Resp BP BP Pulse Ox 10/27/23 12:00 98.1 F 88 20 132/80 94 L 10/27/23 11:48 90 10/27/23 11:40 92 10/27/23 10:25 98.4 F 90 22 153/81 95 10/27/23 08:14 89 10/27/23 08:04 91 10/27/23 07:35 98.7 F 89 17 154/89 95 10/27/23 01:05 98.3 F 95 17 152/81 97 10/26/23 20:23 95 10/26/23 20:18 98.3 F 89 20 162/85 94 L 10/26/23 20:14 90 10/26/23 20:05 89 10/26/23 18:49 94 10/26/23 18:38 86 10/26/23 18:25 98.1 F 83 20 146/79 95 10/26/23 18:22 93 L 10/26/23 16:56 92 10/26/23 16:47 98 10/26/23 16:44 98.3 F 85 18 128/83 95 10/26/23 16:37 22 10/26/23 12:26 97.9 F 94 18 149/68 96 Intake and Output 10/26/23 10/27/23 10/27/23 22:59 06:59 14:59 Other: # Voids 1 1 PHYSICAL EXAMINATION: Patient is lying in the bed comfortably, no acute distress, awake alert and oriented.. HEENT: Normocephalic. Neck is supple. Pupils reactive. Nostrils clear. Oral cavity is moist. Neck reveals no JVD, carotid bruits, or thyromegaly. CHEST EXAMINATION: Trachea is central. Symmetrical expansion. Patient does have bilateral diffuse wheezing, diminished sounds and scattered coarse sounds. Nonlabored breathing.. CARDIAC: Normal S1, S2 with no gallops. No murmurs ABDOMEN: Soft. Bowel sounds present. Nontender. No organomegaly. No abdominal bruits. Extremities: reveal no edema. No clubbing or cyanosis Neurologically awake, alert, oriented x3 with well-coordinated movements. No focal deficits noted Skin: No rash or skin lesions. Psychiatric: Coperative. Nonsuicidal, Musculoskeletal: No joint swelling or deformity. Normal range of motion. Results CBC & Chem 7: 10/26/23 15:29 10/26/23 15:29 Labs: Abnormal Lab Results - Last 24 Hours (Table) 10/26/23 10/26/23 10/26/23 Range/Units 12:31 15:29 15:29 RDW 15.9 H (11.5-15.5) % Glucose 101 H (74-99) mg/dL RSV (PCR) Detected A (Not Detectd) Thrombosis Risk Factor Assmnt - DVT/VTE Prophylaxis DVT/VTE Prophylaxis: Pharmacologic Prophylaxis ordered Assessment and Plan Assessment: Acute COPD exacerbation due to underlying RSV infection. Failed outpatient treatment. Acute RSV infection. Chest x-ray showed no acute process. Severe GERD Nicotine addiction quit in April 2023 History of left axillary lymphadenopathy, follow-up as outpatient Hiatal hernia Obesity with BMI 31.1 GI and DVT prophylaxis with Protonix and heparin subcu Plan: Patient will be continued on IV Solu-Medrol 60 mg every 6 hourly and DuoNebs and Symbicort. Procalcitonin level was ordered. Pulmonary is on board. Start back on home blood pressure medications/verapamil. On doxycycline for possible acute bronchitis. Continue to follow closely. Time with Patient: Greater than 30
[2023-10-28 11:13] LABS: Basophils # (A) 0.01 X 10*3/uL (0.00-0.10); Basophils % (A) 0.1 %; Eosinophils # (A) 0 X 10*3/uL (0.04-0.35); Eosinophils % (A) 0 %; HCT 35.4 % (37.2-46.3); HGB 11.4 g/dL (12.0-15.0); Lymphocytes # (A) 0.76 X 10*3/uL (0.90-5.00); Lymphocytes % (A) 5.2 %; MCH 26.1 pg (27.0-32.0); MCHC 32.2 g/dL (32.0-37.0); Mean Platelet Volume 10.1 FL (9.5-12.2); Monocytes % (A) 2.7 %; NRBC Per 100 WBC 0 X 10*3/uL (0.00-0.01); Neutrophils % (A) 91.2 %; Platelet Count 362 X 10*3/uL (140-440); RBC 4.37 X 10*6/uL (4.10-5.20); RDW 16.1 % (11.5-14.5); WBC 14.58 X 10*3/uL (4.50-10.00)
[2023-10-28 11:33] LABS: BUN/Creat Ratio 28.88 Ratio (12.00-20.00); Blood Urea Nitrogen 23.1 mg/dL (9.0-27.0); Calcium 10.1 mg/dL (8.7-10.3); Carbon Dioxide 23.8 mmol/L (21.6-31.8); Chloride 102 mmol/L (96-109); Glucose 135 mg/dL (70-110); Potassium 4.8 mmol/L (3.5-5.5); Sodium 138 mmol/L (135-145)
[2023-10-28] MEDS ORDERED: SENNOSIDES 8.6 MG TAB PO PRN (11:40)
[2023-10-28] MEDS: LIDOCAINE 4% PATCH TOPICAL SCH (12:48)
--- NOTE | 2023-10-28 13:24 | P.PN ---
Subjective Progress Note Date: 10/28/23 I am seeing this patient in consultation today October 27, 2023 in the emergency room after she failed outpatient treatment for COPD exacerbation. Patient is a 62-year-old white female with past medical history significant for COPD, GERD, recent ex-smoker as of April,. Patient is known to have mild COPD, she does follow with Dr. Gonzales in the pulmonary office. Most recent FEV1 80% of predicted. She was recently treated for a COPD exacerbation outpatient last month. Starting last Tuesday the patient started to develop recurrent symptoms of progressively worsening shortness of breath, mostly nonproductive cough with occasional white frothy sputum, chest tightness, and wheezing. Denies fevers, chest pain, hemoptysis. Patient states that she received another round of azithromycin and Medrol Dosepak on Tuesday. Despite taking these medications, her symptoms became severe starting 2 days ago, and she presented the emergency room yesterday afternoon. On arrival, she was found to be positive for RSV. Chest x-ray does not show any acute cardiopulmonary process. No focal infiltrates or evidence of pneumonia. CBC on arrival unremarkable. No leukocytosis. BMP on arrival also unremarkable. She has been started on standard medications for COPD including bronchodilators, Symbicort inhaler, and IV Solu-Medrol. She is currently afebrile. She is resting in bed on 2 L nasal cannula, in no acute distress. She appears nontoxic. Vital signs are stable. The patient is seen today October 28, 2023 and follow-up on the regular medical floor. She is currently sitting up in bed. Awake and alert in no acute distress. Not much improved today compared to yesterday. Still somewhat b ronchospastic and wheezing. Dyspneic with conversation. Dyspneic with minimal exertion. She is maintaining O2 saturations in the 90s on 3 L/min per nasal cannula. She is afebrile. Hemodynamically stable. She is continued on DuoNeb ventilations, Symbicort, Solu-Medrol. Empiric antibiotics in the form of doxycycline. Procalcitonin was 0.03. She is having some yellow productive sputum. White count 14.5. Hemoglobin 11.4. Sodium 138. Potassium 4.8. Bicarb 24. BUN 23. Creatinine 0.8. Glucose 135. She is positive for RSV. Objective - Vital Signs Vital signs: Vital Signs Temp 98.4 F 10/28/23 07:50 Pulse 90 10/28/23 12:32 Resp 22 10/28/23 09:30 BP 144/82 10/28/23 07:50 Pulse Ox 96 10/28/23 09:14 FiO2 Intake & Output 10/27/23 10/28/23 10/28/23 18:59 06:59 18:59 Intake Total 590 Balance 590 Intake: Oral 590 Other: # Voids 3 - Exam GENERAL EXAM: Alert, pleasant 62-year-old female, on 3 L nasal cannula, fairly comfortable in no apparent distress. HEAD: Normocephalic. EYES: Normal reaction of pupils, equal size. NOSE: Clear with pink turbinates. THROAT: No erythema or exudates. NECK: No masses, no JVD. CHEST: No chest wall deformity. LUNGS: Equal air entry with bilateral end expiratory wheeze, diminished. CVS: S1 and S2 normal with no audible murmur, regular rhythm. ABDOMEN: No hepatosplenomegaly, normal bowel sounds, no guarding or rigidity. SPINE: No scoliosis or deformity SKIN: No rashes CENTRAL NERVOUS SYSTEM: No focal deficits, tone is normal in all 4 extremities. EXTREMITIES: There is no peripheral edema. No clubbing, no cyanosis. Peripheral pulses are intact. - Labs CBC & Chem 7: 10/28/23 07:02 10/28/23 07:02 Labs: Abnormal Lab Results - Last 24 Hours (Table) 10/28/23 10/28/23 Range/Units 07:02 07:02 WBC 14.58 H (4.50-10.00) X 10*3/uL Hgb 11.4 L (12.0-15.0) g/dL Hct 35.4 L (37.2-46.3) % MCH 26.1 L (27.0-32.0) pg RDW 16.1 H (11.5-14.5) % Immature Gran # 0.11 H (0.00-0.04) X 10*3/uL Neutrophils # 13.30 H (1.80-7.70) X 10*3/uL Lymphocytes # 0.76 L (0.90-5.00) X 10*3/uL Eosinophils # 0 L (0.04-0.35) X 10*3/uL Anion Gap 12.20 H (4.00-12.00) mmol/L BUN/Creatinine Ratio 28.88 H (12.00-20.00) Ratio Glucose 135 H (70-110) mg/dL Assessment and Plan Assessment: Acute COPD exacerbation, secondary to acute bronchitis and RSV infection. Chest x-ray on arrival shows no focal infiltrates or evidence of pneumonia. She is positive for RSV. Negative for influenza and COVID-19. GERD without esophagitis Hypothyroidism History of left axillary lymphadenopathy, being followed up outpatient History of hiatal hernia Recent ex-smoker as of April, Obesity, with a BMI of 31.1 kg/m Plan: The patient was seen and evaluated Improved but not back to her baseline Titrate the FiO2 as tolerated Continue the current treatment plan Continue empiric antibiotics Increase her activity as tolerated We will continue to follow I have personally seen and examined the patient, performed the documentation and the assessment and plan as written. Number of minutes spent on the visit: 10.
[2023-10-28] MEDS: KETOROLAC 15 MG/ML 1 ML VIAL IVP PRN (18:57)
--- NOTE | 2023-10-29 02:39 | P.PN ---
Subjective Progress Note Date: 10/28/23 Patient is a 62-year-old female with a known history of COPD/asthma, GERD, anxiety, current everyday smoker and occasional marijuana use presents to ER with complaints of worsening shortness of breath for the past 5 days. Patient was recently treated for COPD exacerbation as an outpatient. She has been having progressively worsening shortness of breath and cough with whitish sputum production and chest tightness. Denies any fever or chills. No nausea or vomiting or abdominal pain. Patient was started on antibiotics azithromycin and Medrol Dosepak as an outpatient on Tuesday. Patient started taking her medications getting worse. Presents to ER for further evaluation. In the ER chest x-ray showed no acute cardiopulmonary process. EKG showed sinus rhythm. Laboratory data showed WBC 7.2 hemoglobin 12.6 and platelets 295 BUN 16 creatinine 0.71 [place] episode not elevated. proBNP 129 and patient is tested positive for RSV PCR. 10/28/2023 Patient is seen in follow-up today with pulmonary following maintained on IV steroids along with breathing treatments and continued supplemental oxygen of 2 to 3 L. Patient does not wear oxygen outpatient. Patient continues to be extremely bronchospastic with significant expiratory wheezing noted on exam. Patient is afebrile and continues to report shortness of breath and frequent coughing spells with exertion. Patient tolerating diet with no reported nausea or vomiting. Patient also having some left-sided rib cage pain likely secondary to the cough and will add lidocaine patches. Encouraged to increase activity as tolerated. Review of systems: Constitutional: No reports of fatigue, fever, or chills Cardiovascular: No reports of chest pain or palpitations, reports chest wall pain from the coughing Respiratory: reports of shortness of breath and continued cough GI: No reports of nausea, vomiting, or diarrhea : No reports of dysuria or retention Neurovascular: No reports of weakness or numbness All medications have been reviewed PHYSICAL EXAMINATION: Patient is a 62-year-old female who is sitting up in the bed, awake alert and oriented x 3, well-developed, well-nourished, obese.. HEENT: Normocephalic. Neck is supple. Pupils reactive. Nostrils clear. Oral cavity is moist. Neck reveals no JVD, carotid bruits, or thyromegaly. CHEST EXAMINATION: Trachea is central. Symmetrical expansion. Patient does have bilateral diffuse expiratory wheezing, diminished sounds and scattered coarse sounds. Nonlabored breathing.. CARDIAC: Normal S1, S2 with no gallops. No murmurs ABDOMEN: Soft. Obese. Bowel sounds present. Nontender. No organomegaly. No abdominal bruits. Extremities: reveal no edema. No clubbing or cyanosis Neurologically awake, alert, oriented x3 with well-coordinated movements. No focal deficits noted Skin: No rash or skin lesions. Psychiatric: Cooperative. Non-suicidal, Musculoskeletal: No joint swelling or deformity. Normal range of motion. Assessment: Acute COPD exacerbation due to underlying RSV infection. Failed outpatient treatment. Acute RSV infection. Chest x-ray showed no acute process. Severe GERD Nicotine addiction quit in April 2023 History of left axillary lymphadenopathy, follow-up as outpatient Hiatal hernia Obesity with BMI 31.1 GI and DVT prophylaxis with Protonix and heparin subcu Plan: Patient will be continued on IV Solu-Medrol 60 mg every 6 hourly and DuoNebs and Symbicort. Procalcitonin level was normal Pulmonary following recommending to continue with steroids and treatments. Patient is wearing 2 to 3 L of oxygen via nasal cannula and recommend to wean FiO2 as tolerated as patient does not wear oxygen outpatient Will add incentive spirometer and encourage at least 10 times every hour while awake Home medications reviewed and resumed On doxycycline for possible acute bronchitis. Encouraged to increase activity as tolerated The impression and plan of care has been dictated by Delilah Bob, Nurse Practitioner as directed. Dr. Clementina MD I have performed a history and examination and MDM of this patient, discussed the same with the dictator, and agree with the dictator's assessment and plan as written ,documented as a scribe. Based on total visit time, I have performed more than 50% of the visit. Objective - Vital Signs Vital signs: Vital Signs Temp 98.4 F 10/28/23 07:50 Pulse 88 10/28/23 09:27 Resp 18 10/28/23 07:50 BP 144/82 10/28/23 07:50 Pulse Ox 96 10/28/23 09:14 FiO2 Intake & Output 10/27/23 10/28/23 10/28/23 18:59 06:59 18:59 Intake Total 590 Balance 590 Intake: Oral 590 Other: # Voids 3 - Labs CBC & Chem 7: 10/28/23 07:02 10/28/23 07:02
--- NOTE | 2023-10-29 12:05 | P.PN ---
Subjective Progress Note Date: 10/29/23 I am seeing this patient in consultation today October 27, 2023 in the emergency room after she failed outpatient treatment for COPD exacerbation. Patient is a 62-year-old white female with past medical history significant for COPD, GERD, recent ex-smoker as of April,. Patient is known to have mild COPD, she does follow with Dr. Gonzales in the pulmonary office. Most recent FEV1 80% of predicted. She was recently treated for a COPD exacerbation outpatient last month. Starting last Tuesday the patient started to develop recurrent symptoms of progressively worsening shortness of breath, mostly nonproductive cough with occasional white frothy sputum, chest tightness, and wheezing. Denies fevers, chest pain, hemoptysis. Patient states that she received another round of azithromycin and Medrol Dosepak on Tuesday. Despite taking these medications, her symptoms became severe starting 2 days ago, and she presented the emergency room yesterday afternoon. On arrival, she was found to be positive for RSV. Chest x-ray does not show any acute cardiopulmonary process. No focal infiltrates or evidence of pneumonia. CBC on arrival unremarkable. No leukocytosis. BMP on arrival also unremarkable. She has been started on standard medications for COPD including bronchodilators, Symbicort inhaler, and IV Solu-Medrol. She is currently afebrile. She is resting in bed on 2 L nasal cannula, in no acute distress. She appears nontoxic. Vital signs are stable. The patient is seen today October 28, 2023 and follow-up on the regular medical floor. She is currently sitting up in bed. Awake and alert in no acute distress. Not much improved today compared to yesterday. Still somewhat b ronchospastic and wheezing. Dyspneic with conversation. Dyspneic with minimal exertion. She is maintaining O2 saturations in the 90s on 3 L/min per nasal cannula. She is afebrile. Hemodynamically stable. She is continued on DuoNeb ventilations, Symbicort, Solu-Medrol. Empiric antibiotics in the form of doxycycline. Procalcitonin was 0.03. She is having some yellow productive sputum. White count 14.5. Hemoglobin 11.4. Sodium 138. Potassium 4.8. Bicarb 24. BUN 23. Creatinine 0.8. Glucose 135. She is positive for RSV. The patient is seen today October 29, 2023 in follow-up on the regular medical floor. She is resting in bed. Awake and alert in no acute distress. She has been slow to progress. Still with some loose congested cough and wheezing. She is maintaining O2 saturations in the 90s on 3 L/min per nasal cannula. No new labs today. She is continued on DuoNeb elations, Symbicort, Solu-Medrol. Heparin for DVT prophylaxis. Empiric antibiotics in the form of Vibramycin. Remains on Tessalon Perles. Objective - Vital Signs Vital signs: Vital Signs Temp 99.1 F 10/29/23 08:00 Pulse 84 10/29/23 08:26 Resp 16 10/29/23 08:00 BP 137/80 10/29/23 08:00 Pulse Ox 95 10/29/23 08:00 FiO2 Intake & Output 10/28/23 10/29/23 10/29/23 18:59 06:59 18:59 Intake Total 236 360 Balance 236 360 Intake: Oral 236 360 Other: # Voids 3 2 - Exam GENERAL EXAM: Alert, 62-year-old female, on 3 L nasal cannula, comfortable in no apparent distress. HEAD: Normocephalic. EYES: Normal reaction of pupils, equal size. NOSE: Clear with pink turbinates. THROAT: No erythema or exudates. NECK: No masses, no JVD. CHEST: No chest wall deformity. LUNGS: Equal air entry with bilateral end expiratory wheeze, diminished. CVS: S1 and S2 normal with no audible murmur, regular rhythm. ABDOMEN: No hepatosplenomegaly, normal bowel sounds, no guarding or rigidity. SPINE: No scoliosis or deformity SKIN: No rashes CENTRAL NERVOUS SYSTEM: No focal deficits, tone is normal in all 4 extremities. EXTREMITIES: There is no peripheral edema. No clubbing, no cyanosis. Peripheral pulses are intact. - Labs CBC & Chem 7: 10/28/23 07:02 10/28/23 07:02 Assessment and Plan Assessment: Acute COPD exacerbation, secondary to acute bronchitis and RSV infection. Chest x-ray on arrival shows no focal infiltrates or evidence of pneumonia. GERD without esophagitis Hypothyroidism History of left axillary lymphadenopathy, being followed up outpatient History of hiatal hernia Recent ex-smoker as of April, Obesity, with a BMI of 31.1 kg/m Plan: The patient was seen and evaluated Medications reviewed Slow to progress Titrate the FiO2 as tolerated Continue the current treatment plan Increase her activity as tolerated Probable discharge in the a.m. We will continue to follow I have personally seen and examined the patient, performed the documentation and the assessment and plan as written. Number of minutes spent on the visit: 10.
--- NOTE | 2023-10-29 19:22 | P.PN ---
Subjective Progress Note Date: 10/29/23 Patient is a 62-year-old female with a known history of COPD/asthma, GERD, anxiety, current everyday smoker and occasional marijuana use presents to ER with complaints of worsening shortness of breath for the past 5 days. Patient was recently treated for COPD exacerbation as an outpatient. She has been having progressively worsening shortness of breath and cough with whitish sputum production and chest tightness. Denies any fever or chills. No nausea or vomiting or abdominal pain. Patient was started on antibiotics azithromycin and Medrol Dosepak as an outpatient on Tuesday. Patient started taking her medications getting worse. Presents to ER for further evaluation. In the ER chest x-ray showed no acute cardiopulmonary process. EKG showed sinus rhythm. Laboratory data showed WBC 7.2 hemoglobin 12.6 and platelets 295 BUN 16 creatinine 0.71 [place] episode not elevated. proBNP 129 and patient is tested positive for RSV PCR. 10/28/2023 Patient is seen in follow-up today with pulmonary following maintained on IV steroids along with breathing treatments and continued supplemental oxygen of 2 to 3 L. Patient does not wear oxygen outpatient. Patient continues to be extremely bronchospastic with significant expiratory wheezing noted on exam. Patient is afebrile and continues to report shortness of breath and frequent coughing spells with exertion. Patient tolerating diet with no reported nausea or vomiting. Patient also having some left-sided rib cage pain likely secondary to the cough and will add lidocaine patches. Encouraged to increase activity as tolerated. 10/29/2023 Patient is seen in follow-up today continues to have significant wheezing and frequent coughing spells with shortness of breath. Patient is continued on 2 L and does not normally wear any oxygen outpatient. Pulmonary following and maintained on empiric antibiotics along with IV steroids and continued breathing treatments [id number]. Patient reports continued rib cage pain with coughing although feels somewhat improved with Toradol. Patient is afebrile with no reported chest pain or palpitations noted. Patient is tolerating diet. Encouraged to increase activity as tolerated and sitting up in the chair more often. Review of systems: Constitutional: No reports of fatigue, fever, or chills Cardiovascular: No reports of chest pain or palpitations, reports chest wall pain from the coughing Respiratory: reports of continued headache shortness of breath and continued cough GI: No reports of nausea, vomiting, or diarrhea : No reports of dysuria or retention Neurovascular: No reports of weakness or numbness All medications have been reviewed PHYSICAL EXAMINATION: Patient is a 62-year-old female who is sitting up in the bed, awake alert and oriented x 3, well-developed, well-nourished, obese.. HEENT: Normocephalic. Neck is supple. Pupils reactive. Nostrils clear. Oral cavity is moist. Neck reveals no JVD, carotid bruits, or thyromegaly. CHEST EXAMINATION: Trachea is central. Symmetrical expansion. Patient does have bilateral diffuse expiratory wheezing, diminished sounds and scattered coarse sounds. Nonlabored breathing.. CARDIAC: Normal S1, S2 with no gallops. No murmurs ABDOMEN: Soft. Obese. Bowel sounds present. Nontender. No organomegaly. No abdominal bruits. Extremities: reveal no edema. No clubbing or cyanosis Neurologically awake, alert, oriented x3 with well-coordinated movements. No focal deficits noted Skin: No rash or skin lesions. Psychiatric: Cooperative. Non-suicidal, Musculoskeletal: No joint swelling or deformity. Normal range of motion. Assessment: Acute COPD exacerbation due to underlying RSV infection. Failed outpatient treatment. Acute RSV infection. Chest x-ray showed no acute process. Severe GERD Nicotine addiction quit in April 2023 History of left axillary lymphadenopathy, follow-up as outpatient Hiatal hernia Obesity with BMI 31.1 GI and DVT prophylaxis with Protonix and heparin subcu Plan: Patient will be continued on IV Solu-Medrol 60 mg every 6 hourly and DuoNebs and Symbicort. Procalcitonin level was normal Pulmonary following recommending to continue with steroids and treatments. Patient is wearing 2 to 3 L of oxygen via nasal cannula and recommend to wean FiO2 as tolerated as patient does not wear oxygen outpatient Will add incentive spirometer and encourage at least 10 times every hour while awake Home medications reviewed and resumed On doxycycline for possible acute bronchitis. Encouraged to increase activity as tolerated and sitting up out of the bed more often Patient encouraged to get up and take a shower. The impression and plan of care has been dictated by Delilah Bob, Nurse Practitioner as directed. Dr. Clementina MD I have performed a history and examination and MDM of this patient, discussed the same with the dictator, and agree with the dictator's assessment and plan as written ,documented as a scribe. Based on total visit time, I have performed more than 50% of the visit. Objective - Vital Signs Vital signs: Vital Signs Temp 98.3 F 10/29/23 14:00 Pulse 73 10/29/23 18:42 Resp 16 10/29/23 14:00 BP 145/81 10/29/23 14:00 Pulse Ox 98 10/29/23 14:00 FiO2 Intake & Output 10/29/23 10/29/23 10/30/23 06:59 18:59 06:59 Intake Total 600 Balance 600 Intake: Oral 600 Other: # Voids 2 2 # Bowel Movements 1 - Labs CBC & Chem 7: 10/28/23 07:02 10/28/23 07:02
--- NOTE | 2023-10-30 11:44 | P.PN ---
Subjective Progress Note Date: 10/30/23 I am seeing this patient in consultation today October 27, 2023 in the emergency room after she failed outpatient treatment for COPD exacerbation. Patient is a 62-year-old white female with past medical history significant for COPD, GERD, recent ex-smoker as of April,. Patient is known to have mild COPD, she does follow with Dr. Gonzales in the pulmonary office. Most recent FEV1 80% of predicted. She was recently treated for a COPD exacerbation outpatient last month. Starting last Tuesday the patient started to develop recurrent symptoms of progressively worsening shortness of breath, mostly nonproductive cough with occasional white frothy sputum, chest tightness, and wheezing. Denies fevers, chest pain, hemoptysis. Patient states that she received another round of azithromycin and Medrol Dosepak on Tuesday. Despite taking these medications, her symptoms became severe starting 2 days ago, and she presented the emergency room yesterday afternoon. On arrival, she was found to be positive for RSV. Chest x-ray does not show any acute cardiopulmonary process. No focal infiltrates or evidence of pneumonia. CBC on arrival unremarkable. No leukocytosis. BMP on arrival also unremarkable. She has been started on standard medications for COPD including bronchodilators, Symbicort inhaler, and IV Solu-Medrol. She is currently afebrile. She is resting in bed on 2 L nasal cannula, in no acute distress. She appears nontoxic. Vital signs are stable. The patient is seen today October 28, 2023 and follow-up on the regular medical floor. She is currently sitting up in bed. Awake and alert in no acute distress. Not much improved today compared to yesterday. Still somewhat b ronchospastic and wheezing. Dyspneic with conversation. Dyspneic with minimal exertion. She is maintaining O2 saturations in the 90s on 3 L/min per nasal cannula. She is afebrile. Hemodynamically stable. She is continued on DuoNeb ventilations, Symbicort, Solu-Medrol. Empiric antibiotics in the form of doxycycline. Procalcitonin was 0.03. She is having some yellow productive sputum. White count 14.5. Hemoglobin 11.4. Sodium 138. Potassium 4.8. Bicarb 24. BUN 23. Creatinine 0.8. Glucose 135. She is positive for RSV. The patient is seen today October 29, 2023 in follow-up on the regular medical floor. She is resting in bed. Awake and alert in no acute distress. She has been slow to progress. Still with some loose congested cough and wheezing. She is maintaining O2 saturations in the 90s on 3 L/min per nasal cannula. No new labs today. She is continued on DuoNeb elations, Symbicort, Solu-Medrol. Heparin for DVT prophylaxis. Empiric antibiotics in the form of Vibramycin. Remains on Tessalon Perles. The patient is seen today October 30, 2023 and follow-up on the regular medical floor. She is sitting up in bed. Awake and alert in no acute distress. She is still somewhat bronchospastic and wheezing. Not quite back to her baseline. She is dyspneic with minimal exertion. Dyspneic with conversation. She is continued on DuoNeb and elations, Symbicort, Solu-Medrol. Empiric antibiotics in the form of Vibramycin. Remains on Tessalon Perles. Heparin for DVT prophylaxis. No new labs today. Objective - Vital Signs Vital signs: Vital Signs Temp 98.4 F 10/30/23 08:00 Pulse 72 10/30/23 09:47 Resp 16 10/30/23 08:00 BP 138/82 10/30/23 08:00 Pulse Ox 97 10/30/23 08:00 FiO2 Intake & Output 10/29/23 10/30/23 10/30/23 18:59 06:59 18:59 Intake Total 600 Balance 600 Intake: Oral 600 Other: # Voids 2 2 # Bowel Movements 1 - Exam GENERAL EXAM: Alert, pleasant 62-year-old female, on 2 L nasal cannula, in no apparent distress. HEAD: Normocephalic. EYES: Normal reaction of pupils, equal size. NOSE: Clear with pink turbinates. THROAT: No erythema or exudates. NECK: No masses, no JVD. CHEST: No chest wall deformity. LUNGS: Equal air entry with bilateral end expiratory wheeze, diminished. CVS: S1 and S2 normal with no audible murmur, regular rhythm. ABDOMEN: No hepatosplenomegaly, normal bowel sounds, no guarding or rigidity. SPINE: No scoliosis or deformity SKIN: No rashes CENTRAL NERVOUS SYSTEM: No focal deficits, tone is normal in all 4 extremities. EXTREMITIES: There is no peripheral edema. No clubbing, no cyanosis. Peripheral pulses are intact. - Labs CBC & Chem 7: 10/28/23 07:02 10/28/23 07:02 Assessment and Plan Assessment: Acute COPD exacerbation, secondary to acute bronchitis and RSV infection. Chest x-ray on arrival shows no focal infiltrates or evidence of pneumonia. GERD without esophagitis Hypothyroidism History of left axillary lymphadenopathy, being followed up outpatient History of hiatal hernia Recent ex-smoker as of April, Obesity, with a BMI of 31.1 kg/m Plan: The patient was seen and evaluated Medications reviewed Continue the current treatment plan Increase her activity as tolerated Still not quite back to her baseline We will continue to follow I have personally seen and examined the patient, performed the documentation and the assessment and plan as written. Number of minutes spent on the visit: 10.
--- NOTE | 2023-10-31 05:41 | P.PN ---
Subjective Progress Note Date: 10/30/23 Patient is a 62-year-old female with a known history of COPD/asthma, GERD, anxiety, current everyday smoker and occasional marijuana use presents to ER with complaints of worsening shortness of breath for the past 5 days. Patient was recently treated for COPD exacerbation as an outpatient. She has been having progressively worsening shortness of breath and cough with whitish sputum production and chest tightness. Denies any fever or chills. No nausea or vomiting or abdominal pain. Patient was started on antibiotics azithromycin and Medrol Dosepak as an outpatient on Tuesday. Patient started taking her medications getting worse. Presents to ER for further evaluation. In the ER chest x-ray showed no acute cardiopulmonary process. EKG showed sinus rhythm. Laboratory data showed WBC 7.2 hemoglobin 12.6 and platelets 295 BUN 16 creatinine 0.71 [place] episode not elevated. proBNP 129 and patient is tested positive for RSV PCR. 10/28/2023 Patient is seen in follow-up today with pulmonary following maintained on IV steroids along with breathing treatments and continued supplemental oxygen of 2 to 3 L. Patient does not wear oxygen outpatient. Patient continues to be extremely bronchospastic with significant expiratory wheezing noted on exam. Patient is afebrile and continues to report shortness of breath and frequent coughing spells with exertion. Patient tolerating diet with no reported nausea or vomiting. Patient also having some left-sided rib cage pain likely secondary to the cough and will add lidocaine patches. Encouraged to increase activity as tolerated. 10/29/2023 Patient is seen in follow-up today continues to have significant wheezing and frequent coughing spells with shortness of breath. Patient is continued on 2 L and does not normally wear any oxygen outpatient. Pulmonary following and maintained on empiric antibiotics along with IV steroids and continued breathing treatments [id number]. Patient reports continued rib cage pain with coughing although feels somewhat improved with Toradol. Patient is afebrile with no reported chest pain or palpitations noted. Patient is tolerating diet. Encouraged to increase activity as tolerated and sitting up in the chair more often. 10/30/2023 Patient is seen and evaluated in follow-up today with pulmonary following. Patient continues on IV steroids along with breathing inhalational treatments and reports to feeling somewhat improved although continues to require oxygen at 2 L. Patient does not wear oxygen outpatient and have discussed with the patient along with nursing staff about weaning FiO2 as tolerated. Encouraged to increase activity as tolerated. Patient to continue with Tessalon Perles as patient has significant coughing with continued expiratory wheezing noted on exam. Encouraged incentive spirometer use at least 10 times every hour while awake. Review of systems: Constitutional: No reports of fatigue, fever, or chills Cardiovascular: No reports of chest pain or palpitations, reports chest wall pain from the coughing that feels slightly improved Respiratory: reports of continued shortness of breath and continued cough GI: No reports of nausea, vomiting, or diarrhea : No reports of dysuria or retention Neurovascular: No reports of weakness or numbness, reports headache is improved All medications have been reviewed PHYSICAL EXAMINATION: Patient is a 62-year-old female who is sitting up in the bed, awake alert and oriented x 3, well-developed, well-nourished, obese.. HEENT: Normocephalic. Neck is supple. Pupils reactive. Nostrils clear. Oral cavity is moist. Neck reveals no JVD, carotid bruits, or thyromegaly. CHEST EXAMINATION: Trachea is central. Symmetrical expansion. Patient does have bilateral diffuse expiratory wheezing, diminished sounds and scattered coarse sounds. Nonlabored breathing.. CARDIAC: Normal S1, S2 with no gallops. No murmurs ABDOMEN: Soft. Obese. Bowel sounds present. Nontender. No organomegaly. No abdominal bruits. Extremities: reveal no edema. No clubbing or cyanosis Neurologically awake, alert, oriented x3 with well-coordinated movements. No focal deficits noted Skin: No rash or skin lesions. Psychiatric: Cooperative. Non-suicidal, Musculoskeletal: No joint swelling or deformity. Normal range of motion. Assessment: Acute COPD exacerbation due to underlying RSV infection. Failed outpatient treatment. Acute RSV infection. Chest x-ray showed no acute process. Severe GERD Nicotine addiction quit in April 2023 History of left axillary lymphadenopathy, follow-up as outpatient Hiatal hernia Obesity with BMI 31.1 GI and DVT prophylaxis with Protonix and heparin subcu Plan: Patient will be continued on IV Solu-Medrol 60 mg every 6 hourly and DuoNebs and Symbicort. Procalcitonin level was normal Pulmonary following recommending to continue with steroids and treatments. Patient is wearing 2 L of oxygen via nasal cannula and recommend to wean FiO2 as tolerated as patient does not wear oxygen outpatient Continue incentive spirometer and encourage at least 10 times every hour while awake Home medications reviewed and resumed On doxycycline for possible acute bronchitis. Encouraged to increase activity as tolerated and sitting up out of the bed more often Patient encouraged to get up and take a shower. Will follow-up with repeat chest x-ray in the a.m. Awaiting pulmonary clearance and patient will follow-up with pulmonary outpatient Possible discharge in the next 24 to 48 hours The impression and plan of care has been dictated by Delilah Bob, Nurse Practitioner as directed. Dr. Clementina MD I have performed a history and examination and MDM of this patient, discussed the same with the dictator, and agree with the dictator's assessment and plan as written ,documented as a scribe. Based on total visit time, I have performed more than 50% of the visit. Objective - Vital Signs Vital signs: Vital Signs Temp 98.2 F 10/30/23 14:00 Pulse 80 10/30/23 16:32 Resp 16 10/30/23 14:00 BP 155/76 10/30/23 14:00 Pulse Ox 96 10/30/23 14:00 FiO2 Intake & Output 10/29/23 10/30/23 10/30/23 18:59 06:59 18:59 Intake Total 600 Balance 600 Intake: Oral 600 Other: # Voids 2 2 3 # Bowel Movements 1 - Labs CBC & Chem 7: 10/28/23 07:02 10/28/23 07:02
--- NOTE | 2023-10-31 07:47 | XR ---
EXAMINATION TYPE: XR chest 1V portable DATE OF EXAM: 10/31/2023 6:50 AM COMPARISON: Chest radiographs from 10/26/2023 TECHNIQUE: XR chest 1V portable Portable AP radiograph of the chest. CLINICAL INDICATION:Female, 62 years old with history of shortness of breath; FINDINGS: Lungs/Pleura: There is no evidence of pleural effusion, focal consolidation, or pneumothorax. Pulmonary vascularity: Unremarkable. Heart/mediastinum: Cardiomediastinal silhouette is unremarkable. Musculoskeletal: No acute osseous pathology. IMPRESSION: No acute cardiopulmonary disease/process.
--- NOTE | 2023-10-31 12:28 | P.PN ---
Subjective Progress Note Date: 10/31/23 I am seeing this patient in consultation today October 27, 2023 in the emergency room after she failed outpatient treatment for COPD exacerbation. Patient is a 62-year-old white female with past medical history significant for COPD, GERD, recent ex-smoker as of April,. Patient is known to have mild COPD, she does follow with Dr. Gonzales in the pulmonary office. Most recent FEV1 80% of predicted. She was recently treated for a COPD exacerbation outpatient last month. Starting last Tuesday the patient started to develop recurrent symptoms of progressively worsening shortness of breath, mostly nonproductive cough with occasional white frothy sputum, chest tightness, and wheezing. Denies fevers, chest pain, hemoptysis. Patient states that she received another round of azithromycin and Medrol Dosepak on Tuesday. Despite taking these medications, her symptoms became severe starting 2 days ago, and she presented the emergency room yesterday afternoon. On arrival, she was found to be positive for RSV. Chest x-ray does not show any acute cardiopulmonary process. No focal infiltrates or evidence of pneumonia. CBC on arrival unremarkable. No leukocytosis. BMP on arrival also unremarkable. She has been started on standard medications for COPD including bronchodilators, Symbicort inhaler, and IV Solu-Medrol. She is currently afebrile. She is resting in bed on 2 L nasal cannula, in no acute distress. She appears nontoxic. Vital signs are stable. The patient is seen today October 28, 2023 and follow-up on the regular medical floor. She is currently sitting up in bed. Awake and alert in no acute distress. Not much improved today compared to yesterday. Still somewhat b ronchospastic and wheezing. Dyspneic with conversation. Dyspneic with minimal exertion. She is maintaining O2 saturations in the 90s on 3 L/min per nasal cannula. She is afebrile. Hemodynamically stable. She is continued on DuoNeb ventilations, Symbicort, Solu-Medrol. Empiric antibiotics in the form of doxycycline. Procalcitonin was 0.03. She is having some yellow productive sputum. White count 14.5. Hemoglobin 11.4. Sodium 138. Potassium 4.8. Bicarb 24. BUN 23. Creatinine 0.8. Glucose 135. She is positive for RSV. The patient is seen today October 29, 2023 in follow-up on the regular medical floor. She is resting in bed. Awake and alert in no acute distress. She has been slow to progress. Still with some loose congested cough and wheezing. She is maintaining O2 saturations in the 90s on 3 L/min per nasal cannula. No new labs today. She is continued on DuoNeb elations, Symbicort, Solu-Medrol. Heparin for DVT prophylaxis. Empiric antibiotics in the form of Vibramycin. Remains on Tessalon Perles. The patient is seen today October 30, 2023 and follow-up on the regular medical floor. She is sitting up in bed. Awake and alert in no acute distress. She is still somewhat bronchospastic and wheezing. Not quite back to her baseline. She is dyspneic with minimal exertion. Dyspneic with conversation. She is continued on DuoNeb and elations, Symbicort, Solu-Medrol. Empiric antibiotics in the form of Vibramycin. Remains on Tessalon Perles. Heparin for DVT prophylaxis. No new labs today. The patient is seen today October 31, 2023 in follow-up on the regular medical floor. She is awake and alert in no acute distress. She has been slow to progr ess. She is still somewhat bronchospastic and wheezing. Still not back to her baseline. She is maintaining O2 saturations in the 90s on 2 L/min per nasal cannula. She is being treated for COPD exacerbation complicated by RSV. Her procalcitonin was 0.03. She remains on empiric antibiotics in the form of doxycycline. She is on DuoNeb ventilations, Symbicort, Solu-Medrol, Singulair. Remains on Tessalon Perles. Heparin for DVT prophylaxis. Today's chest x-ray reveals no acute cardiopulmonary process. Objective - Vital Signs Vital signs: Vital Signs Temp 98.6 F 10/31/23 07:50 Pulse 84 10/31/23 11:56 Resp 16 10/31/23 08:00 BP 153/78 10/31/23 07:50 Pulse Ox 97 10/31/23 07:50 FiO2 Intake & Output 10/30/23 10/31/23 10/31/23 18:59 06:59 18:59 Intake Total 240 Balance 240 Intake: Oral 240 Other: # Voids 3 1 # Bowel Movements 1 - Exam GENERAL EXAM: Alert, 62-year-old female, sitting up in bed, on 2 L nasal cannul a, in no apparent distress. HEAD: Normocephalic. EYES: Normal reaction of pupils, equal size. NOSE: Clear with pink turbinates. THROAT: No erythema or exudates. NECK: No masses, no JVD. CHEST: No chest wall deformity. LUNGS: Equal air entry with bilateral end expiratory wheeze, diminished. CVS: S1 and S2 normal with no audible murmur, regular rhythm. ABDOMEN: No hepatosplenomegaly, normal bowel sounds, no guarding or rigidity. SPINE: No scoliosis or deformity SKIN: No rashes CENTRAL NERVOUS SYSTEM: No focal deficits, tone is normal in all 4 extremities. EXTREMITIES: There is no peripheral edema. No clubbing, no cyanosis. Peripheral pulses are intact. - Labs CBC & Chem 7: 10/28/23 07:02 10/28/23 07:02 Assessment and Plan Assessment: Acute COPD exacerbation, secondary to acute bronchitis and RSV infection. Chest x-ray today October 31, 2023 continues to reveal no acute process. GERD without esophagitis Hypothyroidism History of left axillary lymphadenopathy, being followed up outpatient History of hiatal hernia Recent ex-smoker as of April, Obesity, with a BMI of 31.1 kg/m Plan: The patient was seen and evaluated Medications and chest x-ray reviewed No acute pulmonary process Continue the current treatment plan Increase her activity as tolerated Still not ready for discharge We will continue to follow I have personally seen and examined the patient, performed the documentation and the assessment and plan as written. Number of minutes spent on the visit: 10.
--- NOTE | 2023-10-31 14:24 | P.PN ---
Subjective Progress Note Date: 10/31/23 Patient is a 62-year-old female with a known history of COPD/asthma, GERD, anxiety, current everyday smoker and occasional marijuana use presents to ER with complaints of worsening shortness of breath for the past 5 days. Patient was recently treated for COPD exacerbation as an outpatient. She has been having progressively worsening shortness of breath and cough with whitish sputum production and chest tightness. Denies any fever or chills. No nausea or vomiting or abdominal pain. Patient was started on antibiotics azithromycin and Medrol Dosepak as an outpatient on Tuesday. Patient started taking her medications getting worse. Presents to ER for further evaluation. In the ER chest x-ray showed no acute cardiopulmonary process. EKG showed sinus rhythm. Laboratory data showed WBC 7.2 hemoglobin 12.6 and platelets 295 BUN 16 creatinine 0.71 [place] episode not elevated. proBNP 129 and patient is tested positive for RSV PCR. 10/28/2023 Patient is seen in follow-up today with pulmonary following maintained on IV steroids along with breathing treatments and continued supplemental oxygen of 2 to 3 L. Patient does not wear oxygen outpatient. Patient continues to be extremely bronchospastic with significant expiratory wheezing noted on exam. Patient is afebrile and continues to report shortness of breath and frequent coughing spells with exertion. Patient tolerating diet with no reported nausea or vomiting. Patient also having some left-sided rib cage pain likely secondary to the cough and will add lidocaine patches. Encouraged to increase activity as tolerated. 10/29/2023 Patient is seen in follow-up today continues to have significant wheezing and frequent coughing spells with shortness of breath. Patient is continued on 2 L and does not normally wear any oxygen outpatient. Pulmonary following and maintained on empiric antibiotics along with IV steroids and continued breathing treatments [id number]. Patient reports continued rib cage pain with coughing although feels somewhat improved with Toradol. Patient is afebrile with no reported chest pain or palpitations noted. Patient is tolerating diet. Encouraged to increase activity as tolerated and sitting up in the chair more often. 10/30/2023 Patient is seen and evaluated in follow-up today with pulmonary following. Patient continues on IV steroids along with breathing inhalational treatments and reports to feeling somewhat improved although continues to require oxygen at 2 L. Patient does not wear oxygen outpatient and have discussed with the patient along with nursing staff about weaning FiO2 as tolerated. Encouraged to increase activity as tolerated. Patient to continue with Tessalon Perles as patient has significant coughing with continued expiratory wheezing noted on exam. Encouraged incentive spirometer use at least 10 times every hour while awake. 10/31/2023 Patient is seen in follow-up today with pulmonary following continues to be bronchospastic and wheezing and shortness of breath with exertion. Patient continues on 2 L and discussed with nursing staff about weaning FiO2 as tolerated. Continue with incentive spirometer use and will continue on IV steroids along with continued breathing treatments. Patient continues on doxycycline and will complete the dose today. Will perform home O2 eval in the event patient may require oxygen on discharge. Patient reports some improvements in her shortness of breath although continues to have frequent coughing spells and continues to be significantly wheezing on exam. Chest x-ray today shows no acute cardiopulmonary disease or process. Review of systems: Constitutional: No reports of fatigue, fever, or chills Cardiovascular: No reports of chest pain or palpitations, reports chest wall pain from the coughing that feels slightly improved Respiratory: reports of continued shortness of breath and continued cough GI: No reports of nausea, vomiting, or diarrhea : No reports of dysuria or retention Neurovascular: No reports of weakness or numbness, reports headache is improved All medications have been reviewed PHYSICAL EXAMINATION: Patient is a 62-year-old female who is sitting up in the bed, awake alert and oriented x 3, well-developed, well-nourished, obese.. HEENT: Normocephalic. Neck is supple. Pupils reactive. Nostrils clear. Oral cavity is moist. Neck reveals no JVD, carotid bruits, or thyromegaly. CHEST EXAMINATION: Trachea is central. Symmetrical expansion. Patient does have bilateral diffuse expiratory wheezing, diminished sounds and scattered coarse sounds. Nonlabored breathing.. CARDIAC: Normal S1, S2 with no gallops. No murmurs ABDOMEN: Soft. Obese. Bowel sounds present. Nontender. No organomegaly. No abdominal bruits. Extremities: reveal no edema. No clubbing or cyanosis Neurologically awake, alert, oriented x3 with well-coordinated movements. No focal deficits noted Skin: No rash or skin lesions. Psychiatric: Cooperative. Non-suicidal, Musculoskeletal: No joint swelling or deformity. Normal range of motion. Assessment: Acute COPD exacerbation due to underlying RSV infection. Failed outpatient treatment. Acute RSV infection. Chest x-ray showed no acute process. Severe GERD Nicotine addiction quit in April 2023 History of left axillary lymphadenopathy, follow-up as outpatient Hiatal hernia Obesity with BMI 31.1 GI and DVT prophylaxis with Protonix and heparin subcu Plan: Patient will be continued on IV Solu-Medrol 60 mg every 6 hourly and DuoNebs and Symbicort. Procalcitonin level was normal. Patient to complete doxycycline today Pulmonary following recommending to continue with steroids and treatments. Patient is wearing 2 L of oxygen via nasal cannula and recommend to wean FiO2 as tolerated as patient does not wear oxygen outpatient. Follow-up chest x-ray shows no acute cardiopulmonary process Continue incentive spirometer and encourage at least 10 times every hour while awake Home medications reviewed and resumed Encouraged to increase activity as tolerated and sitting up out of the bed more often Patient encouraged to get up and take a shower. Possible discharge in the next 24 to 48 hours The impression and plan of care has been dictated by Delilah Bob, Nurse Practitioner as directed. Dr. Clementina MD I have performed a history and examination and MDM of this patient, discussed the same with the dictator, and agree with the dictator's assessment and plan as written ,documented as a scribe. Based on total visit time, I have performed more than 50% of the visit. Objective - Vital Signs Vital signs: Vital Signs Temp 98.6 F 10/31/23 07:50 Pulse 88 10/31/23 08:35 Resp 16 10/31/23 07:50 BP 153/78 10/31/23 07:50 Pulse Ox 97 10/31/23 07:50 FiO2 Intake & Output 10/30/23 10/31/23 10/31/23 18:59 06:59 18:59 Intake Total 240 Balance 240 Intake: Oral 240 Other: # Voids 3 1 # Bowel Movements 1 - Labs CBC & Chem 7: 10/28/23 07:02 10/28/23 07:02
--- NOTE | 2023-11-01 11:57 | P.PN ---
Subjective Progress Note Date: 11/01/23 I am seeing this patient in consultation today October 27, 2023 in the emergency room after she failed outpatient treatment for COPD exacerbation. Patient is a 62-year-old white female with past medical history significant for COPD, GERD, recent ex-smoker as of April,. Patient is known to have mild COPD, she does follow with Dr. Gonzales in the pulmonary office. Most recent FEV1 80% of predicted. She was recently treated for a COPD exacerbation outpatient last month. Starting last Tuesday the patient started to develop recurrent symptoms of progressively worsening shortness of breath, mostly nonproductive cough with occasional white frothy sputum, chest tightness, and wheezing. Denies fevers, chest pain, hemoptysis. Patient states that she received another round of azithromycin and Medrol Dosepak on Tuesday. Despite taking these medications, her symptoms became severe starting 2 days ago, and she presented the emergency room yesterday afternoon. On arrival, she was found to be positive for RSV. Chest x-ray does not show any acute cardiopulmonary process. No focal infiltrates or evidence of pneumonia. CBC on arrival unremarkable. No leukocytosis. BMP on arrival also unremarkable. She has been started on standard medications for COPD including bronchodilators, Symbicort inhaler, and IV Solu-Medrol. She is currently afebrile. She is resting in bed on 2 L nasal cannula, in no acute distress. She appears nontoxic. Vital signs are stable. The patient is seen today October 28, 2023 and follow-up on the regular medical floor. She is currently sitting up in bed. Awake and alert in no acute distress. Not much improved today compared to yesterday. Still somewhat b ronchospastic and wheezing. Dyspneic with conversation. Dyspneic with minimal exertion. She is maintaining O2 saturations in the 90s on 3 L/min per nasal cannula. She is afebrile. Hemodynamically stable. She is continued on DuoNeb ventilations, Symbicort, Solu-Medrol. Empiric antibiotics in the form of doxycycline. Procalcitonin was 0.03. She is having some yellow productive sputum. White count 14.5. Hemoglobin 11.4. Sodium 138. Potassium 4.8. Bicarb 24. BUN 23. Creatinine 0.8. Glucose 135. She is positive for RSV. The patient is seen today October 29, 2023 in follow-up on the regular medical floor. She is resting in bed. Awake and alert in no acute distress. She has been slow to progress. Still with some loose congested cough and wheezing. She is maintaining O2 saturations in the 90s on 3 L/min per nasal cannula. No new labs today. She is continued on DuoNeb elations, Symbicort, Solu-Medrol. Heparin for DVT prophylaxis. Empiric antibiotics in the form of Vibramycin. Remains on Tessalon Perles. The patient is seen today October 30, 2023 and follow-up on the regular medical floor. She is sitting up in bed. Awake and alert in no acute distress. She is still somewhat bronchospastic and wheezing. Not quite back to her baseline. She is dyspneic with minimal exertion. Dyspneic with conversation. She is continued on DuoNeb and elations, Symbicort, Solu-Medrol. Empiric antibiotics in the form of Vibramycin. Remains on Tessalon Perles. Heparin for DVT prophylaxis. No new labs today. The patient is seen today October 31, 2023 in follow-up on the regular medical floor. She is awake and alert in no acute distress. She has been slow to progr ess. She is still somewhat bronchospastic and wheezing. Still not back to her baseline. She is maintaining O2 saturations in the 90s on 2 L/min per nasal cannula. She is being treated for COPD exacerbation complicated by RSV. Her procalcitonin was 0.03. She remains on empiric antibiotics in the form of doxycycline. She is on DuoNeb ventilations, Symbicort, Solu-Medrol, Singulair. Remains on Tessalon Perles. Heparin for DVT prophylaxis. Today's chest x-ray reveals no acute cardiopulmonary process. The patient is seen today November 01, 2023 in follow-up on the regular medical floor. She is sitting up in bed. Awake and alert in no acute distress. Still with some loose cough. Still with some shortness of breath on exertion and conversation. She is maintaining good O2 saturations in the 90s on 2 L/min per nasal cannula. No IV fluids. Remains on DuoNeb inhalations, Symbicort, Solu- Medrol, Singulair. Heparin for DVT prophylaxis. Objective - Vital Signs Vital signs: Vital Signs Temp 98.1 F 11/01/23 07:40 Pulse 90 11/01/23 11:42 Resp 16 11/01/23 11:42 BP 158/83 11/01/23 07:40 Pulse Ox 96 11/01/23 08:33 FiO2 Intake & Output 10/31/23 11/01/23 11/01/23 18:59 06:59 18:59 Intake Total 0 320 Balance 0 320 Intake: Oral 0 320 Other: # Voids 3 2 - Exam GENERAL EXAM: Alert, oriented, 62-year-old female, on 2 L nasal cannula, in no apparent distress. HEAD: Normocephalic. EYES: Normal reaction of pupils, equal size. NOSE: Clear with pink turbinates. THROAT: No erythema or exudates. NECK: No masses, no JVD. CHEST: No chest wall deformity. LUNGS: Equal air entry with bilateral end expiratory wheeze, diminished. CVS: S1 and S2 normal with no audible murmur, regular rhythm. ABDOMEN: No hepatosplenomegaly, normal bowel sounds, no guarding or rigidity. SPINE: No scoliosis or deformity SKIN: No rashes CENTRAL NERVOUS SYSTEM: No focal deficits, tone is normal in all 4 extremities. EXTREMITIES: There is no peripheral edema. No clubbing, no cyanosis. Peripheral pulses are intact. - Labs CBC & Chem 7: 10/28/23 07:02 10/28/23 07:02 Assessment and Plan Assessment: Acute COPD exacerbation, secondary to acute bronchitis and RSV infection. Chest x-ray October 31, 2023 continues to reveal no acute process. GERD without esophagitis Hypothyroidism History of left axillary lymphadenopathy, being followed up outpatient History of hiatal hernia Recent ex-smoker as of April, Obesity, with a BMI of 31.1 kg/m Plan: The patient was seen and evaluated Medications reviewed Continue the current treatment plan Increase her activity as tolerated Possibly home in the a.m. We will continue to follow I have personally seen and examined the patient, performed the documentation and the assessment and plan as written. Number of minutes spent on the visit: 10.
[2023-11-01] MEDS: guaiFENesin-DM 100-10MG/5ML 10 ML CUP PO PRN (20:36)
--- NOTE | 2023-11-02 05:07 | P.PN ---
Subjective Progress Note Date: 11/01/23 Patient is a 62-year-old female with a known history of COPD/asthma, GERD, anxiety, current everyday smoker and occasional marijuana use presents to ER with complaints of worsening shortness of breath for the past 5 days. Patient was recently treated for COPD exacerbation as an outpatient. She has been having progressively worsening shortness of breath and cough with whitish sputum production and chest tightness. Denies any fever or chills. No nausea or vomiting or abdominal pain. Patient was started on antibiotics azithromycin and Medrol Dosepak as an outpatient on Tuesday. Patient started taking her medications getting worse. Presents to ER for further evaluation. In the ER chest x-ray showed no acute cardiopulmonary process. EKG showed sinus rhythm. Laboratory data showed WBC 7.2 hemoglobin 12.6 and platelets 295 BUN 16 creatinine 0.71 [place] episode not elevated. proBNP 129 and patient is tested positive for RSV PCR. 10/28/2023 Patient is seen in follow-up today with pulmonary following maintained on IV steroids along with breathing treatments and continued supplemental oxygen of 2 to 3 L. Patient does not wear oxygen outpatient. Patient continues to be extremely bronchospastic with significant expiratory wheezing noted on exam. Patient is afebrile and continues to report shortness of breath and frequent coughing spells with exertion. Patient tolerating diet with no reported nausea or vomiting. Patient also having some left-sided rib cage pain likely secondary to the cough and will add lidocaine patches. Encouraged to increase activity as tolerated. 10/29/2023 Patient is seen in follow-up today continues to have significant wheezing and frequent coughing spells with shortness of breath. Patient is continued on 2 L and does not normally wear any oxygen outpatient. Pulmonary following and maintained on empiric antibiotics along with IV steroids and continued breathing treatments [id number]. Patient reports continued rib cage pain with coughing although feels somewhat improved with Toradol. Patient is afebrile with no reported chest pain or palpitations noted. Patient is tolerating diet. Encouraged to increase activity as tolerated and sitting up in the chair more often. 10/30/2023 Patient is seen and evaluated in follow-up today with pulmonary following. Patient continues on IV steroids along with breathing inhalational treatments and reports to feeling somewhat improved although continues to require oxygen at 2 L. Patient does not wear oxygen outpatient and have discussed with the patient along with nursing staff about weaning FiO2 as tolerated. Encouraged to increase activity as tolerated. Patient to continue with Tessalon Perles as patient has significant coughing with continued expiratory wheezing noted on exam. Encouraged incentive spirometer use at least 10 times every hour while awake. 10/31/2023 Patient is seen in follow-up today with pulmonary following continues to be bronchospastic and wheezing and shortness of breath with exertion. Patient continues on 2 L and discussed with nursing staff about weaning FiO2 as tolerated. Continue with incentive spirometer use and will continue on IV steroids along with continued breathing treatments. Patient continues on doxycycline and will complete the dose today. Will perform home O2 eval in the event patient may require oxygen on discharge. Patient reports some improvements in her shortness of breath although continues to have frequent coughing spells and continues to be significantly wheezing on exam. Chest x-ray today shows no acute cardiopulmonary disease or process. 11/01/2023 Patient is seen in follow-up today continues to be significantly bronchospastic on exam. Patient wheezing slightly improved although continues with expiratory wheezing noted at the bases and will continue on IV steroids along with DuoNeb treatments. Pulmonary following and recommending monitoring overnight with possible discharge planning in 24 hours. Patient is afebrile denies chest pain or worsening shortness of breath. Patient has been up and walking and reports to feeling slightly improved. Patient continues on 2 L via nasal cannula and has been weaning FiO2 as tolerated. Encouraged incentive spirometer use and weaning of the oxygen. Patient has completed doxycycline. Review of systems: Constitutional: No reports of fatigue, fever, or chills Cardiovascular: No reports of chest pain or palpitations, reports chest wall pain from the coughing that feels slightly improved Respiratory: reports of continued shortness of breath and continued cough although feels slightly improved GI: No reports of nausea, vomiting, or diarrhea : No reports of dysuria or retention Neurovascular: No reports of weakness or numbness, reports headache is improved All medications have been reviewed PHYSICAL EXAMINATION: Patient is a 62-year-old female who is sitting up in the bed, awake alert and oriented x 3, well-developed, well-nourished, obese.. HEENT: Normocephalic. Neck is supple. Pupils reactive. Nostrils clear. Oral cavity is moist. Neck reveals no JVD, carotid bruits, or thyromegaly. CHEST EXAMINATION: Trachea is central. Symmetrical expansion. Patient does have bilateral diffuse expiratory wheezing at the bases, diminished sounds and scattered coarse sounds. Nonlabored breathing.. CARDIAC: Normal S1, S2 with no gallops. No murmurs ABDOMEN: Soft. Obese. Bowel sounds present. Nontender. No organomegaly. No abdominal bruits. Extremities: reveal no edema. No clubbing or cyanosis Neurologically awake, alert, oriented x3 with well-coordinated movements. No focal deficits noted Skin: No rash or skin lesions. Psychiatric: Cooperative. Non-suicidal, Musculoskeletal: No joint swelling or deformity. Normal range of motion. Assessment: Acute COPD exacerbation due to underlying RSV infection. Failed outpatient treatment. Acute RSV infection. Chest x-ray showed no acute process. Severe GERD Nicotine addiction quit in April 2023 History of left axillary lymphadenopathy, follow-up as outpatient Hiatal hernia Obesity with BMI 31.1 GI and DVT prophylaxis with Protonix and heparin subcu Plan: Patient will be continued on IV Solu-Medrol 60 mg every 6 hourly and DuoNebs and Symbicort. Procalcitonin level was normal. Patient has completed doxycycline Pulmonary following recommending to continue with steroids and treatments. Patient is wearing 2 L of oxygen via nasal cannula and recommend to wean FiO2 as tolerated as patient does not wear oxygen outpatient. Repeat chest x-ray shows no acute cardiopulmonary process Continue incentive spirometer and encourage at least 10 times every hour while awake Home medications reviewed and resumed Encouraged to increase activity as tolerated and sitting up out of the bed more often Possible discharge in the next 24 hours The impression and plan of care has been dictated by Delilah Bob, Nurse Practitioner as directed. Dr. Tyler MD I have performed a history and examination and MDM of this patient, discussed the same with the dictator, and agree with the dictator's assessment and plan as written ,documented as a scribe. Based on total visit time, I have performed more than 50% of the visit. Objective - Vital Signs Vital signs: Vital Signs Temp 98.1 F 11/01/23 07:40 Pulse 88 11/01/23 08:31 Resp 16 11/01/23 08:31 BP 158/83 11/01/23 07:40 Pulse Ox 96 11/01/23 08:33 FiO2 Intake & Output 10/31/23 11/01/23 11/01/23 18:59 06:59 18:59 Intake Total 0 320 Balance 0 320 Intake: Oral 0 320 Other: # Voids 3 2 - Labs CBC & Chem 7: 10/28/23 07:02 10/28/23 07:02
--- NOTE | 2023-11-02 11:26 | P.PN ---
Subjective Progress Note Date: 11/02/23 I am seeing this patient in consultation today October 27, 2023 in the emergency room after she failed outpatient treatment for COPD exacerbation. Patient is a 62-year-old white female with past medical history significant for COPD, GERD, recent ex-smoker as of April,. Patient is known to have mild COPD, she does follow with Dr. Gonzales in the pulmonary office. Most recent FEV1 80% of predicted. She was recently treated for a COPD exacerbation outpatient last month. Starting last Tuesday the patient started to develop recurrent symptoms of progressively worsening shortness of breath, mostly nonproductive cough with occasional white frothy sputum, chest tightness, and wheezing. Denies fevers, chest pain, hemoptysis. Patient states that she received another round of azithromycin and Medrol Dosepak on Tuesday. Despite taking these medications, her symptoms became severe starting 2 days ago, and she presented the emergency room yesterday afternoon. On arrival, she was found to be positive for RSV. Chest x-ray does not show any acute cardiopulmonary process. No focal infiltrates or evidence of pneumonia. CBC on arrival unremarkable. No leukocytosis. BMP on arrival also unremarkable. She has been started on standard medications for COPD including bronchodilators, Symbicort inhaler, and IV Solu-Medrol. She is currently afebrile. She is resting in bed on 2 L nasal cannula, in no acute distress. She appears nontoxic. Vital signs are stable. The patient is seen today October 28, 2023 and follow-up on the regular medical floor. She is currently sitting up in bed. Awake and alert in no acute distress. Not much improved today compared to yesterday. Still somewhat b ronchospastic and wheezing. Dyspneic with conversation. Dyspneic with minimal exertion. She is maintaining O2 saturations in the 90s on 3 L/min per nasal cannula. She is afebrile. Hemodynamically stable. She is continued on DuoNeb ventilations, Symbicort, Solu-Medrol. Empiric antibiotics in the form of doxycycline. Procalcitonin was 0.03. She is having some yellow productive sputum. White count 14.5. Hemoglobin 11.4. Sodium 138. Potassium 4.8. Bicarb 24. BUN 23. Creatinine 0.8. Glucose 135. She is positive for RSV. The patient is seen today October 29, 2023 in follow-up on the regular medical floor. She is resting in bed. Awake and alert in no acute distress. She has been slow to progress. Still with some loose congested cough and wheezing. She is maintaining O2 saturations in the 90s on 3 L/min per nasal cannula. No new labs today. She is continued on DuoNeb elations, Symbicort, Solu-Medrol. Heparin for DVT prophylaxis. Empiric antibiotics in the form of Vibramycin. Remains on Tessalon Perles. The patient is seen today October 30, 2023 and follow-up on the regular medical floor. She is sitting up in bed. Awake and alert in no acute distress. She is still somewhat bronchospastic and wheezing. Not quite back to her baseline. She is dyspneic with minimal exertion. Dyspneic with conversation. She is continued on DuoNeb and elations, Symbicort, Solu-Medrol. Empiric antibiotics in the form of Vibramycin. Remains on Tessalon Perles. Heparin for DVT prophylaxis. No new labs today. The patient is seen today October 31, 2023 in follow-up on the regular medical floor. She is awake and alert in no acute distress. She has been slow to progr ess. She is still somewhat bronchospastic and wheezing. Still not back to her baseline. She is maintaining O2 saturations in the 90s on 2 L/min per nasal cannula. She is being treated for COPD exacerbation complicated by RSV. Her procalcitonin was 0.03. She remains on empiric antibiotics in the form of doxycycline. She is on DuoNeb ventilations, Symbicort, Solu-Medrol, Singulair. Remains on Tessalon Perles. Heparin for DVT prophylaxis. Today's chest x-ray reveals no acute cardiopulmonary process. The patient is seen today November 01, 2023 in follow-up on the regular medical floor. She is sitting up in bed. Awake and alert in no acute distress. Still with some loose cough. Still with some shortness of breath on exertion and conversation. She is maintaining good O2 saturations in the 90s on 2 L/min per nasal cannula. No IV fluids. Remains on DuoNeb inhalations, Symbicort, Solu- Medrol, Singulair. Heparin for DVT prophylaxis. The patient is seen today November 02, 2019 for follow-up on the regular medical floor. She is awake and alert in no acute distress. She has been slow to progress. She is still having a lot of cough and congestion. Difficulty expectorating her sputum. She has been continued on DuoNeb elations, Symbicort, Solu-Medrol, Singulair. Heparin for DVT prophylaxis. She is maintaining good O2 saturations in the 90s on room air. Objective - Vital Signs Vital signs: Vital Signs Temp 98.1 F 11/02/23 07:48 Pulse 64 11/02/23 08:42 Resp 20 11/02/23 07:48 BP 145/70 11/02/23 07:48 Pulse Ox 95 11/02/23 07:48 FiO2 Intake & Output 11/01/23 11/02/23 11/02/23 18:59 06:59 18:59 Intake Total 1060 618 Balance 1060 618 Intake: Oral 1060 618 Other: # Voids 3 3 - Exam GENERAL EXAM: Alert, very pleasant 62-year-old female, on room air, in no apparent distress. HEAD: Normocephalic. EYES: Normal reaction of pupils, equal size. NOSE: Clear with pink turbinates. THROAT: No erythema or exudates. NECK: No masses, no JVD. CHEST: No chest wall deformity. LUNGS: Equal air entry with bilateral end expiratory wheeze, rhonchi, diminished. CVS: S1 and S2 normal with no audible murmur, regular rhythm. ABDOMEN: No hepatosplenomegaly, normal bowel sounds, no guarding or rigidity. SPINE: No scoliosis or deformity SKIN: No rashes CENTRAL NERVOUS SYSTEM: No focal deficits, tone is normal in all 4 extremities. EXTREMITIES: There is no peripheral edema. No clubbing, no cyanosis. Peripheral pulses are intact. - Labs CBC & Chem 7: 10/28/23 07:02 10/28/23 07:02 Assessment and Plan Assessment: Acute COPD exacerbation, secondary to acute bronchitis and RSV infection. Chest x-ray October 31, 2023 continues to reveal no acute process. GERD without esophagitis Hypothyroidism History of left axillary lymphadenopathy, being followed up outpatient History of hiatal hernia Recent ex-smoker as of April, Obesity, with a BMI of 31.1 kg/m Plan: The patient was seen and evaluated Medications reviewed The patient has been slow to progress We will plan for bronchoscopy with BAL tomorrow Continue the current treatment plan Increase her activity as tolerated We will continue to follow I have personally seen and examined the patient, performed the documentation and the assessment and plan as written. Number of minutes spent on the visit: 10.
--- NOTE | 2023-11-03 05:30 | P.PN ---
Subjective Progress Note Date: 11/02/23 Patient is a 62-year-old female with a known history of COPD/asthma, GERD, anxiety, current everyday smoker and occasional marijuana use presents to ER with complaints of worsening shortness of breath for the past 5 days. Patient was recently treated for COPD exacerbation as an outpatient. She has been having progressively worsening shortness of breath and cough with whitish sputum production and chest tightness. Denies any fever or chills. No nausea or vomiting or abdominal pain. Patient was started on antibiotics azithromycin and Medrol Dosepak as an outpatient on Tuesday. Patient started taking her medications getting worse. Presents to ER for further evaluation. In the ER chest x-ray showed no acute cardiopulmonary process. EKG showed sinus rhythm. Laboratory data showed WBC 7.2 hemoglobin 12.6 and platelets 295 BUN 16 creatinine 0.71 [place] episode not elevated. proBNP 129 and patient is tested positive for RSV PCR. 10/28/2023 Patient is seen in follow-up today with pulmonary following maintained on IV steroids along with breathing treatments and continued supplemental oxygen of 2 to 3 L. Patient does not wear oxygen outpatient. Patient continues to be extremely bronchospastic with significant expiratory wheezing noted on exam. Patient is afebrile and continues to report shortness of breath and frequent coughing spells with exertion. Patient tolerating diet with no reported nausea or vomiting. Patient also having some left-sided rib cage pain likely secondary to the cough and will add lidocaine patches. Encouraged to increase activity as tolerated. 10/29/2023 Patient is seen in follow-up today continues to have significant wheezing and frequent coughing spells with shortness of breath. Patient is continued on 2 L and does not normally wear any oxygen outpatient. Pulmonary following and maintained on empiric antibiotics along with IV steroids and continued breathing treatments [id number]. Patient reports continued rib cage pain with coughing although feels somewhat improved with Toradol. Patient is afebrile with no reported chest pain or palpitations noted. Patient is tolerating diet. Encouraged to increase activity as tolerated and sitting up in the chair more often. 10/30/2023 Patient is seen and evaluated in follow-up today with pulmonary following. Patient continues on IV steroids along with breathing inhalational treatments and reports to feeling somewhat improved although continues to require oxygen at 2 L. Patient does not wear oxygen outpatient and have discussed with the patient along with nursing staff about weaning FiO2 as tolerated. Encouraged to increase activity as tolerated. Patient to continue with Tessalon Perles as patient has significant coughing with continued expiratory wheezing noted on exam. Encouraged incentive spirometer use at least 10 times every hour while awake. 10/31/2023 Patient is seen in follow-up today with pulmonary following continues to be bronchospastic and wheezing and shortness of breath with exertion. Patient continues on 2 L and discussed with nursing staff about weaning FiO2 as tolerated. Continue with incentive spirometer use and will continue on IV steroids along with continued breathing treatments. Patient continues on doxycycline and will complete the dose today. Will perform home O2 eval in the event patient may require oxygen on discharge. Patient reports some improvements in her shortness of breath although continues to have frequent coughing spells and continues to be significantly wheezing on exam. Chest x-ray today shows no acute cardiopulmonary disease or process. 11/01/2023 Patient is seen in follow-up today continues to be significantly bronchospastic on exam. Patient wheezing slightly improved although continues with expiratory wheezing noted at the bases and will continue on IV steroids along with DuoNeb treatments. Pulmonary following and recommending monitoring overnight with possible discharge planning in 24 hours. Patient is afebrile denies chest pain or worsening shortness of breath. Patient has been up and walking and reports to feeling slightly improved. Patient continues on 2 L via nasal cannula and has been weaning FiO2 as tolerated. Encouraged incentive spirometer use and weaning of the oxygen. Patient has completed doxycycline. 11/02/2023 Patient is seen in follow-up with pulmonary following continues to have significant wheezing with bronchospasms on exam and pulmonary planning on bronchoscopy tomorrow 11/03/2023. Patient is afebrile and has completed doxycycline. Patient is continued on IV steroids along with breathing treatments and is weaning FiO2 as tolerated. Patient has been up and walking the halls and slightly less dyspneic. Encouraged continued incentive spirometer use and increased activity. Review of systems: Constitutional: No reports of fatigue, fever, or chills Cardiovascular: No reports of chest pain or palpitations, reports chest wall pain from the coughing that feels improved Respiratory: reports of continued shortness of breath and continued cough although feels slightly improved GI: No reports of nausea, vomiting, or diarrhea : No reports of dysuria or retention Neurovascular: No reports of weakness or numbness, reports headache is improved All medications have been reviewed PHYSICAL EXAMINATION: Patient is a 62-year-old female who is sitting up in the bed, awake alert and oriented x 3, well-developed, well-nourished, obese.. HEENT: Normocephalic. Neck is supple. Pupils reactive. Nostrils clear. Oral cavity is moist. Neck reveals no JVD, carotid bruits, or thyromegaly. CHEST EXAMINATION: Trachea is central. Symmetrical expansion. Patient does have bilateral diffuse expiratory wheezing at the bases, diminished sounds and scattered coarse sounds. Nonlabored breathing.. CARDIAC: Normal S1, S2 with no gallops. No murmurs ABDOMEN: Soft. Obese. Bowel sounds present. Nontender. No organomegaly. No abdominal bruits. Extremities: reveal no edema. No clubbing or cyanosis Neurologically awake, alert, oriented x3 with well-coordinated movements. No focal deficits noted Skin: No rash or skin lesions. Psychiatric: Cooperative. Non-suicidal, Musculoskeletal: No joint swelling or deformity. Normal range of motion. Assessment: Acute COPD exacerbation due to underlying RSV infection. Failed outpatient treatment. Acute RSV infection. Chest x-ray showed no acute process. Severe GERD Nicotine addiction quit in April 2023 History of left axillary lymphadenopathy, follow-up as outpatient Hiatal hernia Obesity with BMI 31.1 GI and DVT prophylaxis with Protonix and heparin subcu Plan: Patient will be continued on IV Solu-Medrol 60 mg every 6 hourly and DuoNebs and Symbicort. Procalcitonin level was normal. Patient has completed doxycycline Pulmonary following recommending to continue with steroids and treatments. Patient is wearing 2 L of oxygen via nasal cannula and recommend to wean FiO2 as tolerated as patient does not wear oxygen outpatient. Plans for bronchoscopy on 11/03/2023 Continue incentive spirometer and encourage at least 10 times every hour while awake Home medications reviewed and resumed Encouraged to increase activity as tolerated and sitting up out of the bed more often Possible discharge in the next 24 hours once cleared by pulmonary The impression and plan of care has been dictated by Delilah Bob, Nurse Practitioner as directed. Dr. Tyler MD I have performed a history and examination and MDM of this patient, discussed the same with the dictator, and agree with the dictator's assessment and plan as written ,documented as a scribe. Based on total visit time, I have performed more than 50% of the visit. Objective - Vital Signs Vital signs: Vital Signs Temp 98.4 F 11/03/23 03:27 Pulse 75 11/03/23 03:27 Resp 16 11/03/23 03:27 BP 143/84 11/03/23 03:27 Pulse Ox 94 L 11/03/23 03:27 FiO2 Intake & Output 11/02/23 11/02/23 11/03/23 06:59 18:59 06:59 Intake Total 736 Balance 736 Intake: Oral 736 Other: Voiding Method Toilet # Voids 3 - Labs CBC & Chem 7: 10/28/23 07:02 10/28/23 07:02
[2023-11-03] MEDS ORDERED: MIDAZOLAM 2 MG/2 ML VIAL ONE (10:54)
[2023-11-03] MEDS ORDERED: KETAMINE HCL IN 0.9 % NACL 50 MG/5 ML SYRINGE ONE (10:54)
[2023-11-03] MEDS ORDERED: PROPOFOL 10 MG/ML 20 ML VIAL IV ONE (10:54)
[2023-11-03] MEDS ORDERED: GLYCOPYRROLATE 0.2 MG/ML 2 ML VIAL ONE (10:54)
[2023-11-03] MEDS ORDERED: LIDOCAINE 1% INJ 10MG/ML (20 ML MDV) ONE (10:54)
[2023-11-03] MEDS ORDERED: fentaNYL (PF) 50 MCG/ML 2 ML AMP ONE (10:54)
[2023-11-03 11:09] LABS: Basophils # (A) 0.03 X 10*3/uL (0.00-0.10); Basophils % (A) 0.2 %; Eosinophils # (A) 0 X 10*3/uL (0.04-0.35); Eosinophils % (A) 0 %; HCT 34.8 % (37.2-46.3); HGB 11.4 g/dL (12.0-15.0); Lymphocytes # (A) 0.78 X 10*3/uL (0.90-5.00); Lymphocytes % (A) 4.9 %; MCH 26.3 pg (27.0-32.0); MCHC 32.8 g/dL (32.0-37.0); MCV 80.2 FL (80.0-97.0); Monocytes # (A) 0.63 X 10*3/uL (0.20-1.00); Monocytes % (A) 3.9 %; NRBC Per 100 WBC 0.02 X 10*3/uL (0.00-0.01); Neutrophils # (A) 14.18 X 10*3/uL (1.80-7.70); Neutrophils % (A) 88.3 %; Platelet Count 298 X 10*3/uL (140-440); RBC 4.34 X 10*6/uL (4.10-5.20); RDW 16.1 % (11.5-14.5); WBC 16.06 X 10*3/uL (4.50-10.00)
[2023-11-03] MEDS: IV FLUID CONTINUATION 1,000 ML IV ONE (11:13)
[2023-11-03 11:19] LABS: BUN/Creat Ratio 39.67 Ratio (12.00-20.00); Blood Urea Nitrogen 23.8 mg/dL (9.0-27.0); Calcium 9.4 mg/dL (8.7-10.3); Carbon Dioxide 24.6 mmol/L (21.6-31.8); Chloride 103 mmol/L (96-109); Glucose 121 mg/dL (70-110); Magnesium 2.3 mg/dL (1.5-2.4); Potassium 4.6 mmol/L (3.5-5.5); Sodium 138 mmol/L (135-145)
--- NOTE | 2023-11-03 12:22 | P.PN ---
Subjective Progress Note Date: 11/03/23 I am seeing this patient in consultation today October 27, 2023 in the emergency room after she failed outpatient treatment for COPD exacerbation. Patient is a 62-year-old white female with past medical history significant for COPD, GERD, recent ex-smoker as of April,. Patient is known to have mild COPD, she does follow with Dr. Gonzales in the pulmonary office. Most recent FEV1 80% of predicted. She was recently treated for a COPD exacerbation outpatient last month. Starting last Tuesday the patient started to develop recurrent symptoms of progressively worsening shortness of breath, mostly nonproductive cough with occasional white frothy sputum, chest tightness, and wheezing. Denies fevers, chest pain, hemoptysis. Patient states that she received another round of azithromycin and Medrol Dosepak on Tuesday. Despite taking these medications, her symptoms became severe starting 2 days ago, and she presented the emergency room yesterday afternoon. On arrival, she was found to be positive for RSV. Chest x-ray does not show any acute cardiopulmonary process. No focal infiltrates or evidence of pneumonia. CBC on arrival unremarkable. No leukocytosis. BMP on arrival also unremarkable. She has been started on standard medications for COPD including bronchodilators, Symbicort inhaler, and IV Solu-Medrol. She is currently afebrile. She is resting in bed on 2 L nasal cannula, in no acute distress. She appears nontoxic. Vital signs are stable. The patient is seen today October 28, 2023 and follow-up on the regular medical floor. She is currently sitting up in bed. Awake and alert in no acute distress. Not much improved today compared to yesterday. Still somewhat b ronchospastic and wheezing. Dyspneic with conversation. Dyspneic with minimal exertion. She is maintaining O2 saturations in the 90s on 3 L/min per nasal cannula. She is afebrile. Hemodynamically stable. She is continued on DuoNeb ventilations, Symbicort, Solu-Medrol. Empiric antibiotics in the form of doxycycline. Procalcitonin was 0.03. She is having some yellow productive sputum. White count 14.5. Hemoglobin 11.4. Sodium 138. Potassium 4.8. Bicarb 24. BUN 23. Creatinine 0.8. Glucose 135. She is positive for RSV. The patient is seen today October 29, 2023 in follow-up on the regular medical floor. She is resting in bed. Awake and alert in no acute distress. She has been slow to progress. Still with some loose congested cough and wheezing. She is maintaining O2 saturations in the 90s on 3 L/min per nasal cannula. No new labs today. She is continued on DuoNeb elations, Symbicort, Solu-Medrol. Heparin for DVT prophylaxis. Empiric antibiotics in the form of Vibramycin. Remains on Tessalon Perles. The patient is seen today October 30, 2023 and follow-up on the regular medical floor. She is sitting up in bed. Awake and alert in no acute distress. She is still somewhat bronchospastic and wheezing. Not quite back to her baseline. She is dyspneic with minimal exertion. Dyspneic with conversation. She is continued on DuoNeb and elations, Symbicort, Solu-Medrol. Empiric antibiotics in the form of Vibramycin. Remains on Tessalon Perles. Heparin for DVT prophylaxis. No new labs today. The patient is seen today October 31, 2023 in follow-up on the regular medical floor. She is awake and alert in no acute distress. She has been slow to progr ess. She is still somewhat bronchospastic and wheezing. Still not back to her baseline. She is maintaining O2 saturations in the 90s on 2 L/min per nasal cannula. She is being treated for COPD exacerbation complicated by RSV. Her procalcitonin was 0.03. She remains on empiric antibiotics in the form of doxycycline. She is on DuoNeb ventilations, Symbicort, Solu-Medrol, Singulair. Remains on Tessalon Perles. Heparin for DVT prophylaxis. Today's chest x-ray reveals no acute cardiopulmonary process. The patient is seen today November 01, 2023 in follow-up on the regular medical floor. She is sitting up in bed. Awake and alert in no acute distress. Still with some loose cough. Still with some shortness of breath on exertion and conversation. She is maintaining good O2 saturations in the 90s on 2 L/min per nasal cannula. No IV fluids. Remains on DuoNeb inhalations, Symbicort, Solu- Medrol, Singulair. Heparin for DVT prophylaxis. The patient is seen today November 02, 2019 for follow-up on the regular medical floor. She is awake and alert in no acute distress. She has been slow to progress. She is still having a lot of cough and congestion. Difficulty expectorating her sputum. She has been continued on DuoNeb elations, Symbicort, Solu-Medrol, Singulair. Heparin for DVT prophylaxis. She is maintaining good O2 saturations in the 90s on room air. The patient is seen today November 03, 2023 and follow-up on the regular medical floor. She is awake and alert in no acute distress. Sitting up in bed. Continues with a loose nonproductive cough. She has been slow to progress. The plan is for bronchoscopy with BAL today. She is continued on Symbicort, Solu-Me drol, Singulair, DuoNeb ventilations. Heparin for DVT prophylaxis. Maintaining good O2 saturations in the 90s on room air. White count 16.0. Hemoglobin 11.4. Platelets 298. Sodium 138. Potassium 4.6. Bicarb 25. BUN 24. Creatinine 0.6. Glucose 121. Her procalcitonin had been 0.03. She did test positive for RSV on admission. Objective - Vital Signs Vital signs: Vital Signs Temp 98.1 F 11/03/23 08:00 Pulse 78 11/03/23 12:16 Resp 16 11/03/23 08:00 BP 149/86 11/03/23 08:00 Pulse Ox 95 11/03/23 08:00 FiO2 Intake & Output 11/02/23 11/03/23 11/03/23 18:59 06:59 18:59 Intake Total 736 200 Balance 736 200 Intake: IV 200 Oral 736 Other: Voiding Method Toilet Toilet # Voids 2 - Exam GENERAL EXAM: Alert, pleasant 62-year-old female, sitting up in bed, on room air, in no apparent distress. HEAD: Normocephalic. EYES: Normal reaction of pupils, equal size. NOSE: Clear with pink turbinates. THROAT: No erythema or exudates. NECK: No masses, no JVD. CHEST: No chest wall deformity. LUNGS: Equal air entry with bilateral end expiratory wheeze, rhonchi, diminished. CVS: S1 and S2 normal with no audible murmur, regular rhythm. ABDOMEN: No hepatosplenomegaly, normal bowel sounds, no guarding or rigidity. SPINE: No scoliosis or deformity SKIN: No rashes CENTRAL NERVOUS SYSTEM: No focal deficits, tone is normal in all 4 extremities. EXTREMITIES: There is no peripheral edema. No clubbing, no cyanosis. Peripher al pulses are intact. - Labs CBC & Chem 7: 11/03/23 07:25 11/03/23 07:25 Labs: Abnormal Lab Results - Last 24 Hours (Table) 11/03/23 11/03/23 Range/Units 07:25 07:25 WBC 16.06 H (4.50-10.00) X 10*3/uL Hgb 11.4 L (12.0-15.0) g/dL Hct 34.8 L (37.2-46.3) % MCH 26.3 L (27.0-32.0) pg RDW 16.1 H (11.5-14.5) % Immature Gran # 0.44 H (0.00-0.04) X 10*3/uL Neutrophils # 14.18 H (1.80-7.70) X 10*3/uL Lymphocytes # 0.78 L (0.90-5.00) X 10*3/uL Eosinophils # 0 L (0.04-0.35) X 10*3/uL NRBC/100 WBC Diff 0.02 H (0.00-0.01) X 10*3/uL BUN/Creatinine Ratio 39.67 H (12.00-20.00) Ratio Glucose 121 H (70-110) mg/dL Assessment and Plan Assessment: Acute COPD exacerbation, secondary to acute bronchitis and RSV infection. Chest x-ray October 31, 2023 continues to reveal no acute process. Bronchoscopy with BAL on November 03, 2023. GERD without esophagitis Hypothyroidism History of left axillary lymphadenopathy, being followed up outpatient History of hiatal hernia Recent ex-smoker as of April, Obesity, with a BMI of 31.1 kg/m Plan: The patient was seen and evaluated Medications and labs reviewed Bronchoscopy with BAL today Continue the current treatment plan Increase her activity as tolerated We will continue to follow I have personally seen and examined the patient, performed the documentation and the assessment and plan as written. Number of minutes spent on the visit: 10.
--- NOTE | 2023-11-03 12:31 | PCN ---
PROCEDURE NOTE PROCEDURES: Bronchoscopy, airway examination, therapeutic lavage, BAL right middle lobe. PREOPERATIVE DIAGNOSES: COPD exacerbation, tracheobronchomalacia, retained secretions. POSTOPERATIVE DIAGNOSES: COPD exacerbation, tracheobronchomalacia, retained secretions. TRAINING SPECIALIST: Dr. Tavera. TRAFFIC CONTROL SUPERVISOR: First surgical supply assistant was Alyssa Diaz. DESCRIPTION OF PROCEDURE: There was informed consent, universal timeout. The patient's procedure took place in [facility] room #1. Anesthesia provided, monitored anesthesia care. After the patient was adequately sedated and being fully monitored, the bronchoscope was inserted through the right nostril. It passed through the right nasopharynx into the oropharynx. The hypopharynx was identified. The hypopharyngeal structures, including anterior commissure, true cords, false cords, arytenoids, piriform sinuses, right and left, vallecula, all appeared normal. The glottic opening was topicalized. The bronchoscope was pushed through the glottic opening into the trachea. There was moderate tracheomalacia. There were secretions noted into the mid to distal trachea. There was suction. Tracheal rm was sharp. The right and left mainstem were tocolyzed. There was a thorough evaluation of both lungs including right upper lobe and its 3 segments, right middle lobe and its 2 segments, right lower lobe and its 5 segments. Left upper lobe proper and its 2 segments, lingula and its 2 segments and left lower lobe and its 4 segments. Findings were similar throughout and included mucosa, erythema, and hyperemia. There was some mucosal friability. There was vascular engorgement. There were thick viscid secretions noted throughout. They were mostly noted in the lower lobes. They were suctioned with the aid of saline lavage. Next, the bronchoscope was wedged into the right middle lobe. Formal BAL was obtained. 30 mL of turbid fluid will be sent to the laboratory for analysis including cytology and microbiology. The patient tolerated the procedure well without complications. The bronchoscope was withdrawn. There was no bleeding. The patient will be recovered. MMODL / IJN: [id number] /
--- NOTE | 2023-11-03 18:37 | P.PN ---
Subjective Progress Note Date: 11/03/23 Patient is a 62-year-old female with a known history of COPD/asthma, GERD, anxiety, current everyday smoker and occasional marijuana use presents to ER with complaints of worsening shortness of breath for the past 5 days. Patient was recently treated for COPD exacerbation as an outpatient. She has been having progressively worsening shortness of breath and cough with whitish sputum production and chest tightness. Denies any fever or chills. No nausea or vomiting or abdominal pain. Patient was started on antibiotics azithromycin and Medrol Dosepak as an outpatient on Tuesday. Patient started taking her medications getting worse. Presents to ER for further evaluation. In the ER chest x-ray showed no acute cardiopulmonary process. EKG showed sinus rhythm. Laboratory data showed WBC 7.2 hemoglobin 12.6 and platelets 295 BUN 16 creatinine 0.71 [place] episode not elevated. proBNP 129 and patient is tested positive for RSV PCR. 10/28/2023 Patient is seen in follow-up today with pulmonary following maintained on IV steroids along with breathing treatments and continued supplemental oxygen of 2 to 3 L. Patient does not wear oxygen outpatient. Patient continues to be extremely bronchospastic with significant expiratory wheezing noted on exam. Patient is afebrile and continues to report shortness of breath and frequent coughing spells with exertion. Patient tolerating diet with no reported nausea or vomiting. Patient also having some left-sided rib cage pain likely secondary to the cough and will add lidocaine patches. Encouraged to increase activity as tolerated. 10/29/2023 Patient is seen in follow-up today continues to have significant wheezing and frequent coughing spells with shortness of breath. Patient is continued on 2 L and does not normally wear any oxygen outpatient. Pulmonary following and maintained on empiric antibiotics along with IV steroids and continued breathing treatments [id number]. Patient reports continued rib cage pain with coughing although feels somewhat improved with Toradol. Patient is afebrile with no reported chest pain or palpitations noted. Patient is tolerating diet. Encouraged to increase activity as tolerated and sitting up in the chair more often. 10/30/2023 Patient is seen and evaluated in follow-up today with pulmonary following. Patient continues on IV steroids along with breathing inhalational treatments and reports to feeling somewhat improved although continues to require oxygen at 2 L. Patient does not wear oxygen outpatient and have discussed with the patient along with nursing staff about weaning FiO2 as tolerated. Encouraged to increase activity as tolerated. Patient to continue with Tessalon Perles as patient has significant coughing with continued expiratory wheezing noted on exam. Encouraged incentive spirometer use at least 10 times every hour while awake. 10/31/2023 Patient is seen in follow-up today with pulmonary following continues to be bronchospastic and wheezing and shortness of breath with exertion. Patient continues on 2 L and discussed with nursing staff about weaning FiO2 as tolerated. Continue with incentive spirometer use and will continue on IV steroids along with continued breathing treatments. Patient continues on doxycycline and will complete the dose today. Will perform home O2 eval in the event patient may require oxygen on discharge. Patient reports some improvements in her shortness of breath although continues to have frequent coughing spells and continues to be significantly wheezing on exam. Chest x-ray today shows no acute cardiopulmonary disease or process. 11/01/2023 Patient is seen in follow-up today continues to be significantly bronchospastic on exam. Patient wheezing slightly improved although continues with expiratory wheezing noted at the bases and will continue on IV steroids along with DuoNeb treatments. Pulmonary following and recommending monitoring overnight with possible discharge planning in 24 hours. Patient is afebrile denies chest pain or worsening shortness of breath. Patient has been up and walking and reports to feeling slightly improved. Patient continues on 2 L via nasal cannula and has been weaning FiO2 as tolerated. Encouraged incentive spirometer use and weaning of the oxygen. Patient has completed doxycycline. 11/02/2023 Patient is seen in follow-up with pulmonary following continues to have significant wheezing with bronchospasms on exam and pulmonary planning on bronchoscopy tomorrow 11/03/2023. Patient is afebrile and has completed doxycycline. Patient is continued on IV steroids along with breathing treatments and is weaning FiO2 as tolerated. Patient has been up and walking the halls and slightly less dyspneic. Encouraged continued incentive spirometer use and increased activity. 11/03/2023 Patient is seen today awaiting to undergo bronchoscopy with BAL with pulmonary. Patient is currently n.p.o. and slightly anxious about the overall procedure but is hoping to alleviate some of the continued cough. Patient is continued on IV steroids along with DuoNeb treatments and will continue. Will await bronchoscopy report and clearance from pulmonary to discuss discharge planning. Possible discharge in 24 hours. Review of systems: Constitutional: No reports of fatigue, fever, or chills Cardiovascular: No reports of chest pain or palpitations, reports chest wall pain from the coughing that feels improved Respiratory: reports of continued shortness of breath and continued cough although feels slightly improved GI: No reports of nausea, vomiting, or diarrhea : No reports of dysuria or retention Neurovascular: No reports of weakness or numbness, reports headache is improved All medications have been reviewed PHYSICAL EXAMINATION: Patient is a 62-year-old female who is sitting up in the bed, anxious, awake alert and oriented x 3, well-developed, well-nourished, obese.. HEENT: Normocephalic. Neck is supple. Pupils reactive. Nostrils clear. Oral cavity is moist. Neck reveals no JVD, carotid bruits, or thyromegaly. CHEST EXAMINATION: Trachea is central. Symmetrical expansion. Patient does have bilateral diffuse forced expiratory wheezing at the bases, diminished sounds and scattered coarse sounds. Nonlabored breathing.. CARDIAC: Normal S1, S2 with no gallops. No murmurs ABDOMEN: Soft. Obese. Bowel sounds present. Nontender. No organomegaly. No abdominal bruits. Extremities: reveal no edema. No clubbing or cyanosis Neurologically awake, alert, oriented x3 with well-coordinated movements. No focal deficits noted Skin: No rash or skin lesions. Psychiatric: Cooperative. Non-suicidal, Musculoskeletal: No joint swelling or deformity. Normal range of motion. Assessment: Acute COPD exacerbation due to underlying RSV infection. Failed outpatient treatment. Acute RSV infection. Chest x-ray showed no acute process. Severe GERD Nicotine addiction quit in April 2023 History of left axillary lymphadenopathy, follow-up as outpatient Hiatal hernia Obesity with BMI 31.1 GI and DVT prophylaxis with Protonix and heparin subcu Plan: Patient will be continued on IV Solu-Medrol 60 mg every 6 hourly and DuoNebs and Symbicort. Procalcitonin level was normal. Patient has completed doxycycline Pulmonary following recommending to continue with steroids and treatments. Patient currently on room air and reports continued coughing and wheezing. Patient is scheduled to undergo bronchoscopy this morning and will await report. Will discuss further with pulmonary on discharge planning. Continue incentive spirometer and encourage at least 10 times every hour while awake Home medications reviewed and resumed Encouraged to increase activity as tolerated and sitting up out of the bed more often Possible discharge in the next 24 hours once cleared by pulmonary The impression and plan of care has been dictated by Delilah Bob, Nurse Practitioner as directed. Dr. Tyler MD I have performed a history and examination and MDM of this patient, discussed the same with the dictator, and agree with the dictator's assessment and plan as written ,documented as a scribe. Based on total visit time, I have performed more than 50% of the visit. Objective - Vital Signs Vital signs: Vital Signs Temp 98.1 F 11/03/23 08:00 Pulse 76 11/03/23 08:57 Resp 16 11/03/23 08:00 BP 149/86 11/03/23 08:00 Pulse Ox 95 11/03/23 08:00 FiO2 Intake & Output 11/02/23 11/03/23 11/03/23 18:59 06:59 18:59 Intake Total 736 Balance 736 Intake: Oral 736 Other: Voiding Method Toilet # Voids 2 - Labs CBC & Chem 7: 11/03/23 07:25 11/03/23 07:25
[2023-11-04 03:50] VITALS: RESP 16; TEMP 98.5
[2023-11-04] MEDS: diphenhydrAMINE 25 MG CAP PO PRN (08:24)
[2023-11-04] MEDS: predniSONE 20 MG TAB PO SCH (08:24)
[2023-11-04 08:42] VITALS: BP 135/77
--- NOTE | 2023-11-04 11:34 | P.PN ---
Subjective Progress Note Date: 11/04/23 I am seeing this patient in consultation today October 27, 2023 in the emergency room after she failed outpatient treatment for COPD exacerbation. Patient is a 62-year-old white female with past medical history significant for COPD, GERD, recent ex-smoker as of April,. Patient is known to have mild COPD, she does follow with Dr. Gonzales in the pulmonary office. Most recent FEV1 80% of predicted. She was recently treated for a COPD exacerbation outpatient last month. Starting last Tuesday the patient started to develop recurrent symptoms of progressively worsening shortness of breath, mostly nonproductive cough with occasional white frothy sputum, chest tightness, and wheezing. Denies fevers, chest pain, hemoptysis. Patient states that she received another round of azithromycin and Medrol Dosepak on Tuesday. Despite taking these medications, her symptoms became severe starting 2 days ago, and she presented the emergency room yesterday afternoon. On arrival, she was found to be positive for RSV. Chest x-ray does not show any acute cardiopulmonary process. No focal infiltrates or evidence of pneumonia. CBC on arrival unremarkable. No leukocytosis. BMP on arrival also unremarkable. She has been started on standard medications for COPD including bronchodilators, Symbicort inhaler, and IV Solu-Medrol. She is currently afebrile. She is resting in bed on 2 L nasal cannula, in no acute distress. She appears nontoxic. Vital signs are stable. The patient is seen today October 28, 2023 and follow-up on the regular medical floor. She is currently sitting up in bed. Awake and alert in no acute distress. Not much improved today compared to yesterday. Still somewhat b ronchospastic and wheezing. Dyspneic with conversation. Dyspneic with minimal exertion. She is maintaining O2 saturations in the 90s on 3 L/min per nasal cannula. She is afebrile. Hemodynamically stable. She is continued on DuoNeb ventilations, Symbicort, Solu-Medrol. Empiric antibiotics in the form of doxycycline. Procalcitonin was 0.03. She is having some yellow productive sputum. White count 14.5. Hemoglobin 11.4. Sodium 138. Potassium 4.8. Bicarb 24. BUN 23. Creatinine 0.8. Glucose 135. She is positive for RSV. The patient is seen today October 29, 2023 in follow-up on the regular medical floor. She is resting in bed. Awake and alert in no acute distress. She has been slow to progress. Still with some loose congested cough and wheezing. She is maintaining O2 saturations in the 90s on 3 L/min per nasal cannula. No new labs today. She is continued on DuoNeb elations, Symbicort, Solu-Medrol. Heparin for DVT prophylaxis. Empiric antibiotics in the form of Vibramycin. Remains on Tessalon Perles. The patient is seen today October 30, 2023 and follow-up on the regular medical floor. She is sitting up in bed. Awake and alert in no acute distress. She is still somewhat bronchospastic and wheezing. Not quite back to her baseline. She is dyspneic with minimal exertion. Dyspneic with conversation. She is continued on DuoNeb and elations, Symbicort, Solu-Medrol. Empiric antibiotics in the form of Vibramycin. Remains on Tessalon Perles. Heparin for DVT prophylaxis. No new labs today. The patient is seen today October 31, 2023 in follow-up on the regular medical floor. She is awake and alert in no acute distress. She has been slow to progr ess. She is still somewhat bronchospastic and wheezing. Still not back to her baseline. She is maintaining O2 saturations in the 90s on 2 L/min per nasal cannula. She is being treated for COPD exacerbation complicated by RSV. Her procalcitonin was 0.03. She remains on empiric antibiotics in the form of doxycycline. She is on DuoNeb ventilations, Symbicort, Solu-Medrol, Singulair. Remains on Tessalon Perles. Heparin for DVT prophylaxis. Today's chest x-ray reveals no acute cardiopulmonary process. The patient is seen today November 01, 2023 in follow-up on the regular medical floor. She is sitting up in bed. Awake and alert in no acute distress. Still with some loose cough. Still with some shortness of breath on exertion and conversation. She is maintaining good O2 saturations in the 90s on 2 L/min per nasal cannula. No IV fluids. Remains on DuoNeb inhalations, Symbicort, Solu- Medrol, Singulair. Heparin for DVT prophylaxis. The patient is seen today November 02, 2019 for follow-up on the regular medical floor. She is awake and alert in no acute distress. She has been slow to progress. She is still having a lot of cough and congestion. Difficulty expectorating her sputum. She has been continued on DuoNeb elations, Symbicort, Solu-Medrol, Singulair. Heparin for DVT prophylaxis. She is maintaining good O2 saturations in the 90s on room air. The patient is seen today November 03, 2023 and follow-up on the regular medical floor. She is awake and alert in no acute distress. Sitting up in bed. Continues with a loose nonproductive cough. She has been slow to progress. The plan is for bronchoscopy with BAL today. She is continued on Symbicort, Solu-Me drol, Singulair, DuoNeb ventilations. Heparin for DVT prophylaxis. Maintaining good O2 saturations in the 90s on room air. White count 16.0. Hemoglobin 11.4. Platelets 298. Sodium 138. Potassium 4.6. Bicarb 25. BUN 24. Creatinine 0.6. Glucose 121. Her procalcitonin had been 0.03. She did test positive for RSV on admission. The patient is seen today November 04, 2023 in follow-up on the regular medical floor. She is sitting up in bed. Awake and alert in no acute distress. Feeling quite a bit better today compared to yesterday. No worsening shortness of breath, cough or congestion. She is maintaining good O2 saturations in the 90s on room air. She did undergo bronchoscopy with BAL yesterday. Cultures and cytology are pending. No new labs today. She is continued on Symbicort, DuoNeb ventilations, Singulair, Solu-Medrol. Objective - Vital Signs Vital signs: Vital Signs Temp 98.5 F 11/04/23 08:00 Pulse 86 11/04/23 08:30 Resp 16 11/04/23 08:00 BP 135/77 11/04/23 08:00 Pulse Ox 96 11/04/23 08:17 FiO2 Intake & Output 11/03/23 11/04/23 11/04/23 18:59 06:59 18:59 Intake Total 560 Balance 560 Intake: IV 200 Oral 360 Other: Voiding Method Toilet Toilet Toilet # Voids 3 2 - Exam GENERAL EXAM: Alert, oriented 62-year-old female, sitting up in bed, on room air, in no apparent distress. HEAD: Normocephalic. EYES: Normal reaction of pupils, equal size. NOSE: Clear with pink turbinates. THROAT: No erythema or exudates. NECK: No masses, no JVD. CHEST: No chest wall deformity. LUNGS: Equal air entry with bilateral end expiratory wheeze, rhonchi, diminished. CVS: S1 and S2 normal with no audible murmur, regular rhythm. ABDOMEN: No hepatosplenomegaly, normal bowel sounds, no guarding or rigidity. SPINE: No scoliosis or deformity SKIN: No rashes CENTRAL NERVOUS SYSTEM: No focal deficits, tone is normal in all 4 extremities. EXTREMITIES: There is no peripheral edema. No clubbing, no cyanosis. Peripheral pulses are intact. - Labs CBC & Chem 7: 11/03/23 07:25 11/03/23 07:25 Labs: Microbiology - Last 24 Hours (Table) 11/03/23 11:00 Gram Stain - Preliminary Bronchoalviolar Lavage - Right Assessment and Plan Assessment: Acute COPD exacerbation, secondary to acute bronchitis and RSV infection. Chest x-ray October 31, 2023 continues to reveal no acute process. Bronchoscopy with BAL on November 03, 2023. Cultures and cytology pending GERD without esophagitis Hypothyroidism History of left axillary lymphadenopathy, being followed up outpatient History of hiatal hernia Recent ex-smoker as of April, Obesity, with a BMI of 31.1 kg/m Plan: The patient was seen and evaluated Medications reviewed Stable and on room air Cleared for discharge from the pulmonary standpoint Continue her home pulmonary medications Complete a prednisone taper Follow-up in the office in 1 week I have personally seen and examined the patient, performed the documentation and the assessment and plan as written. Number of minutes spent on the visit: 10.
[2023-11-04 12:12] VITALS: PULSE 86
[2023-11-04 13:18] LABS: Appearance,BF Blood Tinged (Clear); RBC, Body Fluid 230 /UL (0-2000)
--- NOTE | 2023-11-06 12:20 | P.DS ---
Providers Date of admission: 10/28/23 07:25 Expected date of discharge: 11/04/23 Attending physician: Shelley Christopher Consults: 10/26/23 19:20 Consult Physician Routine Consulting Provider: Prem Breen Consult Reason/Comments: copd exacerbation Do you want consulting provider notified?: Yes, Notify in am Primary care physician: [facility] Course: Final diagnosis Acute COPD exacerbation due to underlying RSV infection. Failed outpatient treatment. S/p bronchoscopy with BAL, cultures pending Acute hypoxic respiratory failure secondary to above, improved and currently on room air Acute RSV infection. Chest x-ray showed no acute process. Severe GERD Nicotine addiction quit in April 2023 History of left axillary lymphadenopathy, follow-up as outpatient Hiatal hernia Obesity with BMI 31.1 GI and DVT prophylaxis with Protonix and heparin subcu Discharge disposition Patient is being discharged in a stable condition with guarded prognosis to home. Patient will follow-up with Dr. Singh Christopher in the outpatient setting upon discharge. Patient is to continue with prednisone taper and close outpatient follow-up with pulmonary as scheduled. BAL washings are pending and we will follow-up with pulmonary for results. Patient has completed a course of doxycycline prior to discharge. Total time taken is greater than 35 minutes. Hospital course This is a 62-year-old female who was recently admitted with increasing shortness of breath with acute COPD exacerbation as well as RSV infection positive. Patient with significant bronchospasms and wheezing and slow to improve requiring bronchoscopy with BAL. Cultures are pending thus far. Patient was also continued on IV steroids along with DuoNeb treatments [id number] and doxycycline. Patient has completed the doxycycline and will continue on a prednisone taper on discharge. Patient also requiring oxygen although has been weaned and currently maintaining oxygen saturations above 90% on room air. Patient to continue with incentive spirometer while at home and has been instructed to follow-up with primary care provider and pulmonary as scheduled. Patient reports to feeling much better and would like to go home. Please refer to pulmonary notes for further HPI. Currently no reports of chest pain, no reports of worsening shortness of breath, or palpitations. Patient is afebrile. No reports of nausea or vomiting and patient is tolerating diet. Patient will be discharged home today. Physical exam: Gen: This is a 62-year-old female who is awake, alert and oriented x 3, well- developed, well-nourished, obese HEENT: Head is atraumatic, normocephalic. Pupils equal, round. Sclerae is anicteric. NECK: Supple. No JVD. No lymphadenopathy. No thyromegaly. LUNGS: Diminished breath sounds bilaterally with some coarse rhonchi, expiratory wheezing although faint and improved from previous. No wheezes or rhonchi. No intercostal retractions. HEART: Regular rate and rhythm. No murmur. ABDOMEN: Soft. Obese. Bowel sounds are present. No masses. No tenderness. EXTREMITIES: No pedal edema. No calf tenderness. NEUROLOGICAL: Patient is awake, alert and oriented x3. Cranial nerves 2 through 12 are grossly intact. Please refer to medication reconciliation sheet for a list of medications. The impression and plan of care has been dictated by Delilah Bob, Nurse Practitioner as directed. Dr. Clementina MD I have performed a history and examination and MDM of this patient, discussed the same with the dictator, and agree with the dictator's assessment and plan as written ,documented as a scribe. Based on total visit time, I have performed more than 50% of the visit. Patient Condition at Discharge: Stable Plan - Discharge Summary Discharge Rx Participant: No New Discharge Prescriptions: New Budesonide-Formot 160-4.5 Mcg [Symbicort 160-4.5 Mcg Inhaler] 2 puff INHALATION RT-BID 30 Days #1 each diphenhydrAMINE [Benadryl] 25 mg PO DAILY PRN cap PRN Reason: Itching Lidocaine 4% Patch 2 patch TOPICAL DAILY #30 patch predniSONE 10 mg PO DIRECTED #30 tab guaiFENesin-DM 100-10MG/5ML [Robitussin DM] 10 ml PO Q6HR PRN #240 ml PRN Reason: Cough Acetaminophen Tab [Tylenol] 650 mg PO Q4HR PRN tab PRN Reason: Mild Pain Or Fever > 100.5 Continue Omeprazole 20 mg PO DAILY Montelukast [Singulair] 10 mg PO HS Verapamil HCl [Verapamil ER] 120 mg PO DAILY Atorvastatin [Lipitor] 20 mg PO HS methylPREDNISolone Dose Pack [Medrol Dose Pack] See Taper PO DIRECTED rOPINIRole HCL [Requip] 0.25 mg PO HS DULoxetine HCL [Cymbalta] 60 mg PO HS Cyclobenzaprine [Flexeril] 10 mg PO HS Albuterol Inhaler [Ventolin Hfa Inhaler] 1 - 2 puff INHALATION RT-Q6H PRN PRN Reason: Shortness Of Breath Or Wheezing Levothyroxine Sodium [Synthroid] 50 mcg PO [facility] Discharge Medication List Montelukast [Singulair] 10 mg PO HS 08/17/17 [History] Omeprazole 20 mg PO DAILY 08/17/17 [History] Verapamil HCl [Verapamil ER] 120 mg PO DAILY 08/17/17 [History] Atorvastatin [Lipitor] 20 mg PO HS 03/27/23 [History] Cyclobenzaprine [Flexeril] 10 mg PO HS 03/27/23 [History] DULoxetine HCL [Cymbalta] 60 mg PO HS 03/27/23 [History] Albuterol Inhaler [Ventolin Hfa Inhaler] 1 - 2 puff INHALATION RT-Q6H PRN 10/26/23 [History] Levothyroxine Sodium [Synthroid] 50 mcg PO [facility] 10/26/23 [History] methylPREDNISolone Dose Pack [Medrol Dose Pack] See Taper PO DIRECTED 0 10/26/23 [History] rOPINIRole HCL [Requip] 0.25 mg PO HS 10/26/23 [History] Acetaminophen Tab [Tylenol] 650 mg PO Q4HR PRN tab 11/04/23 [Rx] Budesonide-Formot 160-4.5 Mcg [Symbicort 160-4.5 Mcg Inhaler] 2 puff INHALATION RT-BID 30 Days #1 each 11/04/23 [Rx] Lidocaine 4% Patch 2 patch TOPICAL DAILY #30 patch 11/04/23 [Rx] diphenhydrAMINE [Benadryl] 25 mg PO DAILY PRN cap 11/04/23 [Rx] guaiFENesin-DM 100-10MG/5ML [Robitussin DM] 10 ml PO Q6HR PRN #240 ml 11/04/23 [Rx] predniSONE 10 mg PO DIRECTED #30 tab 11/04/23 [Rx] Follow up Appointment(s)/Referral(s): Prem Breen MD [STAFF PHYSICIAN] - 11/08/23 8:45 am Tarah Clark MD [Primary Care Provider] - 1-2 days Patient Instructions/Handouts: Respiratory Syncytial Virus (ED), Respiratory Syncytial Virus (DC) Activity/Diet/Wound Care/Special Instructions: Activity limited until follow-up Follow-up with primary care provider on discharge Follow-up with pulmonary outpatient in 1 week as scheduled Continue taking medications as prescribed Continue with inhalers Continue using incentive spirometer at least 10 times an hour while awake Discharge Disposition: HOME SELF-CARE
[2023-11-07 10:44] LABS: Nucleated Cells, Body Fluid 640 /UL
--- NOTE | 2023-11-09 13:19 | CDI ---
Documentation Clarification Form Date: 11/09/2023 01:08:34 PM From: Yesica Davila RN, CCDS Email: [email or web address] Admit Date: 10/28/2023 07:25:00 AM Patient Name: Brunilda Wan Visit Number: [id number] Discharge Date: 11/04/2023 01:51:00 PM ATTENTION: The Clinical Documentation Specialists (CDI) and [facility] Coding Staff appreciate your assistance in clarifying documentation. Please respond to the clarification below the line at the bottom and electronically sign. The CDI & [facility] Coding staff will review the response and follow-up if needed. Please note: Queries are made part of the Legal Health Record. If you have any questions, please contact the author of this message via ITS. Dr. Deena Mcrae Your patient had worsening shortness of breath, cough and required supplemental oxygen. Based on this information and the findings below, is there an additional diagnosis that is clinically appropriate for this patient? History/Risk Factors: COPD/asthma, GERD, anxiety, current every day smoker and occasional marijuana use. Presents to ER with complaints of worsening shortness of breath for the past 5 days. Tobacco use: current every day smoker Clinical Indicators: ED: "alert, in distress (mild respiratory distress)." H&P: "Does have shortness of breath. Patient does have bilateral diffuse wheezing, diminished sounds and scattered coarse sounds. 10/27 RSV+ 10/27 Pulmonary consult: "Continue supplemental oxygen." 10/28 IM: Patient continues to be extremely bronchospastic with significant expiratory wheezing noted on exam. Patient is wearing 2 to 3 L of oxygen via nasal cannula and recommend to wean FiO2 as tolerated as patient does not wear oxygen outpatient. 10/28 Vital signs: RR 18-22 10/26-11/04 Pulse oximetry: 91-98% H&P: Lung/Breathing assessment: bilateral diffuse wheezing, diminished sounds and scattered coarse sounds Treatment: 11/03 BAL: COPD exacerbation, tracheobronchomalacia, retained secretions. IS 10x/hr Breathing treatment: A/A QID 10/26-11/04; Symbicort 2 puffs BID 10/27-11/04; IV Solumedrol 125mg x1 on 10/26; IV Solumedrol 60mg IV Q6H 10/26-11/04 O2: 2-3LNC Is there an additional diagnosis that is clinically appropriate for this patient? [ x ] Acute Hypoxic Respiratory Failure [ ] Acute Respiratory Distress [ ] Other Diagnosis, please specify [ ] Unable to determine MTDD
== END 2023-11-04 13:51 | disposition home or self-care (01) | DRG 190 ==
LOC: EC 12:06 → 6NMEDSUR 19:10 → OBSVTOIN 10-28 07:25
PROVIDERS: ADMIT Hospitalist; ATTEND Hospitalist
PROC: 3E0F7SF Introduction of Other Gas into Respiratory Tract, Via Natural or Artificial Opening (ICD-10-PCS; 2023-10-27)
PROC: 0B9D8ZX Drainage of Right Middle Lung Lobe, Via Natural or Artificial Opening Endoscopic, Diagnostic (ICD-10-PCS; principal; 2023-11-03 11:00)
PROC: 0BD58ZX Extraction of Right Middle Lobe Bronchus, Via Natural or Artificial Opening Endoscopic, Diagnostic (ICD-10-PCS; principal; 2023-11-03 11:00)
DX: J44.1 Chronic obstructive pulmonary disease with (acute) exacerbation (principal); J96.01 Acute respiratory failure with hypoxia; J21.0 Acute bronchiolitis due to respiratory syncytial virus; T17.890A Other foreign object in other parts of respiratory tract causing asphyxiation, initial encounter; J98.09 Other diseases of bronchus, not elsewhere classified; K44.9 Diaphragmatic hernia without obstruction or gangrene; J44.0 Chronic obstructive pulmonary disease with (acute) lower respiratory infection; Z11.52 Encounter for screening for COVID-19; Z68.31 Body mass index [BMI] 31.0-31.9, adult; E66.9 Obesity, unspecified; K21.9 Gastro-esophageal reflux disease without esophagitis; E03.9 Hypothyroidism, unspecified; F17.210 Nicotine dependence, cigarettes, uncomplicated; Z71.6 Tobacco abuse counseling; F41.9 Anxiety disorder, unspecified; I10 Essential (primary) hypertension; Z79.890 Hormone replacement therapy; Z79.52 Long term (current) use of systemic steroids; Z82.49 Family history of ischemic heart disease and other diseases of the circulatory system; Z79.899 Other long term (current) drug therapy; Z88.1 Allergy status to other antibiotic agents; Z88.8 Allergy status to other drugs, medicaments and biological substances; Z90.49 Acquired absence of other specified parts of digestive tract; Z87.19 Personal history of other diseases of the digestive system
CPT/HCPCS: 31624; 36415; 71045; 71046; 80048; 80053; 83605; 83735; 83880; 84145; 85025; 85610; 85730; 87070; 87077; 87102; 87116; 87186; 87205; 87206; 87496; 87498; 87502; 87529; 87634; 87635; 87636; 87798; 88108; 88305; 89050; 93005; 94640; 94760; 96374; 96376; 99285

== ENCOUNTER → 2024-12-05 | Outpatient (CLI) | payer MEDICARE, OTHER ==
--- NOTE | 2024-12-05 09:11 | MM ---
Reason for Exam: Screening (asymptomatic). Last mammogram was performed 1 year(s) and 3 month(s) ago. Patient History: Menarche at age 15. First Full-Term at age 20. Postmenopausal. Patient used Hormonal Contraceptives for 7 years. Risk Values: Mona 5 year model risk: 1.1%. NCI Lifetime model risk: 5.2%. Prior Study Comparison: 07/31/2020 Bilateral Screening Mammogram, [facility]. 01/27/2022 Bilateral Screening Mammogram, [facility]. 09/07/2023 Bilateral MG 3D screening mammo w/cad, [facility]. Tissue Density: The breasts are almost entirely fatty. Findings: Analyzed By CAD. There is no suspicious group of microcalcifications or new suspicious mass in either breast. Overall Assessment: Negative, BI-RAD 1 Management: Screening Mammogram of both breasts in 1 year. Patient should continue monthly self-breast exams. A clinical breast exam by your physician is recommended on an annual basis. This exam should not preclude additional follow-up of suspicious palpable abnormalities. Note on Mona scores and lifetime risk: 1. A Mona score greater than 3% is considered moderate risk. If this is the case, consider specialist referral to assess eligibility for a risk reducing agent. 2. If overall lifetime risk for the development of breast cancer is 20% or higher, the patient may qualify for future screening with alternating mammogram and breast MRI. [facility], , 12/05/2024 9:08 AM. Electronically signed and approved by: Ana Chery M.D. Radiologist
== END | disposition home or self-care (01) ==
LOC: RADMAMWWP 07:35
PROVIDERS: ATTEND Family Medicine
DX: Z12.31 Encounter for screening mammogram for malignant neoplasm of breast (principal); R92.313 Mammographic fatty tissue density, bilateral breasts; Z78.0 Asymptomatic menopausal state; Z92.0 Personal history of contraception
CPT/HCPCS: 77063; 77067

== ENCOUNTER 2025-01-23 09:32 | Day surgery (SDC) | payer MEDICARE, OTHER ==
[2025-01-21 10:00] VITALS: BMI 27.1
[~2025-01-23 09:32] MED LIST: LIDOCAINE 1% (10MG/ML) FOR IV START INTRADERMA PRN; droPERidol 2.5 MG/ML VIAL IVP ONE
[2025-01-23] MEDS: IV FLUID CONTINUATION 1,000 ML IV ONE (10:13)
[2025-01-23] MEDS: OXYMETAZOLINE 0.05% NASL SPRAY 1 SPRAY BOTTLE EA NOSTRIL PRN (10:15)
[2025-01-23] MEDS: ONDANSETRON 4 MG/2 ML VIAL IVP ONE (10:16)
[2025-01-23] MEDS: SCOPOLAMINE 1 MG/72 HR PATCH TRANSDERM ONE (10:17)
[2025-01-23] MEDS: FAMOTIDINE 20 MG/2 ML VIAL IV PRN (10:18)
[2025-01-23] MEDS: LACTATED RINGERS 1,000 ML IV SCH (10:19)
[2025-01-23] MEDS: DEXAMETHASONE SOD PHOSPHATE 4 MG/ML 1 ML VIAL IV ONE (10:19)
[2025-01-23] MEDS: ALBUTEROL NEBULIZED 2.5 MG/3 ML INHALATION STA (10:37)
[2025-01-23] MEDS: MIDAZOLAM 2 MG/2 ML VIAL IV ONE (10:49)
[2025-01-23] MEDS ORDERED: GLYCOPYRROLATE 0.2 MG/ML 2 ML VIAL ONE (11:44)
[2025-01-23] MEDS ORDERED: PROPOFOL 10 MG/ML 20 ML VIAL IV ONE (11:44)
[2025-01-23] MEDS ORDERED: SUCCINYLCHOLINE CHLORIDE 200 MG/10 ML VIAL IV ONE (11:44)
[2025-01-23] MEDS ORDERED: ROCURONIUM 10 MG/ML (5 ML VIAL) IV ONE (11:44)
[2025-01-23] MEDS ORDERED: NEOSTIGMINE 1 MG/ML 10 ML VIAL ONE (11:44)
[2025-01-23] MEDS ORDERED: LIDOCAINE 1% INJ 10MG/ML (20 ML MDV) ONE (11:44)
[2025-01-23] MEDS ORDERED: MIDAZOLAM 2 MG/2 ML VIAL ONE (11:44)
[2025-01-23] MEDS: ceFAZolin 2 GM in DEXTROSE 5% IN WATER 50 ML IVPB PRN (11:44)
[2025-01-23] MEDS ORDERED: fentaNYL (PF) 50 MCG/ML 2 ML AMP ONE (11:44)
[2025-01-23] MEDS: LIDOCAINE 1%-EPI 1:100,000 20 ML VIAL SUBMUCOSAL ONE ×2 (11:55)
--- NOTE | 2025-01-23 12:19 | P.OP ---
Date of Procedure: 01/23/25 Preoperative Diagnosis: chronic right maxillary sinusitis Postoperative Diagnosis: same Procedure(s) Performed: right sided functional endoscopic sinus surgery including right maxillary antrostomy with removal of tissue from the right maxillary sinus Anesthesia: RENNY Surgeon: Ted Tomas Estimated Blood Loss (ml): 5 Pathology: other (sinus contents) Condition: stable Disposition: PACU Indications for Procedure: this is a 64-year-old white female whose had difficulties with chronic sinusitis for several years. She had initial endoscopic sinus surgery in 2009 and balloon sinus plasty in 2017. She has redeveloped issues with the right maxillary sinus and had recent CT which showed soft tissue inflammation in the area of the right maxillary sinus and middle meatus Operative Findings: right maxillary ostium was patent but small also diffuse polypoid change of the lateral aspect of the right middle turbinate which was also lateralized. There was some clear mucous drainage and small cysts within the maxillary sinus also Description of Procedure: The patient was brought into the operative suite and placed in a supine position. The patient underwent induction of general anesthesia with oral endotracheal intubation without difficulty. The patient was prepped and draped in the usual aseptic fashion with the orbits in the operating field for monitoring to the case and the computed tomography scan was on the computer screen for review throughout the case. 1% lidocaine with 1 :100,000 epinephrine was infused submucosally into the right lateral nasal wall and anterior tip of the right middle turbinate. 0 endoscope was utilized bilaterally. Proceeding on the right the middle turbinate was medialized with a [place] elevator and the polypoid aspect of the middle turbinate was removed with microdebrider. The maxillary antrostomy was enlarged at the expense of the anterior and posterior fontanelle taking care anteriorly not to injure the lacrimal bone. 30 endoscope was used to explore the maxillary sinus and small cysts were removed with giraffe forceps. [Nasopore nasal dressing was placed in the middle meatus on the right under direct visualization]. The patient was suctioned in oral gastric fashion and was allowed to emerge from general anesthesia having tolerated procedure well and was extubated in the operating suite and transferred to the postoperative recovery area in satisfactory condition.
[2025-01-23 12:29] VITALS: TEMP 98
[2025-01-23] MEDS: HYDROmorphone 0.5 MG/0.5 ML SYRINGE IVP PRN (12:52)
[2025-01-23 14:06] VITALS: RESP 16
[2025-01-23] MEDS: LACTATED RINGERS 500 ML IV ONE ×2 (14:08→15:22)
[2025-01-23] MEDS: METOCLOPRAMIDE 5 MG/ML 2 ML VIAL IVP STA (14:25)
[2025-01-23 14:52] VITALS: BP 115/64; PULSE 51
== END 2025-01-23 15:39 | disposition home or self-care (01) ==
LOC: OR 09:32
PROVIDERS: ATTEND Otolaryngology
DX: J32.0 Chronic maxillary sinusitis (principal); J44.89 Other specified chronic obstructive pulmonary disease; K21.9 Gastro-esophageal reflux disease without esophagitis; E07.9 Disorder of thyroid, unspecified; M54.2 Cervicalgia; M19.90 Unspecified osteoarthritis, unspecified site; Z86.79 Personal history of other diseases of the circulatory system; Z87.891 Personal history of nicotine dependence; Z90.49 Acquired absence of other specified parts of digestive tract; Z88.5 Allergy status to narcotic agent; Z79.890 Hormone replacement therapy; Z79.899 Other long term (current) drug therapy
CPT/HCPCS: 31240; 31267; J2250; J1100; J2765; J0690; J2405; J1171; J1308